=== PATIENT | female | born 1965 | race Hispanic/Latino ===

== ENCOUNTER 2020-12-04 08:28 | Inpatient (IN) | payer OTHER ==
[2020-12-04] VITALS (12 sets, daily range): BP systolic 123–154; BP diastolic 64–89
[~2020-12-04] VITALS: Ht 170.2 cm; Wt 59.9 kg
[2020-12-04] MEDS ORDERED: ZOSYN 3.375GM +NS 50ML IV ONE (09:15)
[2020-12-04] MEDS ORDERED: ACETAMINOPHEN 325 MG TAB PO ONE (09:15)
[2020-12-04] MEDS ORDERED: DIPH,PERTUSS(ACELL),TET VAC/PF 0.5 ML VIAL IM SCH (09:15)
[2020-12-04] MEDS ORDERED: NACL 0.9% 1000ML 1,000 ML IV ONE (09:15)
[2020-12-04] MEDS ORDERED: 0.9% NACL 50ML 50 ML IV ONE ×2 (09:34→18:57)
[2020-12-04 09:59] LABS: BASOPHILS % (AUTO) 0.1 % (0.0-5.0); EOSINOPHILS % (AUTO) 0.9 % (0.0-8.0); HEMATOCRIT 35.8 % (36-48); MEAN CORPUSCULAR HEMOGLOBIN 26.4 pg (27.0-33.0); MEAN CORPUSCULAR HGB CONC 30.7 g/dL (32.0-36.0); MEAN CORPUSCULAR VOLUME 85.9 fL (79-99); MONOCYTES % (AUTO) 5.2 % (3.0-13.0); NEUTROPHILS % (AUTO) 85.3 % (40.0-77.0); PLATELET COUNT (AUTO) 229 K/uL (130-400); RED BLOOD CELL COUNT(AUTO) 4.17 MIL/uL (4.00-5.50); RED CELL DISTRIBUTION WIDTH 14.2 % (11.0-15.5); WHITE BLOOD COUNT (AUTO) 7.6 K/uL (4.8-10.8)
[2020-12-04] MEDS: NACL 0.9% 1000ML 1,000 ML IV SCH ×2 (10:00→21:00)
[2020-12-04] MEDS ORDERED: LACTULOSE 20 GM/30 ML UDCUP PO PRN (10:00)
[2020-12-04] MEDS ORDERED: NACL 0.9% 1000ML 1,000 ML IV SCH (10:00)
[2020-12-04] MEDS ORDERED: ACETAMINOPHEN 325 MG TAB PO PRN ×2 (10:00)
[2020-12-04] MEDS ORDERED: ONDANSETRON 4MG INJ IV PRN (10:00)
[2020-12-04] MEDS ORDERED: RENAL DOSE IV SCH (10:00)
[2020-12-04] MEDS ORDERED: VANCOMYCIN PROTOCOL PER PHARMACY IV PRN (10:00)
[2020-12-04] MEDS ORDERED: MORPHINE 4 MG SYG IV PRN (10:00)
[2020-12-04 10:01] LABS: APPEARANCE,URINE Clear (CLEAR); BILIRUBIN,URINE Negative (NEGATIVE); COLOR,URINE Yellow (YELLOW); GLUCOSE, URINE (UA) >=1000 mg/dL (NEGATIVE); KETONES,URINE Negative (NEGATIVE); LEUKOCYTE ESTERASE ,URINE Negative (NEGATIVE); NITRATE,URINE Negative (NEGATIVE); OCCULT BLOOD,URINE Negative (NEGATIVE); PH,URINE 7.5 (5.0-8.0); PROTEIN,URINE Negative (NEGATIVE)
[2020-12-04] MEDS ORDERED: TETANUS/DIPHTHERIA TOXOID [ADULT] 0.5 ML VIAL IM ONE ×2 (10:04→10:15)
[2020-12-04 10:10] LABS: ALBUMIN 3.1 g/dL (3.5-5.0); CREATININE 0.9 mg/dL (0.5-1.5); POTASSIUM 5.1 mmol/L (3.5-5.1)
[2020-12-04 10:11] LABS: BILIRUBIN,TOTAL 0.2 mg/dL (0.2-1.0); TOTAL PROTEIN, SERUM 8.7 g/dL (6.0-8.3)
[2020-12-04 10:23] LABS: BACTERIA,URINE Rare /HPF (None Seen); RBC,URINE 0-1 /HPF (0-1); SQUAMOUS EPITHELIAL CELL,UR Rare /HPF (0-2); WBC,URINE 0-1 /HPF (0-1)
[2020-12-04] MEDS: VANCOMYCIN KIT 250 ML IV SCH ×2 (10:43→21:00)
[2020-12-04 10:49] LABS: CRP QUANTITATIVE 167.8 mg/L (0.00-9.0)
[2020-12-04 11:02] LABS: ABG OXYGEN SATURATION 37.7 % (95.0-99.0); HCO3,VENOUS BLOOD GAS 25.6 (21.0-28.0); PCO2,VENOUS BLOOD GAS 46 (32-45); PH,VENOUS BLOOD GAS 7.363 (7.350-7.450)
[2020-12-04 11:02] LABS: ERYTHROCYTE SEDIMENTATION RATE 95 MM/HR (0-30)
[2020-12-04] MEDS: INSULIN HUMULIN R 100 UNIT/ML 3ML SQ SCH ×4 (11:27→22:06)
[2020-12-04] MEDS ORDERED: INSULIN HUMULIN R 100 UNIT/ML 3ML SQ SCH (11:30)
[2020-12-04] MEDS ORDERED: ZOSYN 3.375GM+NS 50ML 50 ML IV SCH (13:00)
[2020-12-04] MEDS ORDERED: GADOTERATE MEGLUMINE 10 MMOL/20 ML VIAL IV ONE (15:09)
[2020-12-04] MEDS: ZOSYN 3.375GM+NS 50ML 50 ML IV SCH (18:53)
[2020-12-04] MEDS: FAMOTIDINE 20MG VIAL IV SCH (21:56)
[2020-12-04] MEDS: INSULIN GLARGINE 100 UNITS/ML 10 ML VIAL SQ SCH (22:01)
[2020-12-05] MEDS: NACL 0.9% 1000ML 1,000 ML IV SCH ×4 (00:09→20:46)
[2020-12-05] MEDS: ZOSYN 3.375GM+NS 50ML 50 ML IV SCH ×3 (02:00→18:36)
[2020-12-05 04:00] VITALS: BP 120/69
[2020-12-05 05:16] LABS: BASOPHILS % (AUTO) 0.4 % (0.0-5.0); EOSINOPHILS % (AUTO) 2.2 % (0.0-8.0); HEMATOCRIT 31.2 % (36-48); LYMPHOCYTES % (AUTO) 15.6 % (21.0-51.0); MEAN CORPUSCULAR HEMOGLOBIN 26.6 pg (27.0-33.0); MEAN CORPUSCULAR HGB CONC 31.1 g/dL (32.0-36.0); MEAN CORPUSCULAR VOLUME 85.7 fL (79-99); MONOCYTES % (AUTO) 7.7 % (3.0-13.0); NEUTROPHILS % (AUTO) 73.7 % (40.0-77.0); PLATELET COUNT (AUTO) 229 K/uL (130-400); RED BLOOD CELL COUNT(AUTO) 3.64 MIL/uL (4.00-5.50); RED CELL DISTRIBUTION WIDTH 14.1 % (11.0-15.5); WHITE BLOOD COUNT (AUTO) 6.9 K/uL (4.8-10.8)
[2020-12-05 05:26] LABS: % IRON SATURATION 6.7 % (22-44)
[2020-12-05 05:39] LABS: CREATININE 0.8 mg/dL (0.5-1.5); POTASSIUM 4.1 mmol/L (3.5-5.1); THYROID STIMULATING HORMONE 0.61 uIU/mL (0.36-3.74)
[2020-12-05] MEDS: INSULIN HUMULIN R 100 UNIT/ML 3ML SQ SCH ×7 (06:17→21:11)
[2020-12-05] MEDS: FAMOTIDINE 20MG VIAL IV SCH ×3 (08:04→21:17)
[2020-12-05] MEDS: ENOXAPARIN SODIUM 40 MG/0.4 ML SYRINGE SQ SCH (08:05)
[2020-12-05 08:07] VITALS: BP 123/69
[2020-12-05] MEDS: VANCOMYCIN KIT 250 ML IV SCH (08:08)
[2020-12-05 11:33] VITALS: BP 128/74
[2020-12-05] MEDS ORDERED: COMPOUND IV MISC 1 EACH IVSOLN MISC PRN ×2 (15:00→15:15)
[2020-12-05] MEDS ORDERED: IRON SUCROSE COMPLEX 300 MG in 0.9% NACL 50ML 50 ML IV SCH (15:00)
[2020-12-05 16:30] VITALS: BP 144/78
[2020-12-05 19:00] VITALS: BP 160/87
[2020-12-05] MEDS: IRON SUCROSE COMPLEX 300 MG in 0.9% NACL 50ML 50 ML IV SCH (20:45)
[2020-12-05] MEDS ORDERED: COMPOUND IV REFRIGERATED 1 EACH IVSOLN MISC PRN (21:00)
[2020-12-05] MEDS: INSULIN GLARGINE 100 UNITS/ML 10 ML VIAL SQ SCH (21:13)
[2020-12-05] MEDS: [UNRECOGNIZED DRUG - OTHER] IV SCH (22:29)
[2020-12-05] MEDS: VANCOMYCIN IV SCH (22:29)
[2020-12-05 23:00] VITALS: BP 145/77
[2020-12-06] VITALS (20 sets, daily range): BP systolic 97–149; BP diastolic 54–83
[2020-12-06] MEDS: ZOSYN 3.375GM+NS 50ML 50 ML IV SCH ×3 (01:54→16:49)
[2020-12-06] MEDS: NACL 0.9% 1000ML 1,000 ML IV SCH ×4 (02:31→22:10)
[2020-12-06 04:07] LABS: BASOPHILS % (AUTO) 0.3 % (0.0-5.0); EOSINOPHILS % (AUTO) 2.4 % (0.0-8.0); HEMATOCRIT 30.4 % (36-48); LYMPHOCYTES % (AUTO) 19.1 % (21.0-51.0); MEAN CORPUSCULAR HEMOGLOBIN 25.8 pg (27.0-33.0); MEAN CORPUSCULAR HGB CONC 30.3 g/dL (32.0-36.0); MEAN CORPUSCULAR VOLUME 85.2 fL (79-99); MONOCYTES % (AUTO) 7.1 % (3.0-13.0); NEUTROPHILS % (AUTO) 70.6 % (40.0-77.0); PLATELET COUNT (AUTO) 229 K/uL (130-400); RED BLOOD CELL COUNT(AUTO) 3.57 MIL/uL (4.00-5.50); RED CELL DISTRIBUTION WIDTH 14.3 % (11.0-15.5); WHITE BLOOD COUNT (AUTO) 5.8 K/uL (4.8-10.8)
[2020-12-06 04:17] LABS: CREATININE 0.6 mg/dL (0.5-1.5); CRP QUANTITATIVE 70.7 mg/L (0.00-9.0); POTASSIUM 3.7 mmol/L (3.5-5.1)
[2020-12-06 05:35] LABS: ERYTHROCYTE SEDIMENTATION RATE 114 MM/HR (0-30)
[2020-12-06] MEDS: INSULIN HUMULIN R 100 UNIT/ML 3ML SQ SCH ×7 (06:54→21:27)
[2020-12-06] MEDS ORDERED: KETAMINE 50MG/ML SYRINGE 50 MG/ML DISP.SYRIN IV ONE (08:16)
[2020-12-06] MEDS ORDERED: PROPOFOL 1000 MG/100 ML 100 ML IV ONE (08:16)
[2020-12-06] MEDS ORDERED: MIDAZOLAM HCL 1 MG/ML 2ML VIAL ONE (08:17)
[2020-12-06] MEDS: VANCOMYCIN IV SCH ×2 (09:41→20:12)
[2020-12-06] MEDS: [UNRECOGNIZED DRUG - OTHER] IV SCH ×2 (09:41→20:12)
[2020-12-06] MEDS: ENOXAPARIN SODIUM 40 MG/0.4 ML SYRINGE SQ SCH (09:41)
[2020-12-06] MEDS: FAMOTIDINE 20MG VIAL IV SCH ×2 (09:43→20:11)
[2020-12-06] MEDS: MORPHINE 2 MG SYG IV PRN ×2 (15:23→22:53)
[2020-12-06] MEDS ORDERED: BUPIVACAINE/PF 0.5% 30ML VIAL ONE (16:50)
[2020-12-06] MEDS ORDERED: LIDOCAINE HCL 1% 20 ML VIAL ONE (16:50)
[2020-12-06] MEDS: IRON SUCROSE COMPLEX 300 MG in 0.9% NACL 50ML 50 ML IV SCH (21:26)
[2020-12-06] MEDS: INSULIN GLARGINE 100 UNITS/ML 10 ML VIAL SQ SCH (21:27)
[2020-12-07] MEDS: ZOSYN 3.375GM+NS 50ML 50 ML IV SCH ×3 (01:57→16:47)
[2020-12-07 03:03] VITALS: BP 103/62
[2020-12-07 04:43] LABS: BASOPHILS % (AUTO) 0.4 % (0.0-5.0); EOSINOPHILS % (AUTO) 2.8 % (0.0-8.0); HEMATOCRIT 29.9 % (36-48); LYMPHOCYTES % (AUTO) 22.1 % (21.0-51.0); MEAN CORPUSCULAR HEMOGLOBIN 26.4 pg (27.0-33.0); MEAN CORPUSCULAR HGB CONC 30.8 g/dL (32.0-36.0); MEAN CORPUSCULAR VOLUME 85.7 fL (79-99); MONOCYTES % (AUTO) 8.9 % (3.0-13.0); NEUTROPHILS % (AUTO) 65.1 % (40.0-77.0); PLATELET COUNT (AUTO) 240 K/uL (130-400); RED BLOOD CELL COUNT(AUTO) 3.49 MIL/uL (4.00-5.50); RED CELL DISTRIBUTION WIDTH 14.6 % (11.0-15.5); WHITE BLOOD COUNT (AUTO) 7.1 K/uL (4.8-10.8)
[2020-12-07 04:46] LABS: CREATININE 0.8 mg/dL (0.5-1.5)
[2020-12-07] MEDS: NACL 0.9% 1000ML 1,000 ML IV SCH (06:02)
[2020-12-07] MEDS: INSULIN HUMULIN R 100 UNIT/ML 3ML SQ SCH ×7 (06:11→21:00)
[2020-12-07 08:26] VITALS: BP 124/69
[2020-12-07] MEDS: ENOXAPARIN SODIUM 40 MG/0.4 ML SYRINGE SQ SCH (08:45)
[2020-12-07] MEDS: FAMOTIDINE 20MG VIAL IV SCH (08:45)
[2020-12-07] MEDS: [UNRECOGNIZED DRUG - OTHER] IV SCH ×2 (08:46→21:04)
[2020-12-07] MEDS: VANCOMYCIN IV SCH ×2 (08:46→21:04)
[2020-12-07] MEDS ORDERED: MORPHINE 2 MG SYG IVP PRN (10:45)
[2020-12-07] MEDS ORDERED: APAP-CODEINE 300/30MG TAB PO PRN ×2 (10:45)
[2020-12-07 11:57] VITALS: BP 116/66
[2020-12-07 16:45] VITALS: BP 126/63
[2020-12-07 20:00] VITALS: BP 112/63
[2020-12-07] MEDS: FAMOTIDINE 20MG TAB PO SCH (20:00)
[2020-12-07] MEDS: IRON SUCROSE COMPLEX 300 MG in 0.9% NACL 50ML 50 ML IV SCH (20:01)
[2020-12-07] MEDS: INSULIN GLARGINE 100 UNITS/ML 10 ML VIAL SQ SCH (21:50)
[2020-12-07 23:56] VITALS: BP 140/72
[2020-12-08] MEDS: ZOSYN 3.375GM+NS 50ML 50 ML IV SCH ×3 (01:51→17:28)
[2020-12-08 04:00] VITALS: BP 141/75
[2020-12-08 04:16] LABS: BASOPHILS % (AUTO) 0.3 % (0.0-5.0); CREATININE 0.6 mg/dL (0.5-1.5); HEMATOCRIT 30.9 % (36-48); LYMPHOCYTES % (AUTO) 17.4 % (21.0-51.0); MAGNESIUM 1.8 mg/dL (1.80-2.40); MEAN CORPUSCULAR HEMOGLOBIN 26.2 pg (27.0-33.0); MEAN CORPUSCULAR HGB CONC 30.7 g/dL (32.0-36.0); MEAN CORPUSCULAR VOLUME 85.4 fL (79-99); MONOCYTES % (AUTO) 7.9 % (3.0-13.0); NEUTROPHILS % (AUTO) 71.2 % (40.0-77.0); PLATELET COUNT (AUTO) 238 K/uL (130-400); POTASSIUM 4.4 mmol/L (3.5-5.1); RED BLOOD CELL COUNT(AUTO) 3.62 MIL/uL (4.00-5.50); RED CELL DISTRIBUTION WIDTH 14.7 % (11.0-15.5); WHITE BLOOD COUNT (AUTO) 7.9 K/uL (4.8-10.8)
[2020-12-08 05:26] LABS: ERYTHROCYTE SEDIMENTATION RATE 104 MM/HR (0-30)
[2020-12-08] MEDS: INSULIN HUMULIN R 100 UNIT/ML 3ML SQ SCH ×7 (06:34→20:22)
[2020-12-08 07:00] VITALS: BP 128/74
[2020-12-08] MEDS: FAMOTIDINE 20MG TAB PO SCH ×2 (08:47→20:21)
[2020-12-08] MEDS: VANCOMYCIN IV SCH ×2 (08:48→20:23)
[2020-12-08] MEDS: [UNRECOGNIZED DRUG - OTHER] IV SCH ×2 (08:48→20:23)
[2020-12-08] MEDS: ENOXAPARIN SODIUM 40 MG/0.4 ML SYRINGE SQ SCH (08:48)
[2020-12-08 11:00] VITALS: BP 122/67
[2020-12-08 15:00] VITALS: BP 115/65
[2020-12-08] MEDS: IRON SUCROSE COMPLEX 300 MG in 0.9% NACL 50ML 50 ML IV SCH (19:24)
[2020-12-08 19:49] VITALS: BP 130/67
[2020-12-08] MEDS: INSULIN GLARGINE 100 UNITS/ML 10 ML VIAL SQ SCH (20:23)
[2020-12-08 23:57] VITALS: BP 129/74
[2020-12-09] MEDS: ZOSYN 3.375GM+NS 50ML 50 ML IV SCH ×3 (01:46→16:46)
[2020-12-09 03:48] LABS: BASOPHILS % (AUTO) 0.6 % (0.0-5.0); EOSINOPHILS % (AUTO) 3.2 % (0.0-8.0); HEMATOCRIT 28.9 % (36-48); LYMPHOCYTES % (AUTO) 20.3 % (21.0-51.0); MEAN CORPUSCULAR HEMOGLOBIN 26.3 pg (27.0-33.0); MEAN CORPUSCULAR HGB CONC 30.8 g/dL (32.0-36.0); MEAN CORPUSCULAR VOLUME 85.3 fL (79-99); MONOCYTES % (AUTO) 10.1 % (3.0-13.0); NEUTROPHILS % (AUTO) 62.1 % (40.0-77.0); PLATELET COUNT (AUTO) 270 K/uL (130-400); RED BLOOD CELL COUNT(AUTO) 3.39 MIL/uL (4.00-5.50); RED CELL DISTRIBUTION WIDTH 14.9 % (11.0-15.5); WHITE BLOOD COUNT (AUTO) 7.1 K/uL (4.8-10.8)
[2020-12-09 03:55] VITALS: BP 125/68
[2020-12-09 03:59] LABS: CREATININE 0.6 mg/dL (0.5-1.5); POTASSIUM 3.9 mmol/L (3.5-5.1)
[2020-12-09] MEDS: INSULIN HUMULIN R 100 UNIT/ML 3ML SQ SCH ×8 (06:08→21:00)
[2020-12-09] MEDS: FAMOTIDINE 20MG TAB PO SCH ×2 (07:22→21:02)
[2020-12-09] MEDS: ENOXAPARIN SODIUM 40 MG/0.4 ML SYRINGE SQ SCH (07:22)
[2020-12-09] MEDS: VANCOMYCIN IV SCH ×2 (07:23→20:51)
[2020-12-09] MEDS: [UNRECOGNIZED DRUG - OTHER] IV SCH ×2 (07:23→20:51)
[2020-12-09 08:06] VITALS: BP 131/69
[2020-12-09 11:24] VITALS: BP 117/67
[2020-12-09 15:54] VITALS: BP 120/70
[2020-12-09] MEDS: IRON SUCROSE COMPLEX 300 MG in 0.9% NACL 50ML 50 ML IV SCH (16:02)
[2020-12-09] MEDS: INSULIN GLARGINE 100 UNITS/ML 10 ML VIAL SQ SCH (21:00)
[2020-12-09 21:22] VITALS: BP 123/56
[2020-12-09 23:51] VITALS: BP 135/73
[2020-12-10] MEDS: ZOSYN 3.375GM+NS 50ML 50 ML IV SCH ×2 (01:02→10:24)
[2020-12-10 06:36] LABS: CREATININE 0.7 mg/dL (0.5-1.5); POTASSIUM 3.8 mmol/L (3.5-5.1)
[2020-12-10 06:40] VITALS: BP 137/73
[2020-12-10 06:44] LABS: BASOPHILS % (AUTO) 0.6 % (0.0-5.0); EOSINOPHILS % (AUTO) 2.7 % (0.0-8.0); HEMATOCRIT 30.7 % (36-48); LYMPHOCYTES % (AUTO) 17.8 % (21.0-51.0); MEAN CORPUSCULAR HEMOGLOBIN 26.6 pg (27.0-33.0); MEAN CORPUSCULAR HGB CONC 30.6 g/dL (32.0-36.0); MONOCYTES % (AUTO) 8.6 % (3.0-13.0); NEUTROPHILS % (AUTO) 66.2 % (40.0-77.0); PLATELET COUNT (AUTO) 293 K/uL (130-400); RED BLOOD CELL COUNT(AUTO) 3.53 MIL/uL (4.00-5.50); RED CELL DISTRIBUTION WIDTH 15.3 % (11.0-15.5); WHITE BLOOD COUNT (AUTO) 8.5 K/uL (4.8-10.8)
[2020-12-10] MEDS: INSULIN HUMULIN R 100 UNIT/ML 3ML SQ SCH ×4 (06:51→11:13)
[2020-12-10] MEDS: ENOXAPARIN SODIUM 40 MG/0.4 ML SYRINGE SQ SCH (07:30)
[2020-12-10] MEDS: FAMOTIDINE 20MG TAB PO SCH (07:30)
[2020-12-10 08:03] VITALS: BP 132/75
[2020-12-10] MEDS: [UNRECOGNIZED DRUG - OTHER] IV SCH (08:50)
[2020-12-10] MEDS: VANCOMYCIN IV SCH (08:50)
[2020-12-10 11:43] VITALS: BP 123/70
== END 2020-12-10 16:55 | disposition home or self-care (01) | DRG 617 ==
LOC: EDH 08:28 → EDHIP 08:29 → 4BH 23:32
PROVIDERS: ADMIT Internal Medicine; ATTEND Internal Medicine
PROC: 0Y6M0Z9 Detachment at Right Foot, Partial 1st Ray, Open Approach (ICD-10-PCS; principal; 2020-12-06 08:32)
DX: E10.69 Type 1 diabetes mellitus with other specified complication (principal); E87.1 Hypo-osmolality and hyponatremia; L02.611 Cutaneous abscess of right foot; M86.171 Other acute osteomyelitis, right ankle and foot; E10.65 Type 1 diabetes mellitus with hyperglycemia; E10.42 Type 1 diabetes mellitus with diabetic polyneuropathy; I10 Essential (primary) hypertension; R70.0 Elevated erythrocyte sedimentation rate; R79.82 Elevated C-reactive protein (CRP); S90.454A Superficial foreign body, right lesser toe(s), initial encounter; X58.XXXA Exposure to other specified factors, initial encounter; D50.9 Iron deficiency anemia, unspecified; L03.031 Cellulitis of right toe; Z79.4 Long term (current) use of insulin; Z91.14 Patient's other noncompliance with medication regimen; Y93.89 Activity, other specified; Y99.8 Other external cause status; Y92.89 Other specified places as the place of occurrence of the external cause
CPT/HCPCS: 36415; 36600; 73630; 73720; 80048; 80053; 80202; 81001; 82010; 82435; 82550; 82607; 82728; 82746; 82803; 82947; 82948; 83036; 83540; 83550; 83605; 83735; 84132; 84145; 84295; 84443; 85025; 85045; 85651; 86140; 87040; 87070; 87076; 87205; 90714; 90715; 93925; G0378; J1650; J1756; J1815; J2250; J2405; J2543; J2704; J3370; J3490; J7030; J7050

== ENCOUNTER 2021-05-26 22:02 | Emergency (ER) | payer OTHER ==
[~2021-05-26] VITALS: Ht 170.2 cm; Wt 61.7 kg
[2021-05-26 22:03] VITALS: BP 132/82
[2021-05-27] MEDS ORDERED: MAGNESIUM CITRATE 296 ML SOLUTION ONE (00:22)
[2021-05-27] MEDS ORDERED: POLY17PO4 PO (00:24)
[2021-05-27] MEDS ORDERED: MAGNESIUM CITRATE 296 ML SOLUTION PO ONE (00:30)
== END 2021-05-27 00:31 | disposition home or self-care (01) ==
LOC: EDH 22:02
DX: K59.00 Constipation, unspecified (principal); E11.9 Type 2 diabetes mellitus without complications; Z79.899 Other long term (current) drug therapy
CPT/HCPCS: 74018

== ENCOUNTER 2021-12-14 15:55 | Emergency (ER) | payer OTHER ==
[~2021-12-14] VITALS: Ht 170.2 cm; Wt 59.0 kg
[~2021-12-14 15:55] MED LIST: POLY17PO4 PO
[2021-12-14] MEDS ORDERED: LORAZEPAM 1 MG TABLET PO ONE (16:30)
[2021-12-14] MEDS ORDERED: 0.9%NACL 1000ML 1,000 ML IV SCH (17:00)
[2021-12-14] MEDS ORDERED: FAMOTIDINE 20MG TAB PO ONE (17:00)
[2021-12-14] MEDS ORDERED: INSULIN HUMULIN R 100 UNIT/ML 3ML IV ONE (17:00)
[2021-12-14 17:42] LABS: ALBUMIN 3.6 g/dL (3.5-5.0); BILIRUBIN,TOTAL 0.6 mg/dL (0.2-1.0); CREATININE 1.1 mg/dL (0.5-1.5); POTASSIUM 3.6 mmol/L (3.5-5.1); TOTAL PROTEIN, SERUM 8.7 g/dL (6.0-8.3)
[2021-12-14] MEDS ORDERED: CETI1SOL17 PO (18:00)
[2021-12-14] MEDS ORDERED: FAMO-136 PO (18:00)
[2021-12-14 18:04] VITALS: BP 130/69
== END 2021-12-14 18:15 | disposition home or self-care (01) ==
LOC: EDH 15:55
DX: S00.06XA Insect bite (nonvenomous) of scalp, initial encounter (principal); S80.862A Insect bite (nonvenomous), left lower leg, initial encounter; S80.861A Insect bite (nonvenomous), right lower leg, initial encounter; L50.9 Urticaria, unspecified; E11.65 Type 2 diabetes mellitus with hyperglycemia; F41.9 Anxiety disorder, unspecified; F32.A Depression, unspecified; E11.9 Type 2 diabetes mellitus without complications; I10 Essential (primary) hypertension; W57.XXXA Bitten or stung by nonvenomous insect and other nonvenomous arthropods, initial encounter; Y93.89 Activity, other specified; Y92.89 Other specified places as the place of occurrence of the external cause; Y99.8 Other external cause status
CPT/HCPCS: 36415; 80053; 82010; 82948 ×2; 96361; 96374; 99283; J1815

== ENCOUNTER 2022-03-14 09:28 | Emergency (ER) | payer OTHER ==
[~2022-03-14] VITALS: Ht 170.2 cm; Wt 62.1 kg
[~2022-03-14 09:28] MED LIST changes: +CETI1SOL17 PO; +FAMO-136 PO
[2022-03-14 09:29] VITALS: BP 105/69
[2022-03-14 10:26] LABS: BASOPHILS % (AUTO) 0.3 % (0.0-5.0); EOSINOPHILS % (AUTO) 2.5 % (0.0-8.0); HEMATOCRIT 39.4 % (36-48); LYMPHOCYTES % (AUTO) 16.7 % (21.0-51.0); MEAN CORPUSCULAR HEMOGLOBIN 31.9 pg (27.0-33.0); MONOCYTES % (AUTO) 7.3 % (3.0-13.0); NEUTROPHILS % (AUTO) 72.9 % (40.0-77.0); PLATELET COUNT (AUTO) 234 K/uL (130-400); RED BLOOD CELL COUNT(AUTO) 4.33 MIL/uL (4.00-5.50); RED CELL DISTRIBUTION WIDTH 13.1 % (11.0-15.5); WHITE BLOOD COUNT (AUTO) 11.4 K/uL (4.8-10.8)
[2022-03-14 10:39] LABS: ALBUMIN 3.6 g/dL (3.5-5.0); CREATININE 0.9 mg/dL (0.5-1.5); POTASSIUM 3.7 mmol/L (3.5-5.1); TOTAL PROTEIN, SERUM 8.6 g/dL (6.0-8.3)
[2022-03-14] MEDS ORDERED: ACETAMINOPHEN 500 MG TABLET PO ONE (12:30)
[2022-03-14] MEDS ORDERED: CEPHALEXIN 500 MG CAPSULE PO ONE (12:30)
[2022-03-14] MEDS ORDERED: ACET-2247 PO (12:49)
[2022-03-14] MEDS ORDERED: CEPH500B PO (12:49)
== END 2022-03-14 13:24 | disposition home or self-care (01) ==
LOC: EDH 09:28
DX: S90.821A Blister (nonthermal), right foot, initial encounter (principal); I10 Essential (primary) hypertension; E11.9 Type 2 diabetes mellitus without complications; X58.XXXA Exposure to other specified factors, initial encounter; Y93.89 Activity, other specified; Y92.89 Other specified places as the place of occurrence of the external cause; Y99.8 Other external cause status
CPT/HCPCS: 36415; 80053; 85025

== ENCOUNTER 2023-09-13 13:37 | Emergency (ER) | payer BC, OTHER ==
[~2023-09-13] VITALS: Ht 157.5 cm; Wt 61.2 kg
[~2023-09-13 13:37] MED LIST changes: +ACET-2247 PO; +CEPH500B PO
[2023-09-13 14:55] LABS: BASOPHILS # (AUTO) 0.03 K/uL (0.00-0.20); BASOPHILS % (AUTO) 0.4 % (0.0-5.0); EOSINOPHILS # (AUTO) 0.07 K/uL (0.00-0.70); EOSINOPHILS % (AUTO) 0.9 % (0.0-8.0); HEMATOCRIT 34.9 % (36-48); IMMATURE GRANULOCYTE ABSOLUTE 0.03 K/uL (0-1); LYMPHOCYTES # (AUTO) 1.2 K/uL (1.0-4.8); LYMPHOCYTES % (AUTO) 15.7 % (21.0-51.0); MEAN CORPUSCULAR HEMOGLOBIN 30.2 pg (27.0-33.0); MEAN CORPUSCULAR HGB CONC 33.8 g/dL (32.0-36.0); MEAN CORPUSCULAR VOLUME 89.3 fL (79-99); MONOCYTES # (AUTO) 0.4 K/uL (0.1-1.0); MONOCYTES % (AUTO) 5.8 % (3.0-13.0); NEUTROPHILS # (AUTO) 5.9 K/uL (1.8-7.7); NEUTROPHILS % (AUTO) 76.8 % (40.0-77.0); PLATELET COUNT (AUTO) 223 K/uL (130-400); RED BLOOD CELL COUNT(AUTO) 3.91 MIL/uL (4.00-5.50); RED CELL DISTRIBUTION WIDTH 12.6 % (11.0-15.5); WHITE BLOOD COUNT (AUTO) 7.7 K/uL (4.8-10.8)
[2023-09-13 15:01] LABS: ALBUMIN 2.9 g/dL (3.5-5.0); BILIRUBIN,TOTAL 0.2 mg/dL (0.2-1.0); CREATININE 0.8 mg/dL (0.5-1.0); MAGNESIUM 1.7 mg/dL (1.80-2.40); POTASSIUM 4.3 mmol/L (3.5-5.1); TOTAL PROTEIN, SERUM 7.4 g/dL (6.0-8.3)
[2023-09-13] MEDS: ASPIRIN 325MG TAB PO ONE (15:08)
[2023-09-13] MEDS ORDERED: IOHEXOL-350 75 ML VIAL IV ONE (17:08)
[2023-09-13] MEDS: INSULIN HUMULIN R 100 UNIT/ML 3ML IV ONE (18:14)
[2023-09-13] MEDS: 0.9%NACL 1000ML 1,000 ML IV ONE (18:14)
[2023-09-13 18:34] VITALS: BP 142/78; PULSE 84; RESP 18; O2SAT 98
[2023-09-13 19:36] LABS: APPEARANCE,URINE CLEAR (CLEAR); BILIRUBIN,URINE NEGATIVE (NEGATIVE); COLOR,URINE LIGHT-YELLOW (YELLOW); GLUCOSE, URINE (UA) >=1000 mg/dL (NEGATIVE); KETONES,URINE NEGATIVE (NEGATIVE); LEUKOCYTE ESTERASE ,URINE NEGATIVE Leu/uL (NEGATIVE); NITRATE,URINE NEGATIVE (NEGATIVE); OCCULT BLOOD,URINE NEGATIVE (NEGATIVE); PH,URINE 5.5 (5.0-8.0); PROTEIN,URINE NEGATIVE (NEGATIVE); UROBILINOGEN,URINE 0.2 mg/dL (0.2-1.0)
[2023-09-13 19:39] LABS: ADD UA MICROSCOPIC YES
[2023-09-13 19:48] LABS: MUCUS,URINE RARE LPF (None Seen); RBC,URINE 0-1 /HPF (0-1); SQUAMOUS EPITHELIAL CELL,UR RARE /HPF (0-2)
== END 2023-09-13 19:10 | disposition short-term general hospital (02) ==
LOC: EDH 13:37
DX: R20.0 Anesthesia of skin (principal); I63.9 Cerebral infarction, unspecified; E11.65 Type 2 diabetes mellitus with hyperglycemia; F41.9 Anxiety disorder, unspecified; I10 Essential (primary) hypertension
CPT/HCPCS: 99285; 70450; 96374; 83735; 84484; 80053; 85025; 82948; 81001; 36415; 70496; 70498; 93005; J1815; Q9967

== ENCOUNTER 2024-09-23 14:30 | Inpatient (IN) | payer SELFPAY ==
[~2024-09-23] VITALS: Ht 170.2 cm; Wt 60.3 kg
--- NOTE | 2024-09-23 15:44 | HMCIMG ---
RIGHT SECOND THROUGH FIFTH TOE RADIOGRAPHS - 2-3 VIEWS INDICATION: Pain after injury COMPARISON: None FINDINGS: AP, lateral views. Amputation of the first toe phalanges. No acute fracture or subluxation identified. No significant degenerative joint disease detected. No radiopaque foreign body noted. IMPRESSION: No evidence for fracture or subluxation.
--- NOTE | 2024-09-23 15:45 | ERN ---
General Chief Complaint: Toe Pain/Injury Stated Complaint: SWOLLEN FEET, DISCOLORATION Time Seen by MD: 14:43 History of Present Illness Initial Comments 59-year-old female, diabetic, presents for right toe swelling. She reports it has been present for a couple of days. She thinks she may have injured it. She has peripheral neuropathy in his unable to feel the toes. no systemic symptoms. Allergies: Coded Allergies: No Known Allergies (Unverified Allergy, Unknown, 12/04/20) Home Meds Active Scripts Acetaminophen (Tylenol) 325 Mg Tablet, 650 MG PO Q4HPRN, #50 TAB Prov:KATHERIN YODER 03/14/22 Cephalexin Monohydrate (Keflex) 500 Mg Cap, 500 MG PO TID for 7 Days, #21 CAP Prov:KATHERIN YODER 03/14/22 Famotidine (Pepcid) 20 Mg Tablet, 20 MG PO BID, #30 TAB Prov:KATHERIN YODER 12/14/21 Cetirizine HCl (Zyrtec Syrup 1 mg/1 ml) 1 Mg/1 Ml Solution, 10 MG PO BID for 5 Days, #120 ML Prov:KATHERIN YODER 12/14/21 Polyethylene Glycol 3350 (Miralax) 17 Gm Powd.pack, 17 GM PO DAILY, #528 G Prov:GISELE MCCRAY MD 05/27/21 Past Medical History Past Medical History: Anxiety, Depression, Diabetes-Type I, Diabetes-Type II, Hypertension Past Surgical History: Other Surgical History Other: RT GREAT TOE Family History Family History: Negative Social History Social History: Negative, Lives with family ROS Dictation CONSTITUTIONAL: No chills, no fever, no weakness, no diaphoresis, no malaise. HEAD/FACE: No signs of trauma. EENT: No eye pain, no blurred vision, no tearing, no double vision, no ear pain, no ear discharge, no nose pain, no nasal congestion, no throat pain, no throat swelling, no mouth pain. RESPIRATORY: No cough, no orthopnea, no SOB, no stridor, no wheezing. CARDIOVASCULAR: No chest pain, no edema, no palpitations, no syncope. GASTROINTESTINAL/ABDOMINAL: No abdominal pain, no constipation, no diarrhea, no nausea, no vomiting. GENITOURINARY: No abnormal discharge, no dysuria, no frequent urination, no hematuria. No complaints of pain in the genitals. MUSCULOSKELETAL: No back pain, no gout, no joint pain, no joint swelling, no muscle pain, no muscle stiffness, no neck pain. INTEGUMENTARY: No change in color, no change in hair/nails, no dryness, no lesion, no lumps, no rash. NEUROLOGICAL/PSYCH: No anxiety, not depressed, no emotional problem, no headache, no numbness, no pre-existing deficit, no history of seizures, no tremors, no weakness. HEMATOLOGIC/LYMPHATIC: Not anemic, no history of blood clots, no apparent bleeding, no bruising, glands not swollen. All Systems Negative, Except as Noted. Physical Exam Physical Exam Dictation VITAL SIGNS: Reviewed. GENERAL APPEARANCE: Alert, oriented x3, no acute distress HEAD AND FACE: Non-traumatic. EYES: PERRL, pink conjunctivas, eyelid no trauma, anterior chamber clear. EARS: Pinnas intact and no signs of trauma or erythema. Ear canals clear and no discharge. TMs no erythema. NOSE: No discharge, no bleeding. OROPHARYNX: Mouth normal, teeth no caries, tongue pink. Pharynx clear, no erythema. Tonsils no exudates, no abscesses noted. Mucous membrane moist. NECK: Supple, non-tender, no thyromegaly, no masses, no JVD, no bruits. BREAST: Deferred. CHEST: No tenderness, no crepitus, no paradoxical movement, no retractions. LUNGS: Clear, well-ventilated, symmetric, no rales, no wheezing, no rhonchi, no stridor, good breath sounds bilaterally. HEART: Regular rate, regular rhythm, no murmur, no gallops. VASCULAR: No peripheral edema. ABDOMEN: Soft, positive bowel sounds, nondistended, no guarding, nontender, no rebound, no masses no hepatomegaly, no splenomegaly, no Bocanegra's sign, no hernias. RECTAL: Deferred. GENITAL: Deferred. NEUROLOGICAL: Normal speech, gross motor function intact, gross sensory function intact. MUSCULOSKELETAL: Neck nontender, full range of motion, back nontender, full range of motion. Right 3rd toe swelling erythema EXTREMITIES: Nontender, full range of motion. SKIN: Color pink, dry, no turgor, no rash, no lacerations, no abrasions, no contusions. LYMPHATICS: Deferred. Results Laboratory and Microbiology Lab and Micro Result Laboratory Tests Test 09/23/24 16:10 White Blood Count 15.9 K/uL (4.8-10.8) H Red Blood Count 4.07 MIL/uL (4.00-5.50) Hemoglobin 12.6 g/dL (12.0-16.0) Hematocrit 37.0 % (36-48) Mean Corpuscular Volume 90.9 fL (79-99) Mean Corpuscular Hemoglobin 31.0 pg (27.0-33.0) Mean Corpuscular Hemoglobin Concent 34.1 g/dL (32.0-36.0) Red Cell Distribution Width 12.9 % (11.0-15.5) Platelet Count 232 K/uL (130-400) Mean Platelet Volume 10.0 fL (7.5-10.5) Immature Granulocyte % (Auto) 0.5 % (0-1) Neutrophils (%) (Auto) 88.3 % (40.0-77.0) H Lymphocytes (%) (Auto) 5.2 % (21.0-51.0) L Monocytes (%) (Auto) 5.1 % (3.0-13.0) Eosinophils (%) (Auto) 0.6 % (0.0-8.0) Basophils (%) (Auto) 0.3 % (0.0-5.0) Neutrophils # (Auto) 14.0 K/uL (1.8-7.7) H Lymphocytes # (Auto) 0.8 K/uL (1.0-4.8) L Monocytes # (Auto) 0.8 K/uL (0.1-1.0) Eosinophils # (Auto) 0.09 K/uL (0.00-0.70) Basophils # (Auto) 0.04 K/uL (0.00-0.20) Absolute Immature Granulocyte (auto 0.08 K/uL (0-1) Nucleated Red Blood Cells 0.0 % (0.0-0.19) MDM CC: Right 3rd digit distal toe erythema Historian: Patient Comorbidities: Diabetes, previous toe amputation Limitations by social determinants of health: None Differential diagnosis: Trauma versus diabetic foot infection Vital signs: Stable remained stable Labs (independently interpreted by me): Leukocytosis 15 K, left shift. CRP elevated. Metabolic panel shows mild dehydration otherwise unremarkable. foot XR (independently interpreted by me ): No signs of osteomyelitis or fracture. No free air. Patient appears to have a diabetic foot infection, we will start with vancomycin and Zosyn, given a fluid bolus here in the ER. We will admit. Consultation: Hospitalist for admission. ED Course Orders Procedure Category Date Status Time Toe(S) 2+Vws Rt RAD 09/23/24 Resulted 14:51 Cbc With Differential LAB 09/23/24 In Process 15:14 Basic Metabolic Panel LAB 09/23/24 In Process 15:14 Crp Quantitative LAB 09/23/24 In Process 15:14 Erythrocyte LAB 09/23/24 In Process Sedimentation Rate 15:14 Blood Cult RUPALI 09/23/24 Logged 15:14 Zosyn 3.375gm+Ns 50ml PHA 09/23/24 Logged (Zosyn 3.375gm+Ns 16:30 Vancomycin 1g/250ml PHA 09/23/24 Logged Kit (Vancomycin 1g/2 16:30 Current Medications Medications (Trade) Dose Ordered Sig/David Route PRN Reason Start Time Stop Time Status Last Admin Dose Admin Piperacillin Sod/ Tazobactam Sod (Zosyn 3.375gm+NS 50ml) 3.375 gm Q8H IV 09/23/24 16:30 10/03/24 16:29 UNV Vancomycin HCl (Vancomycin 1g/ 250ml Kit) 1 gm Q12H IV 09/23/24 16:30 10/03/24 16:29 UNV Vital Signs Date Time Temp Pulse Resp B/P (MAP) Pulse Ox O2 Delivery O2 Flow Rate FiO2 09/23/24 14:38 99.3 104 16 125/70 99 Room Air 0 DX & DISP Disposition: Inpatient Departure Impression: Primary Impression: Diabetic infection of right foot Condition: Stable Referrals: TAMMY DASH PA-C (PCP) SANDER WADE DO Sep 23, 2024 15:45
[2024-09-23 16:18] LABS: BASOPHILS # (AUTO) 0.04 K/uL (0.00-0.20); BASOPHILS % (AUTO) 0.3 % (0.0-5.0); EOSINOPHILS # (AUTO) 0.09 K/uL (0.00-0.70); EOSINOPHILS % (AUTO) 0.6 % (0.0-8.0); IMMATURE GRANULOCYTE ABSOLUTE 0.08 K/uL (0-1); LYMPHOCYTES # (AUTO) 0.8 K/uL (1.0-4.8); LYMPHOCYTES % (AUTO) 5.2 % (21.0-51.0); MEAN CORPUSCULAR HGB CONC 34.1 g/dL (32.0-36.0); MEAN CORPUSCULAR VOLUME 90.9 fL (79-99); MONOCYTES # (AUTO) 0.8 K/uL (0.1-1.0); MONOCYTES % (AUTO) 5.1 % (3.0-13.0); NEUTROPHILS % (AUTO) 88.3 % (40.0-77.0); PLATELET COUNT (AUTO) 232 K/uL (130-400); RED BLOOD CELL COUNT(AUTO) 4.07 MIL/uL (4.00-5.50); RED CELL DISTRIBUTION WIDTH 12.9 % (11.0-15.5); WHITE BLOOD COUNT (AUTO) 15.9 K/uL (4.8-10.8)
[2024-09-23 16:27] LABS: CREATININE 0.9 mg/dL (0.5-1.0); POTASSIUM 3.8 mmol/L (3.5-5.1)
[2024-09-23] MEDS: ZOSYN 3.375GM +NS 50ML IV SCH (16:46)
[2024-09-23] MEDS: VANCOMYCIN KIT 1 GM/250 ML IV.KIT IV SCH (16:47)
[2024-09-23] MEDS: LACTATED RINGERS 1000ML 1,000 ML IV ONE (16:47)
[2024-09-23] MEDS ORDERED: ondanSETRON 4MG INJ IVP PRN (17:00)
[2024-09-23] MEDS ORDERED: LACTULOSE 20 GM/30 ML UDCUP PO PRN (17:00)
[2024-09-23] MEDS ORDERED: acetaMINOPHEN WITH coDEINE 1 TAB TAB PO PRN (17:00)
[2024-09-23] MEDS ORDERED: MAGNESIUM 2GM PREMIX 50ML 50 ML IV PRN (17:00)
[2024-09-23] MEDS ORDERED: PoTASSium chl 10% ELIXIR 20MEQ 20 MEQ/15 ML UDCUP PO PRN (17:00)
[2024-09-23] MEDS ORDERED: hydrALAZine 20MG/ML VIAL IV PRN (17:00)
--- NOTE | 2024-09-23 17:01 | HP ---
[facility] PHYS[facility] Date of Service: Sep 23, 2024 Time of Service: 16:41 HISTORY OF PRESENT ILLNESS: [ ] admission date: 09/23/24 PCP: DR Hema Montalvo chief complaints: right 3rd toe swelling and redness This is a 59-year-old presents in ED with concern of her right 3rd toe swelling and redness and decided to come to ED for further evaluation. Onset for several days. Patient reports no injury to foot. Patient reports she has peripheral neuropathy. Noted cellulitis and discoloration of 3rd toe no drainage. She denies fever chills. We will do further imaging to rule out osteomyelitis we will be started on broad-spectrum antibiotics. Patient was seen in ED she is fully alert oriented x3. patient has a history of PAD REVIEW OF SYSTEMS a 14 point ROS obtained all relevant positive documented otherwise ROS negative PAST MEDICAL HISTORY: [ ] Diabetes type PAST SURGICAL HISTORY: [ ] Right great toe amputation PAST SOCIAL HISTORY: [ ] Denies any tobacco use alcohol use or any illicit CAD drug use FAMILY HISTORY: [ ] Diabetes Coded Allergies: No Known Allergies (Unverified Allergy, Unknown, 12/04/20) PHYSICAL EXAM GENERAL APPEARANCE: The patient is awake, alert, and oriented, in no acute cardiopulmonary distress. NEUROLOGICAL: Cranial nerves II-XII grossly intact. Motor is 5/5 in bilateral upper and lower extremities proximal to distal. No sensory deficits. HEENT: Face is symmetric. Pupils are equal and reactive. Extraocular movements are intact. NECK: Supple. No JVD. No thyromegaly. No submental, submandibular, pre- /postauricular, occipital or supraclavicular lymphadenopathy. CHEST: Normal chest expansion. No Telemetry. LUNGS: Absence of any rales, rhonchi or any wheezing. CARDIOVASCULAR: Regular. S1 and S2 normal. No appreciable rubs, murmurs or gallops. ABDOMEN: Soft, nontender, and nondistended. There is no rebound, voluntary guarding, or rigidity. : Deferred. No Best. EXTREMITIES: Non-edematous and not cyanotic. No clubbing. Good capillary refill. Right foot 3rd toe swollen redness discoloration. SKIN: No skin breakdown. Vital Sign (Last 24 Hours) 09/23/24 14:38 Temp 99.3 Pulse 104 Resp 16 B/P (MAP) 125/70 Pulse Ox 99 O2 Delivery Room Air O2 Flow Rate 0 LABS: Laboratory: Test 09/23/24 16:10 Range/Units White Blood Count 15.9 H 4.8-10.8 K/uL Red Blood Count 4.07 4.00-5.50 MIL/uL Hemoglobin 12.6 12.0-16.0 g/dL Hematocrit 37.0 36-48 % Mean Corpuscular Volume 90.9 79-99 fL Mean Corpuscular Hemoglobin 31.0 27.0-33.0 pg Mean Corpuscular Hemoglobin Concent 34.1 32.0-36.0 g/dL Red Cell Distribution Width 12.9 11.0-15.5 % Platelet Count 232 130-400 K/uL Mean Platelet Volume 10.0 7.5-10.5 fL Immature Granulocyte % (Auto) 0.5 0-1 % Neutrophils (%) (Auto) 88.3 H 40.0-77.0 % Lymphocytes (%) (Auto) 5.2 L 21.0-51.0 % Monocytes (%) (Auto) 5.1 3.0-13.0 % Eosinophils (%) (Auto) 0.6 0.0-8.0 % Basophils (%) (Auto) 0.3 0.0-5.0 % Neutrophils # (Auto) 14.0 H 1.8-7.7 K/uL Lymphocytes # (Auto) 0.8 L 1.0-4.8 K/uL Monocytes # (Auto) 0.8 0.1-1.0 K/uL Eosinophils # (Auto) 0.09 0.00-0.70 K/uL Basophils # (Auto) 0.04 0.00-0.20 K/uL Absolute Immature Granulocyte (auto 0.08 0-1 K/uL Nucleated Red Blood Cells 0.0 0.0-0.19 % White Cell Morphology Comment See comments Sodium Level 131 L 136-145 mmol/L Potassium Level 3.8 3.5-5.1 mmol/L Chloride Level 92 L 101-111 mmol/L Carbon Dioxide Level 32 21-32 mmol/L Blood Urea Nitrogen 21 H 7-18 mg/dL Creatinine 0.9 0.5-1.0 mg/dL Glomerular Filtration Rate Calc 74 >90 mL/min Random Glucose 375 H 70-105 mg/dL Total Calcium 9.5 8.5-10.1 mg/dL C-Reactive Protein, Quantitative 173.50 H 0.5-3.0 mg/L Current Medications Medications (Trade) Dose Ordered Sig/David Route PRN Reason Start Time Stop Time Status Last Admin Dose Admin Piperacillin Sod/ Tazobactam Sod (Zosyn 3.375gm+NS 50ml) 3.375 gm Q8H IV 09/23/24 16:30 10/03/24 16:29 Vancomycin HCl (Vancomycin 1g/ 250ml Kit) 1 gm Q12H IV 09/23/24 16:30 10/03/24 16:29 DIAGNOSTICS / RADIOLOGY: [ ] ASSESSMENT: DM right 3rd toe infection with cellulitis:POA Suspecting osteomyelitis POA Leukocytosis POA DM with Hyperglycemia POA Peripheral neuropathy POA PAD POA Medical noncompliance POA PLAN: Admit: Medical-surgical floor condition: Guarded Status: Full code IVF: NS at 75 mL Activity nonweightbearing to right foot Consultants referral and information aide: Dr. Sampson Gates Antibiotics: Zosyn IV vancomycin IV renal dose Test:arterial Doppler, MRI Labs cbc, cmp, mag+ A1c inflammatory markers: CRP and procalcitonin every other day. Replace electrolytes as needed as per protocol to keep potassium above 4.0 magnesium 2.0. A.c. HS monitoring with sliding scale coverage. goal to keep blood sugar < 200 Home medications pending to be reviewed by RN nurse. PRN: MEDICATIONS Tylenol 650 mg po every 4 hrs for fever zofran 4 mg IV every 6 hrs for n/v Hydralazine 5 mg IV every 4 hrs systolic pressure > 160 bowel regiment: lactulose 20 gm PO BID PRN constipation fall precaution: call light in reach Pain management: Tylenol No. 3 as needed as directed Supportive measures: DVT ppx, GI ppx all questions answered time spent: > 35 min Supervising MD: Dr. Smith c/d This document was generated in part using voice recognition software, occasional wrong word or sound alike substitutions may have occurred due to the inherent limitations of voice recognition software. Read the chart carefully and recognize using context, where the substitutions have occurred. Although every effort was made to edit the content, defect cutter and typing errors may occur ADVANCED CARE PLANNING 1. Which of the following were discussed? Hospice Care - Yes / No Therapeutic options - Yes / No Advance Directives - Yes / No Other discussions - 2. Discussed with who? 3. Voluntary nature of this service was explained to the patient? Yes / No 4. Amount of time spent - 5. Reviewed by Physician? (if this service was performed by NPP) Yes / No ATTESTATION BY PHYSICIAN I have seen and examined the patient. I reviewed the documentation, medical decision making, and treatment plan as noted by the mid-level provider above. I agree with the findings and plan of care. CANDICE SMITH MD, ELIZABETH NP Sep 23, 2024 17:01
[2024-09-23 17:23] LABS: ERYTHROCYTE SEDIMENTATION RATE 95 MM/HR (0-30)
[2024-09-23] MEDS: PHARMACY COMMUNICATION MISC SCH (17:30)
[2024-09-23] MEDS: 0.9%NACL 1000ML 1,000 ML IV SCH (19:31)
[2024-09-23] MEDS ORDERED: GABA-529 PO (19:41)
[2024-09-23] MEDS ORDERED: ASPI-1443 PO (19:41)
[2024-09-23] MEDS ORDERED: LISI20TA24 PO (19:41)
[2024-09-23] MEDS ORDERED: FLUO20TA29 PO (19:41)
[2024-09-23] MEDS ORDERED: INSU3INS5 SQ (19:41)
[2024-09-23] MEDS ORDERED: GLIP5TAB15 PO (19:41)
[2024-09-23] MEDS ORDERED: ATOR-2 PO (19:41)
[2024-09-23] MEDS ORDERED: KOMBIGLYZE XR PO (19:41)
--- NOTE | 2024-09-23 20:17 | HMCIMG ---
ULTRASOUND ARTERIAL DUPLEX LOWER EXTREMITY, BILATERAL INDICATION: Infected foot diabetes mellitus TECHNIQUE: Routine grayscale, color Doppler, and power Doppler ultrasound of the bilateral lower extremity arteries were obtained. COMPARISON: None FINDINGS: Velocities in cm/sec. RIGHT: TAR WORKER: 139 SFA: Prox 209, Mid 192, Distal 187 Popliteal: 205 proximally and 175 distally Anterior Tibial: 140 distally Posterior tibial: 128 Dorsalis Pedis: Higher 23 Triphasic flow along the right lower extremity arterial system except for biphasic along the right posterior tibial artery and monophasic along the distal right anterior tibial artery as well as right dorsalis pedis artery. LEFT: TAR WORKER: 106 SFA: Prox 171, Mid 141, Distal 160 Popliteal: 118 proximally and 181 distally Anterior Tibial: 82 distally Posterior Tibial: 117 Dorsalis Pedis: 109 Triphasic flow along the left lower extremity arterial system except for monophasic along the distal left anterior tibial artery as well as along the left dorsalis pedis artery. Extensive calcific plaque along both lower extremity arterial system [place]. IMPRESSION: 50-80% stenosis along the proximal right SFA and proximal right popliteal artery. Monophasic flow along the bilateral distal anterior tibial arteries as well as along the bilateral dorsalis pedis arteries. Parameters as reported.
[2024-09-23] MEDS: INSULIN humuLIN R 100 UNIT/ML 3ML SQ SCH (20:34)
[2024-09-23 21:50] VITALS: BP 162/94; PULSE 104; RESP 16; TEMP 98.9
[2024-09-23 23:07] VITALS: O2SAT 96
[2024-09-24] VITALS (8 sets, daily range): BP systolic 132–161; BP diastolic 58–85; PULSE 83–99; RESP 16–19; TEMP 98.1–98.9; O2SAT 96
[2024-09-24 06:47] LABS: BASOPHILS # (AUTO) 0.03 K/uL (0.00-0.20); BASOPHILS % (AUTO) 0.2 % (0.0-5.0); EOSINOPHILS # (AUTO) 0.03 K/uL (0.00-0.70); EOSINOPHILS % (AUTO) 0.2 % (0.0-8.0); HEMATOCRIT 35.2 % (36-48); IMMATURE GRANULOCYTE ABSOLUTE 0.08 K/uL (0-1); LYMPHOCYTES # (AUTO) 0.9 K/uL (1.0-4.8); MEAN CORPUSCULAR HEMOGLOBIN 30.4 pg (27.0-33.0); MEAN CORPUSCULAR HGB CONC 33.8 g/dL (32.0-36.0); MONOCYTES # (AUTO) 0.7 K/uL (0.1-1.0); MONOCYTES % (AUTO) 5.7 % (3.0-13.0); NEUTROPHILS # (AUTO) 10.8 K/uL (1.8-7.7); NEUTROPHILS % (AUTO) 86.3 % (40.0-77.0); PLATELET COUNT (AUTO) 225 K/uL (130-400); RED BLOOD CELL COUNT(AUTO) 3.91 MIL/uL (4.00-5.50); RED CELL DISTRIBUTION WIDTH 12.9 % (11.0-15.5); WHITE BLOOD COUNT (AUTO) 12.6 K/uL (4.8-10.8)
[2024-09-24 07:03] LABS: ALBUMIN 2.7 g/dL (3.5-5.0); BILIRUBIN,TOTAL 0.5 mg/dL (0.2-1.0); CREATININE 0.6 mg/dL (0.5-1.0); MAGNESIUM 1.7 mg/dL (1.80-2.40); TOTAL PROTEIN, SERUM 7.5 g/dL (6.0-8.3)
--- NOTE | 2024-09-24 10:37 | PN ---
[facility] PROGRESS NOTE Date of Service: Sep 24, 2024 Time of Service: 10:33 SUBJECTIVE: This is a 59-year-old presented in ED with concern of her right 3rd toe swelling and redness and decided to come to ED for further evaluation. Onset for several days. Patient reported no injury to foot. Patient reported she has peripheral neuropathy. Noted cellulitis and discoloration of 3rd toe no drainage. She denied fever chills. Patient admitted to the medical floor for further evaluation and medical management. X-ray of the right foot was done, no evidence for fracture or subluxation. Arterial Doppler done, 50-80% stenosis of the proximal right SFA and proximal right popliteal artery, monophasic flow of the bilateral distal anterior tibial arteries as well as along the bilateral dorsalis pedis. Patient remains hemodynamically stable, afebrile, saturating normal on room air, WBC trending down 12.6. Magnesium 1.7. Patient is currently getting IV antibiotics during my visit. REVIEW OF SYSTEMS a 14 point ROS obtained all relevant positive documented otherwise ROS negative PHYSICAL EXAM GENERAL APPEARANCE: The patient is awake, alert, and oriented, in no acute cardiopulmonary distress. NEUROLOGICAL: Cranial nerves II-XII grossly intact. Motor is 5/5 in bilateral upper and lower extremities proximal to distal. No sensory deficits. HEENT: Face is symmetric. Pupils are equal and reactive. Extraocular movements are intact. NECK: Supple. No JVD. No thyromegaly. No submental, submandibular, pre- /postauricular, occipital or supraclavicular lymphadenopathy. CHEST: Normal chest expansion. No Telemetry. LUNGS: Absence of any rales, rhonchi or any wheezing. CARDIOVASCULAR: Regular. S1 and S2 normal. No appreciable rubs, murmurs or gallops. ABDOMEN: Soft, nontender, and nondistended. There is no rebound, voluntary guarding, or rigidity. : Deferred. No Best. EXTREMITIES: Non-edematous and not cyanotic. No clubbing. Good capillary refill. Right foot 3rd toe swollen erythematous. Amputation to the right great toe. Palpable pedal pulses. SKIN: No skin breakdown. Vital Signs (last 8hr) Date Time Temp Pulse Resp B/P (MAP) Pulse Ox O2 Delivery O2 Flow Rate FiO2 09/24/24 07:55 98.1 89 18 134/59 98 Room Air 09/24/24 03:48 98.8 83 16 147/85 95 Room Air LABS: Laboratory: Test 09/24/24 06:25 09/24/24 05:17 09/23/24 16:10 Range/Units White Blood Count 12.6 H 4.8-10.8 K/uL Red Blood Count 3.91 L 4.00-5.50 MIL/uL Hemoglobin 11.9 L 12.0-16.0 g/dL Hematocrit 35.2 L 36-48 % Mean Corpuscular Volume 90.0 79-99 fL Mean Corpuscular Hemoglobin 30.4 27.0-33.0 pg Mean Corpuscular Hemoglobin Concent 33.8 32.0-36.0 g/dL Red Cell Distribution Width 12.9 11.0-15.5 % Platelet Count 225 130-400 K/uL Mean Platelet Volume 9.9 7.5-10.5 fL Immature Granulocyte % (Auto) 0.6 0-1 % Neutrophils (%) (Auto) 86.3 H 40.0-77.0 % Lymphocytes (%) (Auto) 7.0 L 21.0-51.0 % Monocytes (%) (Auto) 5.7 3.0-13.0 % Eosinophils (%) (Auto) 0.2 0.0-8.0 % Basophils (%) (Auto) 0.2 0.0-5.0 % Neutrophils # (Auto) 10.8 H 1.8-7.7 K/uL Lymphocytes # (Auto) 0.9 L 1.0-4.8 K/uL Monocytes # (Auto) 0.7 0.1-1.0 K/uL Eosinophils # (Auto) 0.03 0.00-0.70 K/uL Basophils # (Auto) 0.03 0.00-0.20 K/uL Absolute Immature Granulocyte (auto 0.08 0-1 K/uL Nucleated Red Blood Cells 0.0 0.0-0.19 % Sodium Level 142 136-145 mmol/L Potassium Level 5.0 3.5-5.1 mmol/L Chloride Level 105 101-111 mmol/L Carbon Dioxide Level 31 21-32 mmol/L Blood Urea Nitrogen 17 7-18 mg/dL Creatinine 0.6 0.5-1.0 mg/dL Glomerular Filtration Rate Calc 104 >90 mL/min Random Glucose 235 H 70-105 mg/dL Hemoglobin A1c 13.0 H 4.0-6.0 % Estimated Average Glucose (eAG) 326 H 70-126 mg/dL Total Calcium 9.0 8.5-10.1 mg/dL Magnesium Level 1.70 L 1.80-2.40 mg/dL Total Bilirubin 0.5 0.2-1.0 mg/dL Aspartate Amino Transf (AST/SGOT) 12 10-37 U/L Alanine Aminotransferase (ALT/SGPT) 11 L 12-78 U/L Alkaline Phosphatase 92 50-136 U/L Total Protein 7.5 6.0-8.3 g/dL Albumin 2.7 L 3.5-5.0 g/dL Triglycerides Level 36 30-200 mg/dL Cholesterol Level 221 H <200 mg/dL LDL Cholesterol 97 0-99 mg/dL HDL Cholesterol 105 H 35-85 mg/dL Whole Blood Glucose 219 #H 70-110 MG/DL White Cell Morphology Comment See comments Erythrocyte Sedimentation Rate 95 H 0-30 MM/HR C-Reactive Protein, Quantitative 173.50 H 0.5-3.0 mg/L Current Medications Medications (Trade) Dose Ordered Sig/David Route PRN Reason Start Time Stop Time Status Last Admin Dose Admin Acetaminophen (TYLenol 325MG TAB) 650 mg Q4H PRN PO TEMPERATURE GREATER THAN 101.5 09/23/24 17:00 10/23/24 16:59 Acetaminophen/ Codeine Phosphate (TYLenol-coDEINE TAB) 1 tab Q4H PRN PO MODERATE PAIN (4-6) 09/23/24 17:00 10/23/24 16:59 Hydralazine HCl (APRESOLine 20MG INJ) 5 mg Q4H PRN IV ADMINISTER FOR SBP > 160 09/23/24 17:00 10/23/24 16:59 Insulin Human Regular (humuLIN R 100 UNIT/ML 3ML) INSULIN SLIDING SCAL... ACHS SQ 09/23/24 21:00 10/23/24 20:59 09/24/24 06:40 6 UNIT Lactulose (Constulose 20gm/ 30ml Udcup) 20 gm BID PRN PO CONSTIPATION 09/23/24 17:00 10/23/24 16:59 Magnesium Sulfate 50 ml @ 0 mls/hr PROTOCOL PRN IV low mag level 09/23/24 17:00 10/23/24 16:59 Ondansetron HCl (zoFRAN 4MG INJ) 4 mg Q6H PRN IVP NAUSEA/VOMITING 09/23/24 17:00 10/23/24 16:59 Pharmacy Profile Note (Pharmacy Communication) 1 each ONCE MISC 09/23/24 17:30 09/24/24 07:32 DC Piperacillin Sod/ Tazobactam Sod (Zosyn 3.375gm+NS 50ml) 3.375 gm Q8H IV 09/23/24 16:30 10/03/24 16:29 09/24/24 09:29 3.375 GM Potassium Chloride 100 ml @ 100 mls/hr AD PRN IV POTASSIUM PROTOCOL 09/23/24 17:00 10/23/24 16:59 Potassium Chloride (K-Dur/Klor-Con 20meq) 20 meq AD PRN PO POTASSIUM PROTOCOL 09/23/24 17:00 10/23/24 16:59 Potassium Chloride (KCl 10% Elixir 20meq/15ml) 20 meq AD PRN PO POTASSIUM PROTOCOL 09/23/24 17:00 10/23/24 16:59 Sodium Chloride 1,000 ml @ 75 mls/hr [id number] IV 09/23/24 17:00 10/23/24 16:59 09/24/24 09:32 75 MLS/HR Vancomycin HCl (Vancomycin 1g/ 250ml Kit) 1 gm Q12H IV 09/23/24 16:30 10/03/24 16:29 09/24/24 03:52 1 GM DIAGNOSTICS / RADIOLOGY: [ ] ULTRASOUND ARTERIAL DUPLEX LOWER EXTREMITY, BILATERAL INDICATION: Infected foot diabetes mellitus TECHNIQUE: Routine grayscale, color Doppler, and power Doppler ultrasound of the bilateral lower extremity arteries were obtained. COMPARISON: None FINDINGS: Velocities in cm/sec. RIGHT: SYSTEMS INTEGRATION ADVISOR: 139 SFA: Prox 209, Mid 192, Distal 187 Popliteal: 205 proximally and 175 distally Anterior Tibial: 140 distally Posterior tibial: 128 Dorsalis Pedis: Higher 23 Triphasic flow along the right lower extremity arterial system except for biphasic along the right posterior tibial artery and monophasic along the distal right anterior tibial artery as well as right dorsalis pedis artery. LEFT: SYSTEMS INTEGRATION ADVISOR: 106 SFA: Prox 171, Mid 141, Distal 160 Popliteal: 118 proximally and 181 distally Anterior Tibial: 82 distally Posterior Tibial: 117 Dorsalis Pedis: 109 Triphasic flow along the left lower extremity arterial system except for monophasic along the distal left anterior tibial artery as well as along the left dorsalis pedis artery. Extensive calcific plaque along both lower extremity arterial system [place]. IMPRESSION: 50-80% stenosis along the proximal right SFA and proximal right popliteal artery. Monophasic flow along the bilateral distal anterior tibial arteries as well as along the bilateral dorsalis pedis arteries. Parameters as reported. ASSESSMENT: DM right 3rd toe infection with cellulitis:POA Suspecting osteomyelitis POA Leukocytosis POA DM with Hyperglycemia POA Peripheral neuropathy POA PAD with 50-80% stenosis proximal right SFA and proximal right popliteal artery POA Medical noncompliance POA PLAN: Patient remains admitted to the medical floor Continue the patient on broad-spectrum IV antibiotics Results of arterial Doppler reviewed, discussed with the patient, 50-80% stenosis proximal right SFA and proximal right popliteal artery, we will place the patient on Lovenox and aspirin, we will request Cardiovascular consultation. Follow podiatry input and recommendation. NEURO: Minimize central acting medications as possible. Fall Precautions. Well lighted room through the day and minimize interruptions through the night to prevent acute delirium. PULMONARY: Supplemental 02 as needed BiPAP as necessary, for respiratory distress Titrate Fio2 to keep Spo2 > or = 90% DuoNebs and CPT as needed IS hourly while awake for pulmonary hygiene prn Out of bed to chair as tolerated Maintain aspiration precautions at all times CARDIOVASCULAR: Follow hemodynamics. Vital signs per facility protocol GI & NUTRITION: Continue nutritional support Aspirations precautions Prokinetic agents and laxatives as needed KIDNEYS & ELECTROLYTES: Strict monitoring of intake and output Daily weights Avoid nephrotoxic agents Monitor electrolytes and replace as needed Goal urine output of 30mL/hr or 0.5mL/kg/hr Medications to be dosed according to renal function. Avoid contrast if possible ENDOCRINE: Maintain blood glucose between 100-180 at all times. Insulin sliding scale for blood glucose management Hypoglycemia and hyperglycemia protocol in place INFECTIOUS DISEASE: Trend temperature, WBC and procalcitonin level Follow cultures, deescalate antibiotics as soon as possible. Panculture if new onset fever HEMATOLOGY & COAGULATION: Monitor H&H. Keep Hgb > 7 Transfuse 1 unit of PRBC for Hgb < 7 Transfuse 1 pack of platelets of platelets < 20, 000 Watch for any signs and symptoms of bleeding SKIN: Pressure ulcer prevention per facility protocol Specialty mattress as needed ORTHO/REHAB Continue PT/OT PRN: MEDICATIONS Tylenol 650 mg po every 4 hrs for fever zofran 4 mg IV every 6 hrs for n/v Hydralazine 5 mg IV every 4 hrs systolic pressure > 160 bowel regiment: lactulose 20 gm PO BID PRN constipation Supportive measures: Continue GI and DVT prophylaxis Disposition: Pending improvement in clinical condition All questions answered time spent: > 35 min CANDICE LAZAR MD Sep 24, 2024 10:36
[2024-09-24] MEDS: ENOXAPARIN SODIUM 40 MG/0.4 ML SYRINGE SQ ONE (11:58)
--- NOTE | 2024-09-24 12:42 | NUR ---
Family request / CM Call from son Geoffrey Small regarding request for "[place]" to [facility] to allow for visit. Notified case management to follow up with son regarding release requirements/ information. Addendum: 09/24/24 at 1517 by CARLOS WHITE RN RN Case #[id number] Call back
[2024-09-24] MEDS: MAGNESIUM 2GM PREMIX 50ML 50 ML IV SCH (13:43)
[2024-09-24] MEDS: GABApentin 100 MG CAPSULE PO SCH (13:45)
--- NOTE | 2024-09-24 15:22 | CONS ---
[facility] C[facility] CONSULTATION NOTE Date Patient Seen: Sep 24, 2024 Time of Visit: 15:19 Requesting Physician: Hospitalist Dr. Smith Reason for Consultation: PAD, cellulitis History of Present Illness: Patient is a 59-year-old female with past medical history of hypertension, prior small stroke, type 2 diabetes mellitus, peripheral neuropathy, osteomyelitis to the right hallux status post amputation in 2020, who presented with right lower extremity 3rd toe swelling, redness, diagnosed with cellulitis. There is a prior to a duplex from November of 2020 showing [id number] arterial inflow occlusion on the right at the trifurcation level, monophasic waveforms in the anterior tibial and dorsalis pedis arteries, with no significant stenosis on the left. This admission, there is a repeat arterial duplex which suggests 50-80% stenosis along the proximal right SFA and proximal right popliteal artery with monophasic waveforms of the bilateral distal GILL and DPA. Toe x-ray negative for fracture or subluxation. An MRI is pending. Patient is on 81 mg daily aspirin, high-intensity atorvastatin 80 mg daily (home medication rosuvastatin 40 mg daily of which he is compliant), broad-spectrum antibiotics of vancomycin and Zosyn. Her creatinine is normal at 0.6. Hemoglobin A1c 13%. Total cholesterol 221, triglycerides 36, LDL 97, HDL 105. Past Medical History: hypertension, type 2 diabetes mellitus, peripheral neuropathy, osteomyelitis to the right hallux status post amputation in 2020, history of small stroke Past Surgical History: Right hallux amputation in 2020 for osteomyelitis Family History: No coronary artery disease, cerebrovascular disease or peripheral arterial disease reported Social History: No significant EtOH. Nonsmoker. Current Meds: Current Medications Medications Dose Ordered Sig/David Start Time Stop Time Status Last Admin Piperacillin Sod/ Tazobactam Sod 3.375 gm Q8H 09/23/24 16:30 10/03/24 16:29 09/24/24 09:29 Vancomycin HCl 1 gm Q12H 09/23/24 16:30 10/03/24 16:29 09/24/24 03:52 Acetaminophen 650 mg Q4H PRN 09/23/24 17:00 10/23/24 16:59 Ondansetron HCl 4 mg Q6H PRN 09/23/24 17:00 10/23/24 16:59 Hydralazine HCl 5 mg Q4H PRN 09/23/24 17:00 10/23/24 16:59 Lactulose 20 gm BID PRN 09/23/24 17:00 10/23/24 16:59 Insulin Human Regular INSULIN SLIDING SCAL... ACHS 09/23/24 21:00 10/23/24 20:59 09/24/24 11:57 Potassium Chloride 100 ml @ 100 mls/hr AD PRN 09/23/24 17:00 10/23/24 16:59 Potassium Chloride 20 meq AD PRN 09/23/24 17:00 10/23/24 16:59 Potassium Chloride 20 meq AD PRN 09/23/24 17:00 10/23/24 16:59 Acetaminophen/ Codeine Phosphate 1 tab Q4H PRN 09/23/24 17:00 10/23/24 16:59 Sodium Chloride 1,000 ml @ 75 mls/hr [id number] 09/23/24 17:00 10/23/24 16:59 09/24/24 09:32 Magnesium Sulfate 50 ml @ 0 mls/hr PROTOCOL 09/24/24 11:00 10/24/24 10:59 09/24/24 13:43 Gabapentin 100 mg TID 09/24/24 14:00 10/24/24 13:59 09/24/24 13:45 Glipizide 5 mg DAILY 09/25/24 09:00 10/25/24 08:59 Lisinopril 20 mg DAILY 09/25/24 09:00 10/25/24 08:59 Atorvastatin Calcium 80 mg DAILY 09/25/24 09:00 10/25/24 08:59 Fluoxetine HCl 20 mg DAILY 09/25/24 09:00 10/25/24 08:59 Insulin Human Isoph/Insulin Regular 40 unit BIDAC 09/24/24 16:30 10/24/24 16:29 Enoxaparin Sodium 40 mg DAILY 09/25/24 09:00 10/25/24 08:59 Aspirin 81 mg DAILY 09/25/24 09:00 10/25/24 08:59 Bacitracin 1 PATRICK AD DAILY 09/25/24 09:00 10/25/24 08:59 Review of Systems: right lower extremity redness, pain, swelling, chronic numbness to the bilateral lower extremities to the level of the ankle Physical Examination: GENERAL: [No acute distress.] HEAD: [Normal with no signs of head trauma.] EYES: [PERRLA, EOMI, conjunctiva and sclera normal.] ENT: [Hearing grossly intact, normal oropharynx.] NECK: Normal carotid upstrokes without bruits.] LUNGS: [Clear breath sounds bilaterally. On room air. No wheezes, or rhonchi.] HEART: [Normal rate and rhythm. 2/6 systolic murmur at left upper sternal border VASC: [Peripheral pulses +2 bilaterally. at the DP, PT and radial ABD: [Soft, nontender.] EXT: [Nonpitting edema of the right 3rd toe. Status post scraping of the distal aspect. She is status post right hallux amputation, incision site healed well. NEURO: [Awake, alert, and oriented x3. decreased sensation to light touch of the bilateral feet extending to the level of the ankle, equivocal] Vital Signs (last 8hr) Date Time Temp Pulse Resp B/P (MAP) Pulse Ox O2 Delivery O2 Flow Rate FiO2 09/24/24 11:27 98.1 96 18 161/81 94 Room Air 09/24/24 08:55 96 Room Air* 0 21 09/24/24 07:55 98.1 89 18 134/59 98 Room Air Laboratory: [ ] Hematology Labs: Test 09/24/24 06:25 09/23/24 16:10 Range/Units White Blood Count 12.6 H 4.8-10.8 K/uL Red Blood Count 3.91 L 4.00-5.50 MIL/uL Hemoglobin 11.9 L 12.0-16.0 g/dL Hematocrit 35.2 L 36-48 % Mean Corpuscular Volume 90.0 79-99 fL Mean Corpuscular Hemoglobin 30.4 27.0-33.0 pg Mean Corpuscular Hemoglobin Concent 33.8 32.0-36.0 g/dL Red Cell Distribution Width 12.9 11.0-15.5 % Platelet Count 225 130-400 K/uL Mean Platelet Volume 9.9 7.5-10.5 fL Immature Granulocyte % (Auto) 0.6 0-1 % Neutrophils (%) (Auto) 86.3 H 40.0-77.0 % Lymphocytes (%) (Auto) 7.0 L 21.0-51.0 % Monocytes (%) (Auto) 5.7 3.0-13.0 % Eosinophils (%) (Auto) 0.2 0.0-8.0 % Basophils (%) (Auto) 0.2 0.0-5.0 % Neutrophils # (Auto) 10.8 H 1.8-7.7 K/uL Lymphocytes # (Auto) 0.9 L 1.0-4.8 K/uL Monocytes # (Auto) 0.7 0.1-1.0 K/uL Eosinophils # (Auto) 0.03 0.00-0.70 K/uL Basophils # (Auto) 0.03 0.00-0.20 K/uL Absolute Immature Granulocyte (auto 0.08 0-1 K/uL Nucleated Red Blood Cells 0.0 0.0-0.19 % White Cell Morphology Comment See comments Erythrocyte Sedimentation Rate 95 H 0-30 MM/HR Chemistry Labs: Test 09/24/24 11:02 09/24/24 06:25 09/23/24 16:10 Range/Units Whole Blood Glucose 235 H 70-110 MG/DL Sodium Level 142 136-145 mmol/L Potassium Level 5.0 3.5-5.1 mmol/L Chloride Level 105 101-111 mmol/L Carbon Dioxide Level 31 21-32 mmol/L Blood Urea Nitrogen 17 7-18 mg/dL Creatinine 0.6 0.5-1.0 mg/dL Glomerular Filtration Rate Calc 104 >90 mL/min Random Glucose 235 H 70-105 mg/dL Hemoglobin A1c 13.0 H 4.0-6.0 % Estimated Average Glucose (eAG) 326 H 70-126 mg/dL Total Calcium 9.0 8.5-10.1 mg/dL Magnesium Level 1.70 L 1.80-2.40 mg/dL Total Bilirubin 0.5 0.2-1.0 mg/dL Aspartate Amino Transf (AST/SGOT) 12 10-37 U/L Alanine Aminotransferase (ALT/SGPT) 11 L 12-78 U/L Alkaline Phosphatase 92 50-136 U/L Total Protein 7.5 6.0-8.3 g/dL Albumin 2.7 L 3.5-5.0 g/dL Triglycerides Level 36 30-200 mg/dL Cholesterol Level 221 H <200 mg/dL LDL Cholesterol 97 0-99 mg/dL HDL Cholesterol 105 H 35-85 mg/dL C-Reactive Protein, Quantitative 173.50 H 0.5-3.0 mg/L Assessment: Right lower extremity cellulitis Peripheral arterial disease with history of osteomyelitis of the right hallux status post amputation in 2020 Type 2 diabetes mellitus with peripheral neuropathy, peripheral angiopathy, hyperglycemia Dyslipidemia Hypertension, uncontrolled Plan: We will continue the patient's started daily aspirin. Continue high-intensity statin. We will add P2Y12 inhibitor [id number] mg 1 tablet daily We will await the results of the MRI. If osteomyelitis confirmed, may need to consider invasive angiography versus CTA runoff study, however she does have bounding palpable pulses at the dorsalis pedis and posterior tibialis. BEATRIZ PERKINS DO Sep 24, 2024 15:21
--- NOTE | 2024-09-24 15:36 | CONS ---
CONSULTATION NOTE Date of Service: Sep 24, 2024 Reason for Consultation: This 59 years old female was seen in consultation for evaluation of cellulitis and abscess 3rd toe right foot patient has a history of amputation of the hallux right foot history of diabetes poor control. Requesting Physician: Dr. Smith HISTORY OF PRESENT ILLNESS: History of uncontrolled diabetes history of amputation of hallux developed cellulitis to the 3rd toe on the right foot patient on does not know the cause of the cellulitis has been present for two weeks. At this moment the patient decided to present to the emergency room due to the cellulitis and infection progressing. REVIEW OF SYSTEMS CONSTITUTIONAL: Denies fever, chills, or fatigue. HEAD/FACE: No signs of trauma. EENT: Denies eye pain, blurred vision, double vision, or light sensitivity. RESPIRATORY: Denies shortness of breath, cough, wheezing CARDIOVASCULAR: Denies chest pain, palpitation, syncope GASTROINTESTINAL/ABDOMINAL: Denies abdominal pain, constipation, diarrhea, nausea or vomiting GENITOURINARY: Denies dysuria or hematuria. MUSCULOSKELETAL: Denies joint pain, tenderness, or trauma. INTEGUMENTARY: Abscess formation periungual on the 3rd toe right foot. NEUROLOGICAL/PSYCH: Denies anxiety, depression, heat or cold intolerance. PAST MEDICAL HISTORY: Uncontrolled diabetes PAST SURGICAL HISTORY: Amputation of hallux right PAST SOCIAL HISTORY: Denies any drinking or illicit drugs Denies any smoking FAMILY HISTORY: Good family support Coded Allergies: No Known Allergies (Unverified Allergy, Unknown, 12/04/20) PHYSICAL EXAM EYES: Anicteric. Pupils equal and reactive. HENT: No oral thrush seen, moist Oral mucosa NECK: Supple, no JVD or thyromegaly. LUNGS: Good air entry. No rales, no rhonchi. CARDIOVASCULAR: S1, S2 regular. No murmur heard. ABDOMEN: Soft, non tender, bowel sounds present, no organomegaly CENTRAL NERVOUS SYSTEM: Awake, alert, oriented x 3. No focal deficits. SKIN: Swelling pus blister formation periungual area of 3rd toe right foot and distal aspect of the 3rd toe right foot LYMPHATICS: No peripheral lymphadenopathy MUSCULOSKELETAL: No joint swelling, erythema or tenderness. EXTREMITIES: No cyanosis or clubbing BACK: No deformity, no pressure ulcer. GENITOURINARY: No dysuria or hematuria Vital Sign (Last 24 Hours) 09/24/24 09/24/24 08:55 11:27 Temp 98.1 Pulse 96 Resp 18 B/P (MAP) 161/81 Pulse Ox 94 O2 Delivery Room Air O2 Flow Rate 0 FiO2 21 LABS: Laboratory: Test 09/24/24 11:02 09/24/24 06:25 09/23/24 16:10 Range/Units Whole Blood Glucose 235 H 70-110 MG/DL White Blood Count 12.6 H 4.8-10.8 K/uL Red Blood Count 3.91 L 4.00-5.50 MIL/uL Hemoglobin 11.9 L 12.0-16.0 g/dL Hematocrit 35.2 L 36-48 % Mean Corpuscular Volume 90.0 79-99 fL Mean Corpuscular Hemoglobin 30.4 27.0-33.0 pg Mean Corpuscular Hemoglobin Concent 33.8 32.0-36.0 g/dL Red Cell Distribution Width 12.9 11.0-15.5 % Platelet Count 225 130-400 K/uL Mean Platelet Volume 9.9 7.5-10.5 fL Immature Granulocyte % (Auto) 0.6 0-1 % Neutrophils (%) (Auto) 86.3 H 40.0-77.0 % Lymphocytes (%) (Auto) 7.0 L 21.0-51.0 % Monocytes (%) (Auto) 5.7 3.0-13.0 % Eosinophils (%) (Auto) 0.2 0.0-8.0 % Basophils (%) (Auto) 0.2 0.0-5.0 % Neutrophils # (Auto) 10.8 H 1.8-7.7 K/uL Lymphocytes # (Auto) 0.9 L 1.0-4.8 K/uL Monocytes # (Auto) 0.7 0.1-1.0 K/uL Eosinophils # (Auto) 0.03 0.00-0.70 K/uL Basophils # (Auto) 0.03 0.00-0.20 K/uL Absolute Immature Granulocyte (auto 0.08 0-1 K/uL Nucleated Red Blood Cells 0.0 0.0-0.19 % Sodium Level 142 136-145 mmol/L Potassium Level 5.0 3.5-5.1 mmol/L Chloride Level 105 101-111 mmol/L Carbon Dioxide Level 31 21-32 mmol/L Blood Urea Nitrogen 17 7-18 mg/dL Creatinine 0.6 0.5-1.0 mg/dL Glomerular Filtration Rate Calc 104 >90 mL/min Random Glucose 235 H 70-105 mg/dL Hemoglobin A1c 13.0 H 4.0-6.0 % Estimated Average Glucose (eAG) 326 H 70-126 mg/dL Total Calcium 9.0 8.5-10.1 mg/dL Magnesium Level 1.70 L 1.80-2.40 mg/dL Total Bilirubin 0.5 0.2-1.0 mg/dL Aspartate Amino Transf (AST/SGOT) 12 10-37 U/L Alanine Aminotransferase (ALT/SGPT) 11 L 12-78 U/L Alkaline Phosphatase 92 50-136 U/L Total Protein 7.5 6.0-8.3 g/dL Albumin 2.7 L 3.5-5.0 g/dL Triglycerides Level 36 30-200 mg/dL Cholesterol Level 221 H <200 mg/dL LDL Cholesterol 97 0-99 mg/dL HDL Cholesterol 105 H 35-85 mg/dL White Cell Morphology Comment See comments Erythrocyte Sedimentation Rate 95 H 0-30 MM/HR C-Reactive Protein, Quantitative 173.50 H 0.5-3.0 mg/L DIAGNOSTICS / RADIOLOGY: [ ] ASSESSMENT: Abscess cellulitis 3rd toe right foot diabetic foot infection PLAN: Incision and drainage at bedside no anesthesia needed due to diabetic polyneuropathy blister drained utilizing sharp instrumentation application of triple antibiotic ointment and dressing continue local wound care done in the stay in the hospital continue antibiotics order cultures and sensitivity. We will follow up as an outpatient was the patient discharged from the hospital. ALIE GOOD DPM Sep 24, 2024 15:36
[2024-09-24] MEDS ORDERED: ROSU40TA88 PO (15:42)
[2024-09-24] MEDS: BACITRACIN 28.4 GM OINT TP ONE (16:00)
--- NOTE | 2024-09-24 17:11 | NUR ---
INITIAL/DCP HOME Met w pt and family this afternoon to discuss dcp. EC is son Addison Small [phone]. Pt attends [facility] for her medical needs. She lives at home w her son Sawyer Small. She uses a cane for ambulation. She requires assist for ADLs. Her exhusband assists her as needed at home. Her preferred pharmacy is [facility]. Pt mentions that she lost her [employer] coverage but her dtr is looking to enroll her. discharge goal is to return home. Addendum: 09/24/24 at 1714 by MONY PINEDA CM Amended: Links added.
[2024-09-24] MEDS: acetaMINOPHEN 325 MG TAB PO PRN (22:55)
[2024-09-25] VITALS (8 sets, daily range): BP systolic 127–154; BP diastolic 49–83; PULSE 68–99; RESP 16–20; TEMP 97.4–101.5; O2SAT 97–100
--- NOTE | 2024-09-25 01:30 | NUR ---
HYPOGLYCEMIA PATIENT IS COLD AND CLAMMY GLUCOSE CHECK 60, GAVE ORANGE JUICE AND SANDWICH. 0207 GLUCOSE RECHECK 90, PATIENT IS FEELING BETTER RESTING COMFORTABLY CALL LIGHT IN REACH BED IN LOW POSITION SIDE RAILS UP X2.
--- NOTE | 2024-09-25 03:50 | NUR ---
HYPOTHERMIA DAVON PERSONNEL MONITOR BROUGHT IT TO MY ATTENTION SHE IS NOT ABLE TO GET A TEMP GREATER THAN 93.4 ORAL OR AXILLARY ON PATIENT. MADE BRITANY CHARGE NURSE AWARE. PATIENT IS COLD AND SHIVERING AT THIS TIME TEMPERATURE RECHECKED ORALLY, AXILLARY AND RECTALLY 93.4. MADE ALAN LOMBARDO AWARE RECEIVED ORDER FOR BEAR HUGGER, ORDER CARRIED OUT BEAR HUGGER IN PLACE. 0500 TEMPERATURE RECHECKED ORALLY 97.4, PATIENT RESTING COMFORTABLY WILL CONTINUE TO MONITOR.
--- NOTE | 2024-09-25 03:59 | NUR ---
[id number] paged hospitalist it security consultant pending call back from Dahiana Denise NP [id number] received call back from Dahiana LOMBARDO made aware patient is hypothermic(axillary, oral, and rectal temp; 93.4), N/O chapo anthony.
[2024-09-25 04:06] LABS: HEMATOCRIT 35.6 % (36-48); MEAN CORPUSCULAR HEMOGLOBIN 30.7 pg (27.0-33.0); MEAN CORPUSCULAR HGB CONC 33.4 g/dL (32.0-36.0); MEAN CORPUSCULAR VOLUME 91.8 fL (79-99); RED BLOOD CELL COUNT(AUTO) 3.88 MIL/uL (4.00-5.50); RED CELL DISTRIBUTION WIDTH 13.2 % (11.0-15.5); WHITE BLOOD COUNT (AUTO) 10.1 K/uL (4.8-10.8)
[2024-09-25 04:25] LABS: ALBUMIN 2.6 g/dL (3.5-5.0); BILIRUBIN,TOTAL 0.3 mg/dL (0.2-1.0); CREATININE 0.7 mg/dL (0.5-1.0); MAGNESIUM 2.1 mg/dL (1.80-2.40); POTASSIUM 4.3 mmol/L (3.5-5.1); TOTAL PROTEIN, SERUM 7.5 g/dL (6.0-8.3)
--- NOTE | 2024-09-25 06:15 | NUR ---
INSULIN SCHEDULED INSULIN NOT ADMINISTERED DUE TO PATIENT SENSITIVE TO INSULIN, ON 09/24 @ 1999 GLUCOSE WAS 254, ADMINISTERED 10 UNITS OF R INSULIN PER SLIDING SCALE AND PATIENTS GLUCOSE DROPPED TO 60 @ 0137. PT IS VERY LETHARGIC AT THIS TIME.
--- NOTE | 2024-09-25 08:30 | PN ---
[facility] CARDIOLOGY PROGRESS NOTE Cardiology progress note dictated for Benoit Crawford MD Date Patient Seen: Sep 25, 2024 Interval History: The patient presented with right lower extremity 3rd toe swelling, redness, diagnosed with cellulitis. There is a prior to a duplex from November of 2020 showing [id number] arterial inflow occlusion on the right at the trifurcation level, monophasic waveforms in the anterior tibial and dorsalis pedis arteries, with no significant stenosis on the left. This admission, there is a repeat arterial duplex which suggests 50-80% stenosis along the proximal right SFA and proximal right popliteal artery with monophasic waveforms of the bilateral distal GILL and DPA. Toe x-ray negative for fracture or subluxation. An MRI is pending. Hemoglobin A1c 13%. Total cholesterol 221, triglycerides 36, LDL 97, HDL 105. Physical Examination: GENERAL: No acute distress. HEAD: Normal with no signs of head trauma. EYES: PERRLA, EOMI, conjunctiva and sclera normal. NECK: Supple without JVD. There is no tenderness, lymphadenopathy, or masses. No thyromegaly. Normal carotid upstrokes without bruits. LUNGS: Clear breath sounds bilaterally. No wheezes, or rhonchi. HEART: Normal rate and rhythm. Normal S1 and S2 without gallop or rub. 2-3/6 ALON heard at the RUSB that radiates to the carotids. VASC: Peripheral pulses +2 bilaterally. EXT: Right hallux amputation. Right 3rd toe wound with dressing, trace pedal edema with erythema. Bilateral DP pulses 2+. NEURO: Awake, alert, and oriented x3. No focal neurological deficits noted. Laboratory: Hematology Labs: Test 09/25/24 03:54 09/24/24 06:25 09/23/24 16:10 Range/Units White Blood Count 10.1 4.8-10.8 K/uL Red Blood Count 3.88 L 4.00-5.50 MIL/uL Hemoglobin 11.9 L 12.0-16.0 g/dL Hematocrit 35.6 L 36-48 % Mean Corpuscular Volume 91.8 79-99 fL Mean Corpuscular Hemoglobin 30.7 27.0-33.0 pg Mean Corpuscular Hemoglobin Concent 33.4 32.0-36.0 g/dL Red Cell Distribution Width 13.2 11.0-15.5 % Platelet Count 232 130-400 K/uL Mean Platelet Volume 9.7 7.5-10.5 fL Nucleated Red Blood Cells 0.0 0.0-0.19 % Immature Granulocyte % (Auto) 0.6 0-1 % Neutrophils (%) (Auto) 86.3 H 40.0-77.0 % Lymphocytes (%) (Auto) 7.0 L 21.0-51.0 % Monocytes (%) (Auto) 5.7 3.0-13.0 % Eosinophils (%) (Auto) 0.2 0.0-8.0 % Basophils (%) (Auto) 0.2 0.0-5.0 % Neutrophils # (Auto) 10.8 H 1.8-7.7 K/uL Lymphocytes # (Auto) 0.9 L 1.0-4.8 K/uL Monocytes # (Auto) 0.7 0.1-1.0 K/uL Eosinophils # (Auto) 0.03 0.00-0.70 K/uL Basophils # (Auto) 0.03 0.00-0.20 K/uL Absolute Immature Granulocyte (auto 0.08 0-1 K/uL White Cell Morphology Comment See comments Erythrocyte Sedimentation Rate 95 H 0-30 MM/HR Chemistry Labs: Test 09/25/24 05:04 09/25/24 03:54 09/24/24 06:25 09/23/24 16:10 Range/Units Whole Blood Glucose 214 H 70-110 MG/DL Sodium Level 139 136-145 mmol/L Potassium Level 4.3 3.5-5.1 mmol/L Chloride Level 103 101-111 mmol/L Carbon Dioxide Level 31 21-32 mmol/L Blood Urea Nitrogen 17 7-18 mg/dL Creatinine 0.7 0.5-1.0 mg/dL Glomerular Filtration Rate Calc 100 >90 mL/min Random Glucose 204 H 70-105 mg/dL Total Calcium 9.0 8.5-10.1 mg/dL Magnesium Level 2.10 1.80-2.40 mg/dL Total Bilirubin 0.3 # 0.2-1.0 mg/dL Aspartate Amino Transf (AST/SGOT) 15 10-37 U/L Alanine Aminotransferase (ALT/SGPT) 10 L 12-78 U/L Alkaline Phosphatase 89 50-136 U/L Total Protein 7.5 6.0-8.3 g/dL Albumin 2.6 L 3.5-5.0 g/dL Hemoglobin A1c 13.0 H 4.0-6.0 % Estimated Average Glucose (eAG) 326 H 70-126 mg/dL Triglycerides Level 36 30-200 mg/dL Cholesterol Level 221 H <200 mg/dL LDL Cholesterol 97 0-99 mg/dL HDL Cholesterol 105 H 35-85 mg/dL C-Reactive Protein, Quantitative 173.50 H 0.5-3.0 mg/L Diagnostics / Radiology: Assessment: Right lower extremity cellulitis, s/p I/D on 09/24/[address] Braden Peripheral arterial disease with history of osteomyelitis of the right hallux status post amputation in 2020 Type 2 diabetes mellitus with peripheral neuropathy, peripheral angiopathy, hyperglycemia, A1c 13% Dyslipidemia Hypertension, uncontrolled Plan: We will continue aspirin, high-intensity statin, and P2Y12 inhibitor clopidogrel 75 mg daily We will await the results of the MRI. If osteomyelitis confirmed, may need to consider invasive angiography with possible PVI Continue aggressive wound care and antibiotics -Obtain CTA with BLE runoff MARRY RAHMAN PARKING RAMP ATTENDANT Sep 25, 2024 08:30
[2024-09-25] MEDS: glipiZIDE 5MG TABLET PO SCH (08:43)
[2024-09-25] MEDS: cloPIDOgrel 75MG TAB PO SCH (08:43)
[2024-09-25] MEDS: ASPIRIN 81 MG EC TAB PO SCH (08:43)
[2024-09-25] MEDS: FLUoxetine HCL 20 MG CAPSULE PO SCH (08:43)
[2024-09-25] MEDS: LISINOPRIL 20 MG TABLET PO SCH (08:44)
[2024-09-25] MEDS: atorVAStatin 40 MG TABLET PO SCH (08:44)
[2024-09-25] MEDS: BACITRACIN 28.4 GM OINT TP SCH (08:45)
[2024-09-25] MEDS: ENOXAPARIN SODIUM 40 MG/0.4 ML SYRINGE SQ SCH (08:45)
--- NOTE | 2024-09-25 09:03 | PN ---
[facility] PROGRESS NOTE Date of Service: Sep 25, 2024 Time of Service: 09:00 SUBJECTIVE: This is a 59-year-old presented in ED with concern of her right 3rd toe swelling and redness and decided to come to ED for further evaluation. Onset for several days. Patient reported no injury to foot. Patient reported she has peripheral neuropathy. Noted cellulitis and discoloration of 3rd toe no drainage. She denied fever chills. Patient admitted to the medical floor for further evaluation and medical management. X-ray of the right foot was done, no evidence for fracture or subluxation. Arterial Doppler done, 50-80% stenosis of the proximal right SFA and proximal right popliteal artery, monophasic flow of the bilateral distal anterior tibial arteries as well as along the bilateral dorsalis pedis. Patient remains hemodynamically stable, afebrile, saturating normal on room air, WBC trending down 12.6. Magnesium 1.7. Patient is currently getting IV antibiotics during my visit. 09/25 patient is seen and examined at bedside, case discussed with the RN, no acute events overnight, hemodynamically stable. Patient evaluated by gsa coordinator yesterday, I and D performed at bedside. We will continue with current pain medication, IV antibiotics, dressing changes. Patient evaluated by rock crushing machine operator, patient has been. Plavix 75 mg p.o. daily added. Follow results of MRI of the right foot, if osteomyelitis confirmed, may need to consider invasive Angiography versus CTA runoff. REVIEW OF SYSTEMS a 14 point ROS obtained all relevant positive documented otherwise ROS negative PHYSICAL EXAM GENERAL APPEARANCE: The patient is awake, alert, and oriented, in no acute cardiopulmonary distress. NEUROLOGICAL: Cranial nerves II-XII grossly intact. Motor is 5/5 in bilateral upper and lower extremities proximal to distal. No sensory deficits. HEENT: Face is symmetric. Pupils are equal and reactive. Extraocular movements are intact. NECK: Supple. No JVD. No thyromegaly. No submental, submandibular, pre- /postauricular, occipital or supraclavicular lymphadenopathy. CHEST: Normal chest expansion. No Telemetry. LUNGS: Absence of any rales, rhonchi or any wheezing. CARDIOVASCULAR: Regular. S1 and S2 normal. No appreciable rubs, murmurs or gallops. ABDOMEN: Soft, nontender, and nondistended. There is no rebound, voluntary guarding, or rigidity. : Deferred. No Best. EXTREMITIES: Non-edematous and not cyanotic. No clubbing. Good capillary refill. Right foot 3rd toe swollen erythematous. Amputation to the right great toe. Palpable pedal pulses. SKIN: No skin breakdown. Vital Signs (last 8hr) Date Time Temp Pulse Resp B/P (MAP) Pulse Ox O2 Delivery O2 Flow Rate FiO2 09/25/24 08:10 98.8 84 18 143/78 100 Room Air 09/25/24 04:00 97.3 68 16 127/67 98 Room Air LABS: Laboratory: Test 09/25/24 05:04 09/25/24 03:54 09/24/24 06:25 09/23/24 16:10 Range/Units Whole Blood Glucose 214 H 70-110 MG/DL White Blood Count 10.1 4.8-10.8 K/uL Red Blood Count 3.88 L 4.00-5.50 MIL/uL Hemoglobin 11.9 L 12.0-16.0 g/dL Hematocrit 35.6 L 36-48 % Mean Corpuscular Volume 91.8 79-99 fL Mean Corpuscular Hemoglobin 30.7 27.0-33.0 pg Mean Corpuscular Hemoglobin Concent 33.4 32.0-36.0 g/dL Red Cell Distribution Width 13.2 11.0-15.5 % Platelet Count 232 130-400 K/uL Mean Platelet Volume 9.7 7.5-10.5 fL Nucleated Red Blood Cells 0.0 0.0-0.19 % Sodium Level 139 136-145 mmol/L Potassium Level 4.3 3.5-5.1 mmol/L Chloride Level 103 101-111 mmol/L Carbon Dioxide Level 31 21-32 mmol/L Blood Urea Nitrogen 17 7-18 mg/dL Creatinine 0.7 0.5-1.0 mg/dL Glomerular Filtration Rate Calc 100 >90 mL/min Random Glucose 204 H 70-105 mg/dL Total Calcium 9.0 8.5-10.1 mg/dL Magnesium Level 2.10 1.80-2.40 mg/dL Total Bilirubin 0.3 # 0.2-1.0 mg/dL Aspartate Amino Transf (AST/SGOT) 15 10-37 U/L Alanine Aminotransferase (ALT/SGPT) 10 L 12-78 U/L Alkaline Phosphatase 89 50-136 U/L Total Protein 7.5 6.0-8.3 g/dL Albumin 2.6 L 3.5-5.0 g/dL Vancomycin Level Trough 7.0 #L 10.0-20.0 UG/ML Immature Granulocyte % (Auto) 0.6 0-1 % Neutrophils (%) (Auto) 86.3 H 40.0-77.0 % Lymphocytes (%) (Auto) 7.0 L 21.0-51.0 % Monocytes (%) (Auto) 5.7 3.0-13.0 % Eosinophils (%) (Auto) 0.2 0.0-8.0 % Basophils (%) (Auto) 0.2 0.0-5.0 % Neutrophils # (Auto) 10.8 H 1.8-7.7 K/uL Lymphocytes # (Auto) 0.9 L 1.0-4.8 K/uL Monocytes # (Auto) 0.7 0.1-1.0 K/uL Eosinophils # (Auto) 0.03 0.00-0.70 K/uL Basophils # (Auto) 0.03 0.00-0.20 K/uL Absolute Immature Granulocyte (auto 0.08 0-1 K/uL Hemoglobin A1c 13.0 H 4.0-6.0 % Estimated Average Glucose (eAG) 326 H 70-126 mg/dL Triglycerides Level 36 30-200 mg/dL Cholesterol Level 221 H <200 mg/dL LDL Cholesterol 97 0-99 mg/dL HDL Cholesterol 105 H 35-85 mg/dL White Cell Morphology Comment See comments Erythrocyte Sedimentation Rate 95 H 0-30 MM/HR C-Reactive Protein, Quantitative 173.50 H 0.5-3.0 mg/L Current Medications Medications (Trade) Dose Ordered Sig/David Route PRN Reason Start Time Stop Time Status Last Admin Dose Admin Acetaminophen (TYLenol 325MG TAB) 650 mg Q4H PRN PO TEMPERATURE GREATER THAN 101.5 09/23/24 17:00 10/23/24 16:59 09/24/24 22:55 650 MG Acetaminophen/ Codeine Phosphate (TYLenol-coDEINE TAB) 1 tab Q4H PRN PO MODERATE PAIN (4-6) 09/23/24 17:00 10/23/24 16:59 Aspirin (Aspirin 81mg Ec Tab) 81 mg DAILY PO 09/25/24 09:00 10/25/24 08:59 09/25/24 08:43 81 MG Atorvastatin Calcium (LIPItor 40MG) 80 mg DAILY PO 09/25/24 09:00 10/25/24 08:59 09/25/24 08:44 80 MG Bacitracin (Bacitracin 28.4gm) 1 PATRICK AD DAILY TP 09/25/24 09:00 10/25/24 08:59 09/25/24 08:45 1 GM Clopidogrel Bisulfate (plaVIX 75MG) 75 mg DAILY PO 09/25/24 09:00 10/25/24 08:59 09/25/24 08:43 75 MG Enoxaparin Sodium (Lovenox) 40 mg DAILY SQ 09/25/24 09:00 10/25/24 08:59 09/25/24 08:45 40 MG Fluoxetine HCl (FLUoxetine HCL 20 MG CAPSULE) 20 mg DAILY PO 09/25/24 09:00 10/25/24 08:59 09/25/24 08:43 20 MG Gabapentin (NEURontin 100 mg CAP) 100 mg TID PO 09/24/24 14:00 10/24/24 13:59 09/25/24 08:44 100 MG Glipizide (GLUCOtrol 5MG TABLET) 5 mg DAILY PO 09/25/24 09:00 10/25/24 08:59 09/25/24 08:43 5 MG Hydralazine HCl (APRESOLine 20MG INJ) 5 mg Q4H PRN IV ADMINISTER FOR SBP > 160 09/23/24 17:00 10/23/24 16:59 Insulin Human Isoph/Insulin Regular (humuLIN 70-30 VIAL) 40 unit BIDAC SQ 09/24/24 16:30 10/24/24 16:29 09/24/24 17:08 40 UNIT Insulin Human Regular (humuLIN R 100 UNIT/ML 3ML) INSULIN SLIDING SCAL... ACHS SQ 09/23/24 21:00 10/23/24 20:59 09/24/24 20:08 10 UNIT Lactulose (Constulose 20gm/ 30ml Udcup) 20 gm BID PRN PO CONSTIPATION 09/23/24 17:00 10/23/24 16:59 Lisinopril (Prinivil 20mg) 20 mg DAILY PO 09/25/24 09:00 10/25/24 08:59 09/25/24 08:44 20 MG Magnesium Sulfate 50 ml @ 0 mls/hr PROTOCOL IV 09/24/24 11:00 10/24/24 10:59 09/24/24 13:43 25 MLS/HR Magnesium Sulfate 50 ml @ 0 mls/hr PROTOCOL PRN IV low mag level 09/23/24 17:00 09/24/24 10:58 DC Ondansetron HCl (zoFRAN 4MG INJ) 4 mg Q6H PRN IVP NAUSEA/VOMITING 09/23/24 17:00 10/23/24 16:59 Pharmacy Profile Note (Pharmacy Communication) 1 each ONCE MISC 09/23/24 17:30 09/24/24 07:32 DC Piperacillin Sod/ Tazobactam Sod (Zosyn 3.375gm+NS 50ml) 3.375 gm Q8H IV 09/23/24 16:30 10/03/24 16:29 09/25/24 08:44 3.375 GM Potassium Chloride 100 ml @ 100 mls/hr AD PRN IV POTASSIUM PROTOCOL 09/23/24 17:00 10/23/24 16:59 Potassium Chloride (K-Dur/Klor-Con 20meq) 20 meq AD PRN PO POTASSIUM PROTOCOL 09/23/24 17:00 10/23/24 16:59 Potassium Chloride (KCl 10% Elixir 20meq/15ml) 20 meq AD PRN PO POTASSIUM PROTOCOL 09/23/24 17:00 10/23/24 16:59 Sodium Chloride 1,000 ml @ 75 mls/hr [id number] IV 09/23/24 17:00 10/23/24 16:59 09/25/24 08:46 75 MLS/HR Vancomycin HCl (Vancomycin 1g/ 250ml Kit) 1 gm Q12H IV 09/23/24 16:30 09/25/24 05:02 DC 09/25/24 04:37 1 GM Vancomycin HCl (Vancomycin 1g/ 250ml Kit) 1 gm Q8H IV 09/25/24 12:30 10/05/24 12:29 DIAGNOSTICS / RADIOLOGY: [ ] ASSESSMENT: Abscess cellulitis 3rd toe right foot diabetic foot infection, POA Status post I&D 09/24/2024 Suspecting osteomyelitis POA Leukocytosis POA DM with Hyperglycemia POA Peripheral neuropathy POA PAD with 50-80% stenosis proximal right SFA and proximal right popliteal artery POA Medical noncompliance POA PLAN: Patient remains admitted to the medical floor Continue the patient on broad-spectrum IV antibiotics, status post I and D at bedside by gsa coordinator, follow cultures and adjust antibiotics accordingly Patient evaluated by rock crushing machine operator, patient has been. Plavix 75 mg p.o. daily added. Follow results of MRI of the right foot, if osteomyelitis confirmed, may need to consider invasive Angiography versus CTA runoff. Follow MRI right foot rule out possible osteomyelitis NEURO: Minimize central acting medications as possible. Fall Precautions. Well lighted room through the day and minimize interruptions through the night to prevent acute delirium. PULMONARY: Supplemental 02 as needed BiPAP as necessary, for respiratory distress Titrate Fio2 to keep Spo2 > or = 90% DuoNebs and CPT as needed IS hourly while awake for pulmonary hygiene prn Out of bed to chair as tolerated Maintain aspiration precautions at all times CARDIOVASCULAR: Follow hemodynamics. Vital signs per facility protocol GI & NUTRITION: Continue nutritional support Aspirations precautions Prokinetic agents and laxatives as needed KIDNEYS & ELECTROLYTES: Strict monitoring of intake and output Daily weights Avoid nephrotoxic agents Monitor electrolytes and replace as needed Goal urine output of 30mL/hr or 0.5mL/kg/hr Medications to be dosed according to renal function. Avoid contrast if possible ENDOCRINE: Maintain blood glucose between 100-180 at all times. Insulin sliding scale for blood glucose management Hypoglycemia and hyperglycemia protocol in place INFECTIOUS DISEASE: Trend temperature, WBC and procalcitonin level Follow cultures, deescalate antibiotics as soon as possible. Panculture if new onset fever HEMATOLOGY & COAGULATION: Monitor H&H. Keep Hgb > 7 Transfuse 1 unit of PRBC for Hgb < 7 Transfuse 1 pack of platelets of platelets < 20, 000 Watch for any signs and symptoms of bleeding SKIN: Pressure ulcer prevention per facility protocol Specialty mattress as needed ORTHO/REHAB Continue PT/OT PRN: MEDICATIONS Tylenol 650 mg po every 4 hrs for fever zofran 4 mg IV every 6 hrs for n/v Hydralazine 5 mg IV every 4 hrs systolic pressure > 160 bowel regiment: lactulose 20 gm PO BID PRN constipation Supportive measures: Continue GI and DVT prophylaxis Disposition: Pending improvement in clinical condition All questions answered time spent: > 35 min CANDICE LAZAR MD Sep 25, 2024 09:03
[2024-09-25] MEDS: VANCOMYCIN KIT 1 GM/250 ML IV.KIT IV SCH (12:09)
--- NOTE | 2024-09-25 14:49 | NUR ---
[facility] Consult: Patient assessed by wound healing team. See wound assessment. Assessment and recommendations provided to primary nurse. Education provided. Wound care done. Addendum: 09/25/24 at 1547 by MITCH SALINAS RN RN/ Amended: Links added.
[2024-09-25] MEDS ORDERED: IOHEXOL 350 MG/ML 100ML INFUS..BTL IV ONE (17:02)
[2024-09-25] MEDS ORDERED: IOHEXOL-350 50ML VIAL IV ONE (17:02)
--- NOTE | 2024-09-25 21:09 | HMCIMG ---
Exam Type: CT angiogram abdomen and pelvis and lower extremities run-off with contrast Exam Type: CT ANGIO ABD AORTA W RUNOFF Clinical Information: PAD Comparison: None Technique: Routine helical scanning at 5mm collimation through the abdomen and pelvis after contrast administration. In addition, sagittal and coronary formations of the abdomen pelvis and surface rendering three-dimensional reconstructions of the abdominal aorta and the bilateral lower extremity arterial system were performed. Findings: The vascular exam is unremarkable. The abdominal aorta, bifurcation, and both lower extremity arterial system to included the common femoral artery, the superficial femoral artery, the popliteal artery, and the vessels of the trifurcation runoff are intact bilaterally without evidence of significant atheromatous disease or occlusion. There is no aortic aneurysm. There is no occlusion. There is no dissection. There is no extravasation to suggest laceration or rupture. No evidence of nephro or ureterolithiasis is found. No hydronephrosis or ureteral dilatation is seen. The visualized portion of the stomach is unremarkable. It shows no wall thickening. No gross ulceration is seen. It is not overly distended. There are no surrounding inflammatory changes. No wall lesions are identified to suggest cancer. The visualized portion of the spleen is unremarkable. It is not enlarged. The pancreas shows normal anatomy. It is not fatty replaced. It shows no lesions. The pancreatic duct is not dilated. There is evidence of cholelithiasis. No evidence of acute or chronic inflammation is seen. The adrenal glands are unremarkable. There is no enlargement. No lesions are noted. The visualized portion of the liver is unremarkable. It shows no focal masses. The appendix is unremarkable. It shows no evidence of inflammation. No appendicolith is seen. The small bowel is unremarkable. There is no evidence of dilatation to suggest obstruction. No evidence of adynamic ileus is seen. There is no small bowel wall thickening to suggest enteritis. Abundant fecal matter is noted throughout the colon consistent with constipation. The urinary bladder is unremarkable. There is no wall thickening to suggest tumor or inflammation. There are no intraluminal calculi. There are no diverticula. There is no evidence of chronic bladder outlet obstruction. There is no evidence of urinary bladder distention to suggest urinary retention. The other pelvic structures are unremarkable. The bony and vascular structures are unremarkable for the patient's age. IMPRESSION: 1. Normal examination. No significant vascular abnormalities are identified. No significant peripheral vascular disease detected. Runoff is preserved bilaterally. This study was performed using dose reduction techniques to include automated exposure control and/or adjustment of the mA and/or kV according to patient size.
[2024-09-26] VITALS (8 sets, daily range): BP systolic 128–166; BP diastolic 68–89; PULSE 71–97; RESP 18–20; TEMP 97.5–100.6; O2SAT 98
[2024-09-26 04:08] LABS: HEMATOCRIT 36.5 % (36-48); MEAN CORPUSCULAR HEMOGLOBIN 30.8 pg (27.0-33.0); MEAN CORPUSCULAR HGB CONC 33.2 g/dL (32.0-36.0); MEAN CORPUSCULAR VOLUME 92.9 fL (79-99); RED BLOOD CELL COUNT(AUTO) 3.93 MIL/uL (4.00-5.50); RED CELL DISTRIBUTION WIDTH 13.1 % (11.0-15.5); WHITE BLOOD COUNT (AUTO) 8.7 K/uL (4.8-10.8)
[2024-09-26 04:24] LABS: ALBUMIN 2.5 g/dL (3.5-5.0); BILIRUBIN,TOTAL 0.2 mg/dL (0.2-1.0); CREATININE 0.7 mg/dL (0.5-1.0); MAGNESIUM 1.9 mg/dL (1.80-2.40); TOTAL PROTEIN, SERUM 7.6 g/dL (6.0-8.3); VANCOMYCIN TROUGH 15.2 UG/ML (10.0-20.0)
[2024-09-26] MEDS: PoTASSium chloRIDE 20MEQ ER 20 MEQ ERTAB PO PRN (04:45)
[2024-09-26] MEDS: PoTASSium chloRIDE 20MEQ/100ML 100 ML IV PRN (04:45)
--- NOTE | 2024-09-26 08:25 | PN ---
[facility] PROGRESS NOTE Date of Service: Sep 26, 2024 Time of Service: 08:23 SUBJECTIVE: This is a 59-year-old presented in ED with concern of her right 3rd toe swelling and redness and decided to come to ED for further evaluation. Onset for several days. Patient reported no injury to foot. Patient reported she has peripheral neuropathy. Noted cellulitis and discoloration of 3rd toe no drainage. She denied fever chills. Patient admitted to the medical floor for further evaluation and medical management. X-ray of the right foot was done, no evidence for fracture or subluxation. Arterial Doppler done, 50-80% stenosis of the proximal right SFA and proximal right popliteal artery, monophasic flow of the bilateral distal anterior tibial arteries as well as along the bilateral dorsalis pedis. Patient remains hemodynamically stable, afebrile, saturating normal on room air, WBC trending down 12.6. Magnesium 1.7. Patient is currently getting IV antibiotics during my visit. 09/25 patient is seen and examined at bedside, case discussed with the RN, no acute events overnight, hemodynamically stable. Patient evaluated by water resource project manager yesterday, I and D performed at bedside. We will continue with current pain medication, IV antibiotics, dressing changes. Patient evaluated by resident assistant cna, patient has been. Plavix 75 mg p.o. daily added. Follow results of MRI of the right foot, if osteomyelitis confirmed, may need to consider invasive Angiography versus CTA runoff. 09/26 patient is seen and examined at bedside, patient is still spiking fever, she is alert oriented x3, hemodynamically stable, maximum temperature last night 101.5. Septic workup reviewed, so far blood cultures negative, and aerobic culture preliminary report no growth yet. Aorta runoff normal examination, no significant vascular abnormalities identified, no significant peripheral vascular disease, runoff is preserved bilaterally. In the MRI to the right foot. Continue broad-spectrum IV antibiotics. Continue dressing changes to the right foot per Podiatry recommendations. REVIEW OF SYSTEMS a 14 point ROS obtained all relevant positive documented otherwise ROS negative PHYSICAL EXAM GENERAL APPEARANCE: The patient is awake, alert, and oriented, in no acute cardiopulmonary distress. NEUROLOGICAL: Cranial nerves II-XII grossly intact. Motor is 5/5 in bilateral upper and lower extremities proximal to distal. No sensory deficits. HEENT: Face is symmetric. Pupils are equal and reactive. Extraocular movements are intact. NECK: Supple. No JVD. No thyromegaly. No submental, submandibular, pre-/postauricular, occipital or supraclavicular lymphadenopathy. CHEST: Normal chest expansion. No Telemetry. LUNGS: Absence of any rales, rhonchi or any wheezing. CARDIOVASCULAR: Regular. S1 and S2 normal. No appreciable rubs, murmurs or gallops. ABDOMEN: Soft, nontender, and nondistended. There is no rebound, voluntary guarding, or rigidity. : Deferred. No Best. EXTREMITIES: Non-edematous and not cyanotic. No clubbing. Good capillary refill. Right foot 3rd toe swollen erythematous. Amputation to the right great toe. Palpable pedal pulses. SKIN: No skin breakdown. Vital Signs (last 8hr) Date Time Temp Pulse Resp B/P (MAP) Pulse Ox O2 Delivery O2 Flow Rate FiO2 09/26/24 08:06 98.2 83 20 159/70 100 Room Air 09/26/24 04:00 97.5 71 20 157/89 100 Room Air LABS: Laboratory: Test 09/26/24 05:10 09/26/24 03:34 Range/Units Whole Blood Glucose 123 #H 70-110 MG/DL White Blood Count 8.7 4.8-10.8 K/uL Red Blood Count 3.93 L 4.00-5.50 MIL/uL Hemoglobin 12.1 12.0-16.0 g/dL Hematocrit 36.5 36-48 % Mean Corpuscular Volume 92.9 79-99 fL Mean Corpuscular Hemoglobin 30.8 27.0-33.0 pg Mean Corpuscular Hemoglobin Concent 33.2 32.0-36.0 g/dL Red Cell Distribution Width 13.1 11.0-15.5 % Platelet Count 249 130-400 K/uL Mean Platelet Volume 10.0 7.5-10.5 fL Nucleated Red Blood Cells 0.0 0.0-0.19 % Sodium Level 140 136-145 mmol/L Potassium Level 3.0 *L 3.5-5.1 mmol/L Chloride Level 103 101-111 mmol/L Carbon Dioxide Level 29 21-32 mmol/L Blood Urea Nitrogen 12 7-18 mg/dL Creatinine 0.7 0.5-1.0 mg/dL Glomerular Filtration Rate Calc 100 >90 mL/min Random Glucose 86 # 70-105 mg/dL Total Calcium 9.0 8.5-10.1 mg/dL Magnesium Level 1.90 1.80-2.40 mg/dL Total Bilirubin 0.2 # 0.2-1.0 mg/dL Aspartate Amino Transf (AST/SGOT) 26 10-37 U/L Alanine Aminotransferase (ALT/SGPT) 17 # 12-78 U/L Alkaline Phosphatase 85 50-136 U/L Total Protein 7.6 6.0-8.3 g/dL Albumin 2.5 L 3.5-5.0 g/dL Vancomycin Level Trough 15.2 # 10.0-20.0 UG/ML Current Medications Medications (Trade) Dose Ordered Sig/David Route PRN Reason Start Time Stop Time Status Last Admin Dose Admin Acetaminophen (TYLenol 325MG TAB) 650 mg Q4H PRN PO TEMPERATURE GREATER THAN 101.5 09/23/24 17:00 10/23/24 16:59 09/25/24 19:43 650 MG Acetaminophen/ Codeine Phosphate (TYLenol-coDEINE TAB) 1 tab Q4H PRN PO MODERATE PAIN (4-6) 09/23/24 17:00 10/23/24 16:59 Aspirin (Aspirin 81mg Ec Tab) 81 mg DAILY PO 09/25/24 09:00 10/25/24 08:59 09/25/24 08:43 81 MG Atorvastatin Calcium (LIPItor 40MG) 80 mg DAILY PO 09/25/24 09:00 10/25/24 08:59 09/25/24 08:44 80 MG Bacitracin (Bacitracin 28.4gm) 1 PATRICK AD DAILY TP 09/25/24 09:00 10/25/24 08:59 09/25/24 08:45 1 GM Clopidogrel Bisulfate (plaVIX 75MG) 75 mg DAILY PO 09/25/24 09:00 10/25/24 08:59 09/25/24 08:43 75 MG Enoxaparin Sodium (Lovenox) 40 mg DAILY SQ 09/25/24 09:00 10/25/24 08:59 09/25/24 08:45 40 MG Fluoxetine HCl (FLUoxetine HCL 20 MG CAPSULE) 20 mg DAILY PO 09/25/24 09:00 10/25/24 08:59 09/25/24 08:43 20 MG Gabapentin (NEURontin 100 mg CAP) 100 mg TID PO 09/24/24 14:00 10/24/24 13:59 09/25/24 21:14 100 MG Glipizide (GLUCOtrol 5MG TABLET) 5 mg DAILY PO 09/25/24 09:00 10/25/24 08:59 09/25/24 08:43 5 MG Hydralazine HCl (APRESOLine 20MG INJ) 5 mg Q4H PRN IV ADMINISTER FOR SBP > 160 09/23/24 17:00 10/23/24 16:59 Insulin Human Isoph/Insulin Regular (humuLIN 70-30 VIAL) 40 unit BIDAC SQ 09/24/24 16:30 10/24/24 16:29 09/25/24 18:21 40 UNIT Insulin Human Regular (humuLIN R 100 UNIT/ML 3ML) INSULIN SLIDING SCAL... ACHS SQ 09/23/24 21:00 10/23/24 20:59 09/25/24 21:17 4 UNIT Lactulose (Constulose 20gm/ 30ml Udcup) 20 gm BID PRN PO CONSTIPATION 09/23/24 17:00 10/23/24 16:59 Lisinopril (Prinivil 20mg) 20 mg DAILY PO 09/25/24 09:00 10/25/24 08:59 09/25/24 08:44 20 MG Magnesium Sulfate 50 ml @ 0 mls/hr PROTOCOL IV 09/24/24 11:00 10/24/24 10:59 09/24/24 13:43 25 MLS/HR Magnesium Sulfate 50 ml @ 0 mls/hr PROTOCOL PRN IV low mag level 09/23/24 17:00 09/24/24 10:58 DC Ondansetron HCl (zoFRAN 4MG INJ) 4 mg Q6H PRN IVP NAUSEA/VOMITING 09/23/24 17:00 10/23/24 16:59 Pharmacy Profile Note (Pharmacy Communication) 1 each ONCE MISC 09/23/24 17:30 09/24/24 07:32 DC Piperacillin Sod/ Tazobactam Sod (Zosyn 3.375gm+NS 50ml) 3.375 gm Q8H IV 09/23/24 16:30 10/03/24 16:29 09/26/24 00:48 3.375 GM Potassium Chloride 100 ml @ 100 mls/hr AD PRN IV POTASSIUM PROTOCOL 09/23/24 17:00 10/23/24 16:59 09/26/24 04:45 100 MLS/HR Potassium Chloride (K-Dur/Klor-Con 20meq) 20 meq AD PRN PO POTASSIUM PROTOCOL 09/23/24 17:00 10/23/24 16:59 09/26/24 04:45 20 MEQ Potassium Chloride (KCl 10% Elixir 20meq/15ml) 20 meq AD PRN PO POTASSIUM PROTOCOL 09/23/24 17:00 10/23/24 16:59 Sodium Chloride 1,000 ml @ 75 mls/hr [id number] IV 09/23/24 17:00 10/23/24 16:59 09/25/24 22:21 75 MLS/HR Vancomycin HCl (Vancomycin 1g/ 250ml Kit) 1 gm Q12H IV 09/23/24 16:30 09/25/24 05:02 DC 09/25/24 04:37 1 GM Vancomycin HCl (Vancomycin 1g/ 250ml Kit) 1 gm Q8H IV 09/25/24 12:30 10/05/24 12:29 09/26/24 04:43 1 GM DIAGNOSTICS / RADIOLOGY: [ ] Exam Type: CT angiogram abdomen and pelvis and lower extremities run-off with contrast Exam Type: CT ANGIO ABD AORTA W RUNOFF Clinical Information: PAD Comparison: None Technique: Routine helical scanning at 5mm collimation through the abdomen and pelvis after contrast administration. In addition, sagittal and coronary formations of the abdomen pelvis and surface rendering three-dimensional reconstructions of the abdominal aorta and the bilateral lower extremity arterial system were performed. Findings: The vascular exam is unremarkable. The abdominal aorta, bifurcation, and both lower extremity arterial system to included the common femoral artery, the superficial femoral artery, the popliteal artery, and the vessels of the trifurcation runoff are intact bilaterally without evidence of significant atheromatous disease or occlusion. There is no aortic aneurysm. There is no occlusion. There is no dissection. There is no extravasation to suggest laceration or rupture. No evidence of nephro or ureterolithiasis is found. No hydronephrosis or ureteral dilatation is seen. The visualized portion of the stomach is unremarkable. It shows no wall thickening. No gross ulceration is seen. It is not overly distended. There are no surrounding inflammatory changes. No wall lesions are identified to suggest cancer. The visualized portion of the spleen is unremarkable. It is not enlarged. The pancreas shows normal anatomy. It is not fatty replaced. It shows no lesions. The pancreatic duct is not dilated. There is evidence of cholelithiasis. No evidence of acute or chronic inflammation is seen. The adrenal glands are unremarkable. There is no enlargement. No lesions are noted. The visualized portion of the liver is unremarkable. It shows no focal masses. The appendix is unremarkable. It shows no evidence of inflammation. No appendicolith is seen. The small bowel is unremarkable. There is no evidence of dilatation to suggest obstruction. No evidence of adynamic ileus is seen. There is no small bowel wall thickening to suggest enteritis. Abundant fecal matter is noted throughout the colon consistent with constipation. The urinary bladder is unremarkable. There is no wall thickening to suggest tumor or inflammation. There are no intraluminal calculi. There are no diverticula. There is no evidence of chronic bladder outlet obstruction. There is no evidence of urinary bladder distention to suggest urinary retention. The other pelvic structures are unremarkable. The bony and vascular structures are unremarkable for the patient's age. IMPRESSION: 1. Normal examination. No significant vascular abnormalities are identified. No significant peripheral vascular disease detected. Runoff is preserved bilaterally. This study was performed using dose reduction techniques to include automated exposure control and/or adjustment of the mA and/or kV according to patient size. ASSESSMENT: Abscess cellulitis 3rd toe right foot diabetic foot infection, POA Status post I&D 09/24/2024 Suspecting osteomyelitis POA Leukocytosis POA DM with Hyperglycemia POA Peripheral neuropathy POA PAD with 50-80% stenosis proximal right SFA and proximal right popliteal artery POA Medical noncompliance POA PLAN: Patient remains admitted to the medical floor Patient is still spiking fever, maximum temperature last night 101.5. Septic workup reviewed, so far blood cultures negative, and aerobic culture preliminary report no growth yet. Aorta runoff normal examination, no significant vascular abnormalities identified, no significant peripheral vascular disease, runoff is preserved bilaterally. Continue broad-spectrum IV antibiotics. Follow MRI right foot rule out possible osteomyelitis Continue dressing changes to the right foot per Podiatry recommendations. NEURO: Minimize central acting medications as possible. Fall Precautions. Well lighted room through the day and minimize interruptions through the night to prevent acute delirium. PULMONARY: Supplemental 02 as needed BiPAP as necessary, for respiratory distress Titrate Fio2 to keep Spo2 > or = 90% DuoNebs and CPT as needed IS hourly while awake for pulmonary hygiene prn Out of bed to chair as tolerated Maintain aspiration precautions at all times CARDIOVASCULAR: Follow hemodynamics. Vital signs per facility protocol GI & NUTRITION: Continue nutritional support Aspirations precautions Prokinetic agents and laxatives as needed KIDNEYS & ELECTROLYTES: Strict monitoring of intake and output Daily weights Avoid nephrotoxic agents Monitor electrolytes and replace as needed Goal urine output of 30mL/hr or 0.5mL/kg/hr Medications to be dosed according to renal function. Avoid contrast if possible ENDOCRINE: Maintain blood glucose between 100-180 at all times. Insulin sliding scale for blood glucose management Hypoglycemia and hyperglycemia protocol in place INFECTIOUS DISEASE: Trend temperature, WBC and procalcitonin level Follow cultures, deescalate antibiotics as soon as possible. Panculture if new onset fever HEMATOLOGY & COAGULATION: Monitor H&H. Keep Hgb > 7 Transfuse 1 unit of PRBC for Hgb < 7 Transfuse 1 pack of platelets of platelets < 20, 000 Watch for any signs and symptoms of bleeding SKIN: Pressure ulcer prevention per facility protocol Specialty mattress as needed ORTHO/REHAB Continue PT/OT PRN: MEDICATIONS Tylenol 650 mg po every 4 hrs for fever zofran 4 mg IV every 6 hrs for n/v Hydralazine 5 mg IV every 4 hrs systolic pressure > 160 bowel regiment: lactulose 20 gm PO BID PRN constipation Supportive measures: Continue GI and DVT prophylaxis Disposition: Pending improvement in clinical condition All questions answered time spent: > 35 min CANDICE LAZAR MD Sep 26, 2024 08:25
[2024-09-26] MEDS: PoTASSium chloRIDE 20MEQ ER 20 MEQ ERTAB PO ONE (08:58)
--- NOTE | 2024-09-26 14:20 | PN ---
[facility] CARDIOLOGY PROGRESS NOTE Date Patient Seen: Sep 26, 2024 Time of Visit: 14:17 Interval History: [No acute events overnight , she underwent LE abdominal CT with runoff that did not show any hemodynamically significant stenosis. ] Physical Examination: GENERAL: [No acute distress.] HEAD: [Normal with no signs of head trauma.] EYES: [PERRLA, EOMI, conjunctiva and sclera normal.] ENT: [Hearing grossly intact, normal oropharynx.] NECK: Normal carotid upstrokes without bruits.] LUNGS: [Clear breath sounds bilaterally. On room air. No wheezes, or rhonchi.] HEART: [Normal rate and rhythm. 2/6 systolic murmur at left upper sternal border VASC: [Peripheral pulses +2 bilaterally. at the DP, PT and radial ABD: [Soft, nontender.] EXT: [Nonpitting edema of the right 3rd toe. Status post scraping of the distal aspect. She is status post right hallux amputation, incision site healed well. NEURO: [Awake, alert, and oriented x3. decreased sensation to light touch of the bilateral feet extending to the level of the ankle, equivocal] Laboratory: [ ] Hematology Labs: Test 09/26/24 03:34 Range/Units White Blood Count 8.7 4.8-10.8 K/uL Red Blood Count 3.93 L 4.00-5.50 MIL/uL Hemoglobin 12.1 12.0-16.0 g/dL Hematocrit 36.5 36-48 % Mean Corpuscular Volume 92.9 79-99 fL Mean Corpuscular Hemoglobin 30.8 27.0-33.0 pg Mean Corpuscular Hemoglobin Concent 33.2 32.0-36.0 g/dL Red Cell Distribution Width 13.1 11.0-15.5 % Platelet Count 249 130-400 K/uL Mean Platelet Volume 10.0 7.5-10.5 fL Nucleated Red Blood Cells 0.0 0.0-0.19 % Chemistry Labs: Test 09/26/24 10:35 09/26/24 03:34 Range/Units Whole Blood Glucose 146 H 70-110 MG/DL Sodium Level 140 136-145 mmol/L Potassium Level 3.0 *L 3.5-5.1 mmol/L Chloride Level 103 101-111 mmol/L Carbon Dioxide Level 29 21-32 mmol/L Blood Urea Nitrogen 12 7-18 mg/dL Creatinine 0.7 0.5-1.0 mg/dL Glomerular Filtration Rate Calc 100 >90 mL/min Random Glucose 86 # 70-105 mg/dL Total Calcium 9.0 8.5-10.1 mg/dL Magnesium Level 1.90 1.80-2.40 mg/dL Total Bilirubin 0.2 # 0.2-1.0 mg/dL Aspartate Amino Transf (AST/SGOT) 26 10-37 U/L Alanine Aminotransferase (ALT/SGPT) 17 # 12-78 U/L Alkaline Phosphatase 85 50-136 U/L Total Protein 7.6 6.0-8.3 g/dL Albumin 2.5 L 3.5-5.0 g/dL Diagnostics / Radiology: [Copy/Paste Echos/Imaging Report here] Impression and Plan: [ Assessment: Right lower extremity cellulitis, s/p I/D on 09/24/[address] Braden Suspected osteomyelitis of the right hallux status post amputation in 2020 Type 2 diabetes mellitus with peripheral neuropathy, peripheral angiopathy, hyperglycemia, A1c 13% Dyslipidemia Hypertension, uncontrolled Plan: We will continue aspirin and high-intensity statin. No indication for Plavix given no evidence of PAD LE abdominal CT with runoff that did not show any hemodynamically significant stenosis. Continue aggressive wound care and antibiotics From the cardiovascular stand point no further interventions are needed Patient was pending lower extremity MRI to rule out osteomyelitis Thank you for this consult cardiology will sign off at this time the patient will follow up with clinic 1-2 weeks after discharge Benoit Crawford MD ATTESTATION BY PHYSICIAN I have seen and examined the patient, reviewed the above documentation, participated in medical decision making, made necessary modifications, and agree with the treatment plan as documented by my mid-level provider above. MD MARY GRACE Richards JAMES R MD Sep 26, 2024 14:20
--- NOTE | 2024-09-26 16:20 | HMCIMG ---
MRI RIGHT MID AND FOREFOOT WITHOUT AND WITH CONTRAST INDICATION: Evaluate for osteomyelitis COMPARISON: None TECHNIQUE: Long and short axis fat and water weighted sequences were obtained through the right mid and forefoot before and after the administration of 12 mL of Clariscan contrast material without adverse effect. FINDINGS: Nominal coalescent low T1 signal encroaches upon the tip of the third distal phalanx, and nominal subcortical reactive marrow edema may be present at the same level. Amputation of the great toe phalanges. No evidence for periosteal reaction, cortical erosive changes, or any abnormal subperiosteal bone resorption. No high-grade ligamentous or tendinous abnormality detected. Midfoot alignment is well maintained, and Lisfranc ligament is intact. No significant degenerative joint disease identified. No evidence for sesamoiditis, sesamoid dysplasia, or sesamoid migration. No abnormal soft tissue mass, ganglion, or Cr's neuroma identified. No evidence for muscle atrophy, fatty infiltration, or denervation myoedema. No abnormal enhancement noted. No evidence for fracture. IMPRESSION: Findings suggesting focal third distal phalangeal tuft osteitis or very early osteomyelitis, without abscess.
[2024-09-26] MEDS ORDERED: GADOTERATE MEGLUMINE 10 MMOL/20 ML VIAL IV ONE (16:27)
[2024-09-27] VITALS (8 sets, daily range): BP systolic 120–163; BP diastolic 61–89; PULSE 82–104; RESP 17–18; TEMP 98.7–102.8; O2SAT 96–97
[2024-09-27 04:29] LABS: MEAN CORPUSCULAR HEMOGLOBIN 30.7 pg (27.0-33.0); MEAN CORPUSCULAR HGB CONC 33.5 g/dL (32.0-36.0); MEAN CORPUSCULAR VOLUME 91.4 fL (79-99); RED BLOOD CELL COUNT(AUTO) 3.39 MIL/uL (4.00-5.50); WHITE BLOOD COUNT (AUTO) 11.1 K/uL (4.8-10.8)
[2024-09-27 05:31] LABS: ALBUMIN 2.1 g/dL (3.5-5.0); BILIRUBIN,TOTAL 0.2 mg/dL (0.2-1.0); CREATININE 0.7 mg/dL (0.5-1.0); MAGNESIUM 1.6 mg/dL (1.80-2.40); POTASSIUM 3.5 mmol/L (3.5-5.1); TOTAL PROTEIN, SERUM 6.7 g/dL (6.0-8.3); VANCOMYCIN TROUGH 19.4 UG/ML (10.0-20.0)
--- NOTE | 2024-09-27 10:02 | PN ---
[facility] PROGRESS NOTE Date of Service: Sep 27, 2024 Time of Service: 10:00 SUBJECTIVE: This is a 59-year-old presented in ED with concern of her right 3rd toe swelling and redness and decided to come to ED for further evaluation. Onset for several days. Patient reported no injury to foot. Patient reported she has peripheral neuropathy. Noted cellulitis and discoloration of 3rd toe no drainage. She denied fever chills. Patient admitted to the medical floor for further evaluation and medical management. X-ray of the right foot was done, no evidence for fracture or subluxation. Arterial Doppler done, 50-80% stenosis of the proximal right SFA and proximal right popliteal artery, monophasic flow of the bilateral distal anterior tibial arteries as well as along the bilateral dorsalis pedis. Patient remains hemodynamically stable, afebrile, saturating normal on room air, WBC trending down 12.6. Magnesium 1.7. Patient is currently getting IV antibiotics during my visit. 09/25 patient is seen and examined at bedside, case discussed with the RN, no acute events overnight, hemodynamically stable. Patient evaluated by buy boat operator yesterday, I and D performed at bedside. We will continue with current pain medication, IV antibiotics, dressing changes. Patient evaluated by solar manager, patient has been. Plavix 75 mg p.o. daily added. Follow results of MRI of the right foot, if osteomyelitis confirmed, may need to consider invasive Angiography versus CTA runoff. 09/26 patient is seen and examined at bedside, patient is still spiking fever, she is alert oriented x3, hemodynamically stable, maximum temperature last night 101.5. Septic workup reviewed, so far blood cultures negative, and aerobic culture preliminary report no growth yet. Aorta runoff normal examination, no significant vascular abnormalities identified, no significant peripheral vascular disease, runoff is preserved bilaterally. In the MRI to the right foot. Continue broad-spectrum IV antibiotics. Continue dressing changes to the right foot per Podiatry recommendations. 09/27 patient is seen and examined at bedside, case discussed with the RN, no acute events overnight, during my visit patient comfortably in bed, alert oriented x3, hemodynamically stable, results of MRI to the right foot with po ssible osteomyelitis, involving the 3rd distal phalanx. Discussed with the patient. REVIEW OF SYSTEMS a 14 point ROS obtained all relevant positive documented otherwise ROS negative PHYSICAL EXAM GENERAL APPEARANCE: The patient is awake, alert, and oriented, in no acute cardiopulmonary distress. NEUROLOGICAL: Cranial nerves II-XII grossly intact. Motor is 5/5 in bilateral upper and lower extremities proximal to distal. No sensory deficits. HEENT: Face is symmetric. Pupils are equal and reactive. Extraocular movements are intact. NECK: Supple. No JVD. No thyromegaly. No submental, submandibular, pre- /postauricular, occipital or supraclavicular lymphadenopathy. CHEST: Normal chest expansion. No Telemetry. LUNGS: Absence of any rales, rhonchi or any wheezing. CARDIOVASCULAR: Regular. S1 and S2 normal. No appreciable rubs, murmurs or gallops. ABDOMEN: Soft, nontender, and nondistended. There is no rebound, voluntary guarding, or rigidity. : Deferred. No Best. EXTREMITIES: Non-edematous and not cyanotic. No clubbing. Good capillary refill. Right foot 3rd toe swollen erythematous. Amputation to the right great toe. Palpable pedal pulses. SKIN: No skin breakdown. Vital Signs (last 8hr) Date Time Temp Pulse Resp B/P (MAP) Pulse Ox O2 Delivery O2 Flow Rate FiO2 09/27/24 07:36 98.8 82 18 120/65 99 Room Air 09/27/24 04:26 102.7 104 18 160/78 94 Room Air 09/27/24 03:23 102.7 LABS: Laboratory: Test 09/27/24 05:20 09/27/24 03:56 Range/Units Whole Blood Glucose 92 70-110 MG/DL White Blood Count 11.1 H 4.8-10.8 K/uL Red Blood Count 3.39 L 4.00-5.50 MIL/uL Hemoglobin 10.4 L 12.0-16.0 g/dL Hematocrit 31.0 L 36-48 % Mean Corpuscular Volume 91.4 79-99 fL Mean Corpuscular Hemoglobin 30.7 27.0-33.0 pg Mean Corpuscular Hemoglobin Concent 33.5 32.0-36.0 g/dL Red Cell Distribution Width 13.0 11.0-15.5 % Platelet Count 231 130-400 K/uL Mean Platelet Volume 9.7 7.5-10.5 fL Nucleated Red Blood Cells 0.0 0.0-0.19 % Sodium Level 140 136-145 mmol/L Potassium Level 3.5 3.5-5.1 mmol/L Chloride Level 102 101-111 mmol/L Carbon Dioxide Level 31 21-32 mmol/L Blood Urea Nitrogen 9 7-18 mg/dL Creatinine 0.7 0.5-1.0 mg/dL Glomerular Filtration Rate Calc 100 >90 mL/min Random Glucose 88 70-105 mg/dL Total Calcium 8.2 L 8.5-10.1 mg/dL Magnesium Level 1.60 L 1.80-2.40 mg/dL Total Bilirubin 0.2 0.2-1.0 mg/dL Aspartate Amino Transf (AST/SGOT) 24 10-37 U/L Alanine Aminotransferase (ALT/SGPT) 24 12-78 U/L Alkaline Phosphatase 75 50-136 U/L Total Protein 6.7 6.0-8.3 g/dL Albumin 2.1 L 3.5-5.0 g/dL Vancomycin Level Trough 19.4 # 10.0-20.0 UG/ML Current Medications Medications (Trade) Dose Ordered Sig/David Route PRN Reason Start Time Stop Time Status Last Admin Dose Admin Acetaminophen (TYLenol 325MG TAB) 650 mg Q4H PRN PO TEMPERATURE GREATER THAN 101.5 09/23/24 17:00 10/23/24 16:59 09/27/24 03:23 650 MG Acetaminophen/ Codeine Phosphate (TYLenol-coDEINE TAB) 1 tab Q4H PRN PO MODERATE PAIN (4-6) 09/23/24 17:00 10/23/24 16:59 Aspirin (Aspirin 81mg Ec Tab) 81 mg DAILY PO 09/25/24 09:00 10/25/24 08:59 09/27/24 08:33 81 MG Atorvastatin Calcium (LIPItor 40MG) 80 mg DAILY PO 09/25/24 09:00 10/25/24 08:59 09/27/24 08:35 80 MG Bacitracin (Bacitracin 28.4gm) 1 PATRICK AD DAILY TP 09/25/24 09:00 10/25/24 08:59 09/27/24 08:43 1 GM Clopidogrel Bisulfate (plaVIX 75MG) 75 mg DAILY PO 09/25/24 09:00 10/25/24 08:59 09/27/24 08:35 75 MG Enoxaparin Sodium (Lovenox) 40 mg DAILY SQ 4/14/25 09:00 10/25/24 08:59 09/27/24 08:33 40 MG Fluoxetine HCl (FLUoxetine HCL 20 MG CAPSULE) 20 mg DAILY PO 09/25/24 09:00 10/25/24 08:59 09/27/24 08:33 20 MG Gabapentin (NEURontin 100 mg CAP) 100 mg TID PO 09/24/24 14:00 10/24/24 13:59 09/27/24 08:35 100 MG Glipizide (GLUCOtrol 5MG TABLET) 5 mg DAILY PO 09/25/24 09:00 10/25/24 08:59 09/27/24 08:35 5 MG Hydralazine HCl (APRESOLine 20MG INJ) 5 mg Q4H PRN IV ADMINISTER FOR SBP > 160 09/23/24 17:00 10/23/24 16:59 Insulin Human Isoph/Insulin Regular (humuLIN 70-30 VIAL) 40 unit BIDAC SQ 09/24/24 16:30 10/24/24 16:29 09/27/24 08:30 40 UNIT Insulin Human Regular (humuLIN R 100 UNIT/ML 3ML) INSULIN SLIDING SCAL... ACHS SQ 09/23/24 21:00 10/23/24 20:59 09/25/24 21:17 4 UNIT Lactulose (Constulose 20gm/ 30ml Udcup) 20 gm BID PRN PO CONSTIPATION 09/23/24 17:00 10/23/24 16:59 Lisinopril (Prinivil 20mg) 20 mg DAILY PO 09/25/24 09:00 10/25/24 08:59 09/27/24 08:37 20 MG Magnesium Sulfate 50 ml @ 0 mls/hr PROTOCOL IV 09/24/24 11:00 10/24/24 10:59 09/27/24 05:39 25 MLS/HR Magnesium Sulfate 50 ml @ 0 mls/hr PROTOCOL PRN IV low mag level 09/23/24 17:00 09/24/24 10:58 DC Ondansetron HCl (zoFRAN 4MG INJ) 4 mg Q6H PRN IVP NAUSEA/VOMITING 09/23/24 17:00 10/23/24 16:59 Pharmacy Profile Note (Pharmacy Communication) 1 each ONCE MISC 09/23/24 17:30 09/24/24 07:32 DC Piperacillin Sod/ Tazobactam Sod (Zosyn 3.375gm+NS 50ml) 3.375 gm Q8H IV 09/23/24 16:30 10/03/24 16:29 09/27/24 08:32 3.375 GM Potassium Chloride 100 ml @ 100 mls/hr AD PRN IV POTASSIUM PROTOCOL 09/23/24 17:00 10/23/24 16:59 09/26/24 04:45 100 MLS/HR Potassium Chloride (K-Dur/Klor-Con 20meq) 20 meq AD PRN PO POTASSIUM PROTOCOL 09/23/24 17:00 10/23/24 16:59 09/27/24 05:38 20 MEQ Potassium Chloride (KCl 10% Elixir 20meq/15ml) 20 meq AD PRN PO POTASSIUM PROTOCOL 09/23/24 17:00 10/23/24 16:59 Sodium Chloride 1,000 ml @ 75 mls/hr [id number] IV 09/23/24 17:00 10/23/24 16:59 09/27/24 00:49 75 MLS/HR Vancomycin HCl (Vancomycin 1g/ 250ml Kit) 1 gm Q12H IV 09/23/24 16:30 09/25/24 05:02 DC 09/25/24 04:37 1 GM Vancomycin HCl (Vancomycin 1g/ 250ml Kit) 1 gm Q8H IV 09/25/24 12:30 10/05/24 12:29 09/27/24 05:47 1 GM DIAGNOSTICS / RADIOLOGY: [ ] MRI RIGHT MID AND FOREFOOT WITHOUT AND WITH CONTRAST INDICATION: Evaluate for osteomyelitis COMPARISON: None TECHNIQUE: Long and short axis fat and water weighted sequences were obtained through the right mid and forefoot before and after the administration of 12 mL of Clariscan contrast material without adverse effect. FINDINGS: Nominal coalescent low T1 signal encroaches upon the tip of the third distal phalanx, and nominal subcortical reactive marrow edema may be present at the same level. Amputation of the great toe phalanges. No evidence for periosteal reaction, cortical erosive changes, or any abnormal subperiosteal bone resorption. No high-grade ligamentous or tendinous abnormality detected. Midfoot alignment is well maintained, and Lisfranc ligament is intact. No significant degenerative joint disease identified. No evidence for sesamoiditis, sesamoid dysplasia, or sesamoid migration. No abnormal soft tissue mass, ganglion, or Cr's neuroma identified. No evidence for muscle atrophy, fatty infiltration, or denervation myoedema. No abnormal enhancement noted. No evidence for fracture. IMPRESSION: Findings suggesting focal third distal phalangeal tuft osteitis or very early osteomyelitis, without abscess. ASSESSMENT: Abscess cellulitis 3rd toe right foot diabetic foot infection, POA Status post I&D 09/24/2024 Suspecting osteomyelitis POA Leukocytosis POA DM with Hyperglycemia POA Peripheral neuropathy POA PAD with 50-80% stenosis proximal right SFA and proximal right popliteal artery POA Medical noncompliance POA Possible osteomyelitis focal the 3rd distal phalanx right foot. PLAN: Patient remains admitted to the medical floor Continue the patient on broad-spectrum IV antibiotics, we will request Infectious Disease consultation, we will follow input and recommendations. We w ill reconsult Podiatry, follow input and recommendation. Patient may need amputation however we will defer decision to buy boat operator. Continue dressing changes to the right foot per Podiatry recommendations. NEURO: Minimize central acting medications as possible. Fall Precautions. Well lighted room through the day and minimize interruptions through the night to prevent acute delirium. PULMONARY: Supplemental 02 as needed BiPAP as necessary, for respiratory distress Titrate Fio2 to keep Spo2 > or = 90% DuoNebs and CPT as needed IS hourly while awake for pulmonary hygiene prn Out of bed to chair as tolerated Maintain aspiration precautions at all times CARDIOVASCULAR: Follow hemodynamics. Vital signs per facility protocol GI & NUTRITION: Continue nutritional support Aspirations precautions Prokinetic agents and laxatives as needed KIDNEYS & ELECTROLYTES: Strict monitoring of intake and output Daily weights Avoid nephrotoxic agents Monitor electrolytes and replace as needed Goal urine output of 30mL/hr or 0.5mL/kg/hr Medications to be dosed according to renal function. Avoid contrast if possible ENDOCRINE: Maintain blood glucose between 100-180 at all times. Insulin sliding scale for blood glucose management Hypoglycemia and hyperglycemia protocol in place INFECTIOUS DISEASE: Trend temperature, WBC and procalcitonin level Follow cultures, deescalate antibiotics as soon as possible. Panculture if new onset fever HEMATOLOGY & COAGULATION: Monitor H&H. Keep Hgb > 7 Transfuse 1 unit of PRBC for Hgb < 7 Transfuse 1 pack of platelets of platelets < 20, 000 Watch for any signs and symptoms of bleeding SKIN: Pressure ulcer prevention per facility protocol Specialty mattress as needed ORTHO/REHAB Continue PT/OT PRN: MEDICATIONS Tylenol 650 mg po every 4 hrs for fever zofran 4 mg IV every 6 hrs for n/v Hydralazine 5 mg IV every 4 hrs systolic pressure > 160 bowel regiment: lactulose 20 gm PO BID PRN constipation Supportive measures: Continue GI and DVT prophylaxis Disposition: Pending improvement in clinical condition All questions answered time spent: > 35 min CANDICE LAZAR MD Sep 27, 2024 10:02
--- NOTE | 2024-09-27 10:45 | NUR ---
Patient seen and evaluated. Verbal clarification received from Dr Sampson hobson to put weight on both feet, no WB restrictions. Patient did well with PT however as per podiatry, patient may be going in for surgical removal of toe. Patient will need to be re evaluated after surgery for gait safety and any WB restrictions. Addendum: 09/27/24 at 1307 by SANDOVAL FLANAGAN PT Amended: Links added.
--- NOTE | 2024-09-27 11:25 | NUR ---
Discharge Update: Patient's MRI shows possible early osteomyelitis. Pending Dr. Amanda's recommendations. Pt. is self-pay.
--- NOTE | 2024-09-27 11:53 | NUR ---
SS REFERRAL SW me with pt who states she has insurance coverage thru [employer] thru her son. Pt has card as proof and wants to see if it will cover stay and surgery that is needed. Sw spoke to Ann Financial Counselor will do room visit and speak to pt.
--- NOTE | 2024-09-27 12:07 | PN ---
PROGRESS NOTE Date of Service: Sep 27, 2024 Time of Service: 12:02 SUBJECTIVE: 59 years old female was seen for follow up on diabetic foot infection to 3rd toe right foot the patient MRI was contributory for osteomyelitis of the distal phalanx of the 3rd toe at this time she still continues with cellulitis and infection of the toe increased edema and increased erythema despite of negative cultures patient is still present with changes on this toe. She is on IV antibiotics. REVIEW OF SYSTEMS CONSTITUTIONAL: Denies fever, chills, or fatigue. HEAD/FACE: No signs of trauma. EENT: Denies eye pain, blurred vision, double vision, or light sensitivity. RESPIRATORY: Denies shortness of breath, cough, wheezing CARDIOVASCULAR: Denies chest pain, palpitation, syncope GASTROINTESTINAL/ABDOMINAL: Denies abdominal pain, constipation, diarrhea, nausea or vomiting GENITOURINARY: Denies dysuria or hematuria. MUSCULOSKELETAL: Denies joint pain, tenderness, or trauma. Osteomyelitis of the distal phalanx of the 3rd toe right foot. INTEGUMENTARY: Abscess formation periungual on the 3rd toe right foot. NEUROLOGICAL/PSYCH: Denies anxiety, depression, heat or cold intolerance. PHYSICAL EXAM EYES: Anicteric. Pupils equal and reactive. HENT: No oral thrush seen, moist Oral mucosa NECK: Supple, no JVD or thyromegaly. LUNGS: Good air entry. No rales, no rhonchi. CARDIOVASCULAR: S1, S2 regular. No murmur heard. ABDOMEN: Soft, non tender, bowel sounds present, no organomegaly CENTRAL NERVOUS SYSTEM: Awake, alert, oriented x 3. No focal deficits. SKIN: Swelling pus blister formation periungual area of 3rd toe right foot and distal aspect of the 3rd toe right foot LYMPHATICS: No peripheral lymphadenopathy MUSCULOSKELETAL: No joint swelling, erythema or tenderness. MRI positive for osteomyelitis of 3rd toe right foot. EXTREMITIES: No cyanosis or clubbing BACK: No deformity, no pressure ulcer. GENITOURINARY: No dysuria or hematuria Vital Signs (last 8hr) Date Time Temp Pulse Resp B/P (MAP) Pulse Ox O2 Delivery O2 Flow Rate FiO2 09/27/24 11:25 101.3 95 18 127/61 95 Room Air 09/27/24 07:36 98.8 82 18 120/65 99 Room Air 09/27/24 04:26 102.7 104 18 160/78 94 Room Air LABS: Laboratory: Test 09/27/24 10:47 09/27/24 03:56 Range/Units Whole Blood Glucose 128 H 70-110 MG/DL White Blood Count 11.1 H 4.8-10.8 K/uL Red Blood Count 3.39 L 4.00-5.50 MIL/uL Hemoglobin 10.4 L 12.0-16.0 g/dL Hematocrit 31.0 L 36-48 % Mean Corpuscular Volume 91.4 79-99 fL Mean Corpuscular Hemoglobin 30.7 27.0-33.0 pg Mean Corpuscular Hemoglobin Concent 33.5 32.0-36.0 g/dL Red Cell Distribution Width 13.0 11.0-15.5 % Platelet Count 231 130-400 K/uL Mean Platelet Volume 9.7 7.5-10.5 fL Nucleated Red Blood Cells 0.0 0.0-0.19 % Sodium Level 140 136-145 mmol/L Potassium Level 3.5 3.5-5.1 mmol/L Chloride Level 102 101-111 mmol/L Carbon Dioxide Level 31 21-32 mmol/L Blood Urea Nitrogen 9 7-18 mg/dL Creatinine 0.7 0.5-1.0 mg/dL Glomerular Filtration Rate Calc 100 >90 mL/min Random Glucose 88 70-105 mg/dL Total Calcium 8.2 L 8.5-10.1 mg/dL Magnesium Level 1.60 L 1.80-2.40 mg/dL Total Bilirubin 0.2 0.2-1.0 mg/dL Aspartate Amino Transf (AST/SGOT) 24 10-37 U/L Alanine Aminotransferase (ALT/SGPT) 24 12-78 U/L Alkaline Phosphatase 75 50-136 U/L Total Protein 6.7 6.0-8.3 g/dL Albumin 2.1 L 3.5-5.0 g/dL Vancomycin Level Trough 19.4 # 10.0-20.0 UG/ML DIAGNOSTICS / RADIOLOGY: MRI contributory for osteomyelitis 3rd toe right foot. ASSESSMENT: Abscess cellulitis 3rd toe right foot diabetic foot infection Osteomyelitis 3rd toe right foot. PLAN: At this time treatment options were explained to the patient most likely we will recommend amputation of the 3rd toe she may have to continue long-term antibiotic therapy. Continue local wound care at this time in the meanwhile. Continue physical therapy therapy. Patient we will be working on the social work assistant for insurance coverage. We will revisit this week to allow patient to make a decision regarding the surgery. ALIE GOOD DPM Sep 27, 2024 12:07
--- NOTE | 2024-09-27 19:36 | PN ---
INFECTIOUS DISEASE FOLLOWUP NOTE DATE OF SERVICE: 09/27/2024 SUBJECTIVE: The patient is seen and examined at bedside today. He has some fever despite multiple broad-spectrum antibiotic. No cough, no hemoptysis or pleuritic pain. Denied nausea, vomiting or diarrhea. No abdominal pain. No rashes or itchiness. No bleeding tendency. No dysuria or hematuria. Appetite is good. PHYSICAL EXAMINATION: VITAL SIGNS: Temperature 100.6. EYES: No icterus. Pupils equal and reactive. HENT: No oral thrush seen. Moist oral mucosa. NECK: Supple. No JVD or thyromegaly. LUNGS: Good air entry. No rales. No rhonchi. CARDIOVASCULAR: S1, S2 regular. No murmur heard. ABDOMEN: Full, soft, nontender. Bowel sound is present. CENTRAL NERVOUS SYSTEM: Awake, alert, oriented x 3. No focal deficits. SKIN: No rashes, no itchiness. LYMPHATIC: No peripheral lymphadenopathy. BACK: No deformity. No pressure ulcer. EXTREMITIES: Ulcer with necrosis involving distal phalanx of the left third toe. No purulent drainage. LABORATORY DATA: Left foot wound culture pending. RADIOLOGY: MRI of the left foot shows left third toe osteomyelitis. ASSESSMENT: A 59-year-old female admitted with fever, left third toe pain, swelling and redness. Current problems include: * Sepsis. * Diabetic foot ulcer. * Left third toe osteomyelitis. PLAN: * Follow up cultures. * Continue Zosyn. * Continue vancomycin. * Continue wound care. * Continue pain management. * Continue antidiabetic. * The patient will be followed up closely. TID: [id number] RECEIPT: [id number]
[2024-09-28] VITALS (8 sets, daily range): BP systolic 129–140; BP diastolic 66–76; PULSE 84–99; RESP 17–19; TEMP 97.7–101.7; O2SAT 97–98
[2024-09-28 03:39] LABS: HEMATOCRIT 29.8 % (36-48); MEAN CORPUSCULAR HEMOGLOBIN 30.6 pg (27.0-33.0); MEAN CORPUSCULAR HGB CONC 32.6 g/dL (32.0-36.0); RED BLOOD CELL COUNT(AUTO) 3.17 MIL/uL (4.00-5.50); RED CELL DISTRIBUTION WIDTH 13.1 % (11.0-15.5); WHITE BLOOD COUNT (AUTO) 11.5 K/uL (4.8-10.8)
[2024-09-28 04:25] LABS: ALBUMIN 1.9 g/dL (3.5-5.0); BILIRUBIN,TOTAL 0.2 mg/dL (0.2-1.0); CREATININE 0.7 mg/dL (0.5-1.0); MAGNESIUM 1.9 mg/dL (1.80-2.40); POTASSIUM 3.8 mmol/L (3.5-5.1); TOTAL PROTEIN, SERUM 6.3 g/dL (6.0-8.3); VANCOMYCIN TROUGH 19.5 UG/ML (10.0-20.0)
--- NOTE | 2024-09-28 12:14 | PN ---
[facility] PROGRESS NOTE Date of Service: Sep 28, 2024 Time of Service: 12:11 SUBJECTIVE: This is a 59-year-old presented in ED with concern of her right 3rd toe swelling and redness and decided to come to ED for further evaluation. Onset for several days. Patient reported no injury to foot. Patient reported she has peripheral neuropathy. Noted cellulitis and discoloration of 3rd toe no drainage. She denied fever chills. Patient admitted to the medical floor for further evaluation and medical management. X-ray of the right foot was done, no evidence for fracture or subluxation. Arterial Doppler done, 50-80% stenosis of the proximal right SFA and proximal right popliteal artery, monophasic flow of the bilateral distal anterior tibial arteries as well as along the bilateral dorsalis pedis. Patient remains hemodynamically stable, afebrile, saturating normal on room air, WBC trending down 12.6. Magnesium 1.7. Patient is currently getting IV antibiotics during my visit. 09/25 patient is seen and examined at bedside, case discussed with the RN, no acute events overnight, hemodynamically stable. Patient evaluated by direct entry midwife yesterday, I and D performed at bedside. We will continue with current pain medication, IV antibiotics, dressing changes. Patient evaluated by strategy lead, patient has been. Plavix 75 mg p.o. daily added. Follow results of MRI of the right foot, if osteomyelitis confirmed, may need to consider invasive Angiography versus CTA runoff. 09/26 patient is seen and examined at bedside, patient is still spiking fever, she is alert oriented x3, hemodynamically stable, maximum temperature last night 101.5. Septic workup reviewed, so far blood cultures negative, and aerobic culture preliminary report no growth yet. Aorta runoff normal examination, no significant vascular abnormalities identified, no significant peripheral vascular disease, runoff is preserved bilaterally. In the MRI to the right foot. Continue broad-spectrum IV antibiotics. Continue dressing changes to the right foot per Podiatry recommendations. 09/27 patient is seen and examined at bedside, case discussed with the RN, no acute events overnight, during my visit patient comfortably in bed, alert oriented x3, hemodynamically stable, results of MRI to the right foot with po ssible osteomyelitis, involving the 3rd distal phalanx. Discussed with the patient. 09/28 patient is seen and examined at bedside, case discussed with the RN, no acute events overnight, patient getting IV antibiotics at the time of my visit, getting good pain control with current medical management. No chest pain, no nausea, no vomiting, patient had slight temperature 100.2 last night. Persistent leukocytosis 11.5. Hemoglobin 9.7, hematocrit 29.8. Patient evaluated by direct entry midwife, patient most likely we will require amputation of the 3rd toe continue local wound care. REVIEW OF SYSTEMS a 14 point ROS obtained all relevant positive documented otherwise ROS negative PHYSICAL EXAM GENERAL APPEARANCE: The patient is awake, alert, and oriented, in no acute cardiopulmonary distress. NEUROLOGICAL: Cranial nerves II-XII grossly intact. Motor is 5/5 in bilateral upper and lower extremities proximal to distal. No sensory deficits. HEENT: Face is symmetric. Pupils are equal and reactive. Extraocular movements are intact. NECK: Supple. No JVD. No thyromegaly. No submental, submandibular, pre- /postauricular, occipital or supraclavicular lymphadenopathy. CHEST: Normal chest expansion. No Telemetry. LUNGS: Absence of any rales, rhonchi or any wheezing. CARDIOVASCULAR: Regular. S1 and S2 normal. No appreciable rubs, murmurs or gallops. ABDOMEN: Soft, nontender, and nondistended. There is no rebound, voluntary guarding, or rigidity. : Deferred. No Best. EXTREMITIES: Non-edematous and not cyanotic. No clubbing. Good capillary refill. Right foot 3rd toe swollen erythematous. Amputation to the right great toe. Palpable pedal pulses. SKIN: No skin breakdown. Vital Signs (last 8hr) Date Time Temp Pulse Resp B/P (MAP) Pulse Ox O2 Delivery O2 Flow Rate FiO2 09/28/24 11:13 98.6 93 18 139/76 96 Room Air 09/28/24 07:37 98.6 84 18 138/74 98 Room Air LABS: Laboratory: Test 09/28/24 10:57 09/28/24 03:29 Range/Units Whole Blood Glucose 150 #H 70-110 MG/DL White Blood Count 11.5 H 4.8-10.8 K/uL Red Blood Count 3.17 L 4.00-5.50 MIL/uL Hemoglobin 9.7 L 12.0-16.0 g/dL Hematocrit 29.8 L 36-48 % Mean Corpuscular Volume 94.0 79-99 fL Mean Corpuscular Hemoglobin 30.6 27.0-33.0 pg Mean Corpuscular Hemoglobin Concent 32.6 32.0-36.0 g/dL Red Cell Distribution Width 13.1 11.0-15.5 % Platelet Count 214 130-400 K/uL Mean Platelet Volume 9.5 7.5-10.5 fL Nucleated Red Blood Cells 0.0 0.0-0.19 % Sodium Level 140 136-145 mmol/L Potassium Level 3.8 3.5-5.1 mmol/L Chloride Level 104 101-111 mmol/L Carbon Dioxide Level 31 21-32 mmol/L Blood Urea Nitrogen 11 7-18 mg/dL Creatinine 0.7 0.5-1.0 mg/dL Glomerular Filtration Rate Calc 100 >90 mL/min Random Glucose 85 70-105 mg/dL Total Calcium 8.2 L 8.5-10.1 mg/dL Magnesium Level 1.90 1.80-2.40 mg/dL Total Bilirubin 0.2 0.2-1.0 mg/dL Aspartate Amino Transf (AST/SGOT) 30 10-37 U/L Alanine Aminotransferase (ALT/SGPT) 24 12-78 U/L Alkaline Phosphatase 65 50-136 U/L Total Protein 6.3 6.0-8.3 g/dL Albumin 1.9 L 3.5-5.0 g/dL Vancomycin Level Trough 19.5 10.0-20.0 UG/ML Current Medications Medications (Trade) Dose Ordered Sig/David Route PRN Reason Start Time Stop Time Status Last Admin Dose Admin Acetaminophen (TYLenol 325MG TAB) 650 mg Q4H PRN PO TEMPERATURE GREATER THAN 101.5 09/23/24 17:00 10/23/24 16:59 09/27/24 16:10 650 MG Acetaminophen/ Codeine Phosphate (TYLenol-coDEINE TAB) 1 tab Q4H PRN PO MODERATE PAIN (4-6) 09/23/24 17:00 10/23/24 16:59 Aspirin (Aspirin 81mg Ec Tab) 81 mg DAILY PO 09/25/24 09:00 10/25/24 08:59 09/28/24 09:06 81 MG Atorvastatin Calcium (LIPItor 40MG) 80 mg DAILY PO 09/25/24 09:00 10/25/24 08:59 09/28/24 09:06 80 MG Bacitracin (Bacitracin 28.4gm) 1 PATRICK AD DAILY TP 09/25/24 09:00 10/25/24 08:59 09/28/24 09:36 1 GM Clopidogrel Bisulfate (plaVIX 75MG) 75 mg DAILY PO 09/25/24 09:00 10/25/24 08:59 09/28/24 09:06 75 MG Enoxaparin Sodium (Lovenox) 40 mg DAILY SQ 09/25/24 09:00 10/25/24 08:59 09/28/24 09:07 40 MG Fluoxetine HCl (FLUoxetine HCL 20 MG CAPSULE) 20 mg DAILY PO 09/25/24 09:00 10/25/24 08:59 09/28/24 09:06 20 MG Gabapentin (NEURontin 100 mg CAP) 100 mg TID PO 09/24/24 14:00 10/24/24 13:59 09/28/24 09:06 100 MG Glipizide (GLUCOtrol 5MG TABLET) 5 mg DAILY PO 09/25/24 09:00 10/25/24 08:59 09/28/24 09:06 5 MG Hydralazine HCl (APRESOLine 20MG INJ) 5 mg Q4H PRN IV ADMINISTER FOR SBP > 160 09/23/24 17:00 10/23/24 16:59 Insulin Human Isoph/Insulin Regular (humuLIN 70-30 VIAL) 40 unit BIDAC SQ 09/24/24 16:30 10/24/24 16:29 09/27/24 17:13 40 UNIT Insulin Human Regular (humuLIN R 100 UNIT/ML 3ML) INSULIN SLIDING SCAL... ACHS SQ 09/23/24 21:00 10/23/24 20:59 09/25/24 21:17 4 UNIT Lactulose (Constulose 20gm/ 30ml Udcup) 20 gm BID PRN PO CONSTIPATION 09/23/24 17:00 10/23/24 16:59 Lisinopril (Prinivil 20mg) 20 mg DAILY PO 09/25/24 09:00 10/25/24 08:59 09/28/24 09:06 20 MG Magnesium Sulfate 50 ml @ 0 mls/hr PROTOCOL IV 09/24/24 11:00 10/24/24 10:59 09/27/24 05:39 25 MLS/HR Magnesium Sulfate 50 ml @ 0 mls/hr PROTOCOL PRN IV low mag level 09/23/24 17:00 09/24/24 10:58 DC Ondansetron HCl (zoFRAN 4MG INJ) 4 mg Q6H PRN IVP NAUSEA/VOMITING 09/23/24 17:00 10/23/24 16:59 Pharmacy Profile Note (Pharmacy Communication) 1 each ONCE MISC 09/23/24 17:30 09/24/24 07:32 DC Piperacillin Sod/ Tazobactam Sod (Zosyn 3.375gm+NS 50ml) 3.375 gm Q8H IV 09/23/24 16:30 10/03/24 16:29 09/28/24 08:45 3.375 GM Potassium Chloride 100 ml @ 100 mls/hr AD PRN IV POTASSIUM PROTOCOL 09/23/24 17:00 10/23/24 16:59 09/26/24 04:45 100 MLS/HR Potassium Chloride (K-Dur/Klor-Con 20meq) 20 meq AD PRN PO POTASSIUM PROTOCOL 09/23/24 17:00 10/23/24 16:59 09/27/24 05:38 20 MEQ Potassium Chloride (KCl 10% Elixir 20meq/15ml) 20 meq AD PRN PO POTASSIUM PROTOCOL 09/23/24 17:00 10/23/24 16:59 Sodium Chloride 1,000 ml @ 75 mls/hr [id number] IV 09/23/24 17:00 10/23/24 16:59 09/28/24 03:47 75 MLS/HR Vancomycin HCl (Vancomycin 1g/ 250ml Kit) 1 gm Q12H IV 09/23/24 16:30 09/25/24 05:02 DC 09/25/24 04:37 1 GM Vancomycin HCl (Vancomycin 1g/ 250ml Kit) 1 gm Q8H IV 09/25/24 12:30 10/05/24 12:29 09/28/24 04:35 1 GM DIAGNOSTICS / RADIOLOGY: [ ] ASSESSMENT: Abscess cellulitis 3rd toe right foot diabetic foot infection, POA Status post I&D 09/24/2024 Suspecting osteomyelitis POA Leukocytosis POA DM with Hyperglycemia POA Peripheral neuropathy POA PAD with 50-80% stenosis proximal right SFA and proximal right popliteal artery POA Medical noncompliance POA Possible osteomyelitis focal the 3rd distal phalanx right foot. PLAN: Patient remains admitted to the medical floor Continue the patient on broad-spectrum IV antibiotics, patient DCC input noted and appreciated. Patient evaluated by direct entry midwife, MRI reviewed, patient most likely we will need amputation of the 3rd toe. Continue local wound care, continue with physical therapy. Patient will be working with the social research assistant for insurance coverage. Podiatry to revisit this week to allow patient to make decision regarding surgical intervention. Continue current pain medication with the adjustment as needed. NEURO: Minimize central acting medications as possible. Fall Precautions. Well lighted room through the day and minimize interruptions through the night to prevent acute delirium. PULMONARY: Supplemental 02 as needed BiPAP as necessary, for respiratory distress Titrate Fio2 to keep Spo2 > or = 90% DuoNebs and CPT as needed IS hourly while awake for pulmonary hygiene prn Out of bed to chair as tolerated Maintain aspiration precautions at all times CARDIOVASCULAR: Follow hemodynamics. Vital signs per facility protocol GI & NUTRITION: Continue nutritional support Aspirations precautions Prokinetic agents and laxatives as needed KIDNEYS & ELECTROLYTES: Strict monitoring of intake and output Daily weights Avoid nephrotoxic agents Monitor electrolytes and replace as needed Goal urine output of 30mL/hr or 0.5mL/kg/hr Medications to be dosed according to renal function. Avoid contrast if possible ENDOCRINE: Maintain blood glucose between 100-180 at all times. Insulin sliding scale for blood glucose management Hypoglycemia and hyperglycemia protocol in place INFECTIOUS DISEASE: Trend temperature, WBC and procalcitonin level Follow cultures, deescalate antibiotics as soon as possible. Panculture if new onset fever HEMATOLOGY & COAGULATION: Monitor H&H. Keep Hgb > 7 Transfuse 1 unit of PRBC for Hgb < 7 Transfuse 1 pack of platelets of platelets < 20, 000 Watch for any signs and symptoms of bleeding SKIN: Pressure ulcer prevention per facility protocol Specialty mattress as needed ORTHO/REHAB Continue PT/OT PRN: MEDICATIONS Tylenol 650 mg po every 4 hrs for fever zofran 4 mg IV every 6 hrs for n/v Hydralazine 5 mg IV every 4 hrs systolic pressure > 160 bowel regiment: lactulose 20 gm PO BID PRN constipation Supportive measures: Continue GI and DVT prophylaxis Disposition: Pending improvement in clinical condition All questions answered time spent: > 35 min CANDICE LAZAR MD Sep 28, 2024 12:14
--- NOTE | 2024-09-28 23:13 | PN ---
INFECTIOUS DISEASE PROGRESS NOTE Date of Service: Sep 28, 2024 SUBJECTIVE: The right 3rd toe final wound culture results came back positive for methicillin sensitive Staphylococcus aureus and strep agalactiae group B and patient has been started on cefazolin 2 g IV every 8 hrs. No fever, temperature is 98.8 and a WBC of 9.7. PHYSICAL EXAM EYES: Anicteric. Pupils equal and reactive. HENT: No oral thrush seen, moist Oral mucosa NECK: Supple, no JVD or thyromegaly. LUNGS: Good air entry. No rales, no rhonchi. CARDIOVASCULAR: S1, S2 regular. No murmur heard. ABDOMEN: Soft, non tender, bowel sounds present, no organomegaly CENTRAL NERVOUS SYSTEM: Awake, alert, oriented x 3. No focal deficits. SKIN: No rashes, no swelling. LYMPHATICS: No peripheral lymphadenopathy MUSCULOSKELETAL: No joint swelling, erythema or tenderness. EXTREMITIES: No cyanosis or clubbing BACK: No deformity, no pressure ulcer. GENITOURINARY: No dysuria or hematuria Vital Sign (Last 12 Hours) 09/28/24 09/28/24 09/28/24 11:13 16:03 20:39 Temp 98.6 100.2 101.7 Pulse 93 95 99 Resp 18 18 19 B/P (MAP) 139/76 136/66 140/69 Pulse Ox 96 95 95 O2 Delivery Room Air Room Air Room Air Intake & Output (last 24hrs) 09/27/24 09/27/24 09/28/24 15:00 23:00 07:00 Intake Total 900 ml 260.0 ml 660.0 ml Balance 900 ml 260.0 ml 660.0 ml LABS: Laboratory: Test 09/28/24 19:14 09/28/24 03:29 Range/Units Whole Blood Glucose 159 H 70-110 MG/DL White Blood Count 11.5 H 4.8-10.8 K/uL Red Blood Count 3.17 L 4.00-5.50 MIL/uL Hemoglobin 9.7 L 12.0-16.0 g/dL Hematocrit 29.8 L 36-48 % Mean Corpuscular Volume 94.0 79-99 fL Mean Corpuscular Hemoglobin 30.6 27.0-33.0 pg Mean Corpuscular Hemoglobin Concent 32.6 32.0-36.0 g/dL Red Cell Distribution Width 13.1 11.0-15.5 % Platelet Count 214 130-400 K/uL Mean Platelet Volume 9.5 7.5-10.5 fL Nucleated Red Blood Cells 0.0 0.0-0.19 % Sodium Level 140 136-145 mmol/L Potassium Level 3.8 3.5-5.1 mmol/L Chloride Level 104 101-111 mmol/L Carbon Dioxide Level 31 21-32 mmol/L Blood Urea Nitrogen 11 7-18 mg/dL Creatinine 0.7 0.5-1.0 mg/dL Glomerular Filtration Rate Calc 100 >90 mL/min Random Glucose 85 70-105 mg/dL Total Calcium 8.2 L 8.5-10.1 mg/dL Magnesium Level 1.90 1.80-2.40 mg/dL Total Bilirubin 0.2 0.2-1.0 mg/dL Aspartate Amino Transf (AST/SGOT) 30 10-37 U/L Alanine Aminotransferase (ALT/SGPT) 24 12-78 U/L Alkaline Phosphatase 65 50-136 U/L Total Protein 6.3 6.0-8.3 g/dL Albumin 1.9 L 3.5-5.0 g/dL Vancomycin Level Trough 19.5 10.0-20.0 UG/ML ASSESSMENT: Right 3rd toe diabetic foot ulcer. Right 3rd toe osteomyelitis. Right foot cellulitis. Infection with methicillin sensitive Staphylococcus aureus. Sepsis. History of right great toe amputation. Diabetes mellitus. PLAN: Continue cefazolin 2 g IV every 8 hours. Continue monitoring glucose levels. Continue wound care. Continue pain management. Continue antiplatelets. We will monitor electrolytes. This case was reviewed and discussed with my supervising physician and the above assessment and plan was formulated and agreed upon. ATTESTATION BY PHYSICIAN I have seen and examined the patient. I reviewed the documentation, medical decision making, and treatment plan as noted by the mid-level provider above. I agree with the findings and plan of care. LUIS ANTONIO SERRANO MD, [facility] Sep 28, 2024 23:13
[2024-09-29] VITALS (8 sets, daily range): BP systolic 121–170; BP diastolic 63–83; PULSE 83–92; RESP 17–24; TEMP 98.4–99; O2SAT 97
[2024-09-29 03:56] LABS: ADD UA MICROSCOPIC YES; APPEARANCE,URINE CLEAR (CLEAR); BILIRUBIN,URINE NEGATIVE (NEGATIVE); COLOR,URINE COLORLESS (YELLOW); GLUCOSE, URINE (UA) 30 mg/dL (NEGATIVE); KETONES,URINE NEGATIVE (NEGATIVE); LEUKOCYTE ESTERASE ,URINE NEGATIVE Leu/uL (NEGATIVE); NITRATE,URINE NEGATIVE (NEGATIVE); OCCULT BLOOD,URINE NEGATIVE (NEGATIVE); PROTEIN,URINE NEGATIVE (NEGATIVE); UROBILINOGEN,URINE 0.2 mg/dL (0.2-1.0)
[2024-09-29 04:03] LABS: RBC,URINE 0-1 /HPF (0-1); WBC,URINE 0-1 /HPF (0-1)
--- NOTE | 2024-09-29 10:01 | PN ---
[facility] PROGRESS NOTE Date of Service: Sep 29, 2024 Time of Service: 09:58 SUBJECTIVE: This is a 59-year-old presented in ED with concern of her right 3rd toe swelling and redness and decided to come to ED for further evaluation. Onset for several days. Patient reported no injury to foot. Patient reported she has peripheral neuropathy. Noted cellulitis and discoloration of 3rd toe no drainage. She denied fever chills. Patient admitted to the medical floor for further evaluation and medical management. X-ray of the right foot was done, no evidence for fracture or subluxation. Arterial Doppler done, 50-80% stenosis of the proximal right SFA and proximal right popliteal artery, monophasic flow of the bilateral distal anterior tibial arteries as well as along the bilateral dorsalis pedis. Patient remains hemodynamically stable, afebrile, saturating normal on room air, WBC trending down 12.6. Magnesium 1.7. Patient is currently getting IV antibiotics during my visit. 09/25 patient is seen and examined at bedside, case discussed with the RN, no acute events overnight, hemodynamically stable. Patient evaluated by health policy analyst yesterday, I and D performed at bedside. We will continue with current pain medication, IV antibiotics, dressing changes. Patient evaluated by progress worker, patient has been. Plavix 75 mg p.o. daily added. Follow results of MRI of the right foot, if osteomyelitis confirmed, may need to consider invasive Angiography versus CTA runoff. 09/26 patient is seen and examined at bedside, patient is still spiking fever, she is alert oriented x3, hemodynamically stable, maximum temperature last night 101.5. Septic workup reviewed, so far blood cultures negative, and aerobic culture preliminary report no growth yet. Aorta runoff normal examination, no significant vascular abnormalities identified, no significant peripheral vascular disease, runoff is preserved bilaterally. In the MRI to the right foot. Continue broad-spectrum IV antibiotics. Continue dressing changes to the right foot per Podiatry recommendations. 09/27 patient is seen and examined at bedside, case discussed with the RN, no acute events overnight, during my visit patient comfortably in bed, alert oriented x3, hemodynamically stable, results of MRI to the right foot with po ssible osteomyelitis, involving the 3rd distal phalanx. Discussed with the patient. 09/28 patient is seen and examined at bedside, case discussed with the RN, no acute events overnight, patient getting IV antibiotics at the time of my visit, getting good pain control with current medical management. No chest pain, no nausea, no vomiting, patient had slight temperature 100.2 last night. Persistent leukocytosis 11.5. Hemoglobin 9.7, hematocrit 29.8. Patient evaluated by health policy analyst, patient most likely we will require amputation of the 3rd toe continue local wound care. 09/23 patient is seen and examined at bedside, case discussed with the RN, no acute events overnight, patient getting IV antibiotics at the time of my visit, getting good pain control with current medical management. Patient is still spiking fever, last night 101.7. Patient evaluated by health policy analyst, MRI reviewed, patient most likely will need amputation of the 3rd toe. Continue local wound care, continue with physical therapy. Patient will be working with the social organization professor for insurance coverage. Podiatry to revisit this week to allow patient to make decision regarding surgical intervention. REVIEW OF SYSTEMS a 14 point ROS obtained all relevant positive documented otherwise ROS negative PHYSICAL EXAM GENERAL APPEARANCE: The patient is awake, alert, and oriented, in no acute cardiopulmonary distress. NEUROLOGICAL: Cranial nerves II-XII grossly intact. Motor is 5/5 in bilateral upper and lower extremities proximal to distal. No sensory deficits. HEENT: Face is symmetric. Pupils are equal and reactive. Extraocular movements are intact. NECK: Supple. No JVD. No thyromegaly. No submental, submandibular, pre-/postauricular, occipital or supraclavicular lymphadenopathy. CHEST: Normal chest expansion. No Telemetry. LUNGS: Absence of any rales, rhonchi or any wheezing. CARDIOVASCULAR: Regular. S1 and S2 normal. No appreciable rubs, murmurs or gallops. ABDOMEN: Soft, nontender, and nondistended. There is no rebound, voluntary guarding, or rigidity. : Deferred. No Best. EXTREMITIES: Non-edematous and not cyanotic. No clubbing. Good capillary refill. Right foot 3rd toe swollen erythematous. Amputation to the right great toe. Palpable pedal pulses. SKIN: No skin breakdown. Vital Signs (last 8hr) Date Time Temp Pulse Resp B/P (MAP) Pulse Ox O2 Delivery O2 Flow Rate FiO2 09/29/24 08:00 99.0 83 18 143/71 97 Room Air 09/29/24 04:43 98.4 85 19 141/72 96 Room Air LABS: Laboratory: Test 09/29/24 05:24 09/29/24 02:20 09/28/24 03:29 Range/Units Whole Blood Glucose 178 H 70-110 MG/DL Urine Color COLORLESS YELLOW Urine Appearance CLEAR CLEAR Urine pH 6.0 5.0-8.0 Urine Specific [place] 1.007 1.001-1.031 Urine Protein NEGATIVE NEGATIVE mg/dL Urine Glucose (UA) 30 H NEGATIVE mg/dL Urine Ketones NEGATIVE NEGATIVE mg/dL Urine Occult Blood NEGATIVE NEGATIVE Urine Nitrate NEGATIVE NEGATIVE Urine Bilirubin NEGATIVE NEGATIVE mg/dL Urine Urobilinogen 0.2 0.2-1.0 mg/dL Urine Leukocyte Esterase NEGATIVE NEGATIVE Emily/uL Urine RBC 0-1 0-1 /HPF Urine WBC 0-1 0-1 /HPF Urine Bacteria None None Seen /HPF White Blood Count 11.5 H 4.8-10.8 K/uL Red Blood Count 3.17 L 4.00-5.50 MIL/uL Hemoglobin 9.7 L 12.0-16.0 g/dL Hematocrit 29.8 L 36-48 % Mean Corpuscular Volume 94.0 79-99 fL Mean Corpuscular Hemoglobin 30.6 27.0-33.0 pg Mean Corpuscular Hemoglobin Concent 32.6 32.0-36.0 g/dL Red Cell Distribution Width 13.1 11.0-15.5 % Platelet Count 214 130-400 K/uL Mean Platelet Volume 9.5 7.5-10.5 fL Nucleated Red Blood Cells 0.0 0.0-0.19 % Sodium Level 140 136-145 mmol/L Potassium Level 3.8 3.5-5.1 mmol/L Chloride Level 104 101-111 mmol/L Carbon Dioxide Level 31 21-32 mmol/L Blood Urea Nitrogen 11 7-18 mg/dL Creatinine 0.7 0.5-1.0 mg/dL Glomerular Filtration Rate Calc 100 >90 mL/min Random Glucose 85 70-105 mg/dL Total Calcium 8.2 L 8.5-10.1 mg/dL Magnesium Level 1.90 1.80-2.40 mg/dL Total Bilirubin 0.2 0.2-1.0 mg/dL Aspartate Amino Transf (AST/SGOT) 30 10-37 U/L Alanine Aminotransferase (ALT/SGPT) 24 12-78 U/L Alkaline Phosphatase 65 50-136 U/L Total Protein 6.3 6.0-8.3 g/dL Albumin 1.9 L 3.5-5.0 g/dL Vancomycin Level Trough 19.5 10.0-20.0 UG/ML Current Medications Medications (Trade) Dose Ordered Sig/David Route PRN Reason Start Time Stop Time Status Last Admin Dose Admin Acetaminophen (TYLenol 325MG TAB) 650 mg Q4H PRN PO TEMPERATURE GREATER THAN 101.5 09/23/24 17:00 10/23/24 16:59 09/28/24 20:03 650 MG Acetaminophen/ Codeine Phosphate (TYLenol-coDEINE TAB) 1 tab Q4H PRN PO MODERATE PAIN (4-6) 09/23/24 17:00 10/23/24 16:59 Aspirin (Aspirin 81mg Ec Tab) 81 mg DAILY PO 09/25/24 09:00 10/25/24 08:59 09/29/24 08:01 81 MG Atorvastatin Calcium (LIPItor 40MG) 80 mg DAILY PO 09/25/24 09:00 10/25/24 08:59 09/29/24 08:02 80 MG Bacitracin (Bacitracin 28.4gm) 1 PATRICK AD DAILY TP 09/25/24 09:00 10/25/24 08:59 09/28/24 09:36 1 GM Clopidogrel Bisulfate (plaVIX 75MG) 75 mg DAILY PO 09/25/24 09:00 10/25/24 08:59 09/29/24 08:01 75 MG Enoxaparin Sodium (Lovenox) 40 mg DAILY SQ 09/25/24 09:00 10/25/24 08:59 09/29/24 08:03 40 MG Fluoxetine HCl (FLUoxetine HCL 20 MG CAPSULE) 20 mg DAILY PO 09/25/24 09:00 10/25/24 08:59 09/29/24 08:02 20 MG Gabapentin (NEURontin 100 mg CAP) 100 mg TID PO 09/24/24 14:00 10/24/24 13:59 09/29/24 08:22 100 MG Glipizide (GLUCOtrol 5MG TABLET) 5 mg DAILY PO 09/25/24 09:00 10/25/24 08:59 09/29/24 08:02 5 MG Hydralazine HCl (APRESOLine 20MG INJ) 5 mg Q4H PRN IV ADMINISTER FOR SBP > 160 09/23/24 17:00 10/23/24 16:59 Insulin Human Isoph/Insulin Regular (humuLIN 70-30 VIAL) 40 unit BIDAC SQ 09/24/24 16:30 10/24/24 16:29 09/29/24 07:42 40 UNIT Insulin Human Regular (humuLIN R 100 UNIT/ML 3ML) INSULIN SLIDING SCAL... ACHS SQ 09/23/24 21:00 10/23/24 20:59 09/29/24 07:40 4 UNIT Lactulose (Constulose 20gm/ 30ml Udcup) 20 gm BID PRN PO CONSTIPATION 09/23/24 17:00 10/23/24 16:59 Lisinopril (Prinivil 20mg) 20 mg DAILY PO 09/25/24 09:00 10/25/24 08:59 09/29/24 08:02 20 MG Magnesium Sulfate 50 ml @ 0 mls/hr PROTOCOL IV 09/24/24 11:00 10/24/24 10:59 09/27/24 05:39 25 MLS/HR Magnesium Sulfate 50 ml @ 0 mls/hr PROTOCOL PRN IV low mag level 09/23/24 17:00 09/24/24 10:58 DC Ondansetron HCl (zoFRAN 4MG INJ) 4 mg Q6H PRN IVP NAUSEA/VOMITING 09/23/24 17:00 10/23/24 16:59 Pharmacy Profile Note (Pharmacy Communication) 1 each ONCE MISC 09/23/24 17:30 09/24/24 07:32 DC Piperacillin Sod/ Tazobactam Sod (Zosyn 3.375gm+NS 50ml) 3.375 gm Q8H IV 09/23/24 16:30 10/03/24 16:29 09/29/24 08:01 3.375 GM Potassium Chloride 100 ml @ 100 mls/hr AD PRN IV POTASSIUM PROTOCOL 09/23/24 17:00 10/23/24 16:59 09/26/24 04:45 100 MLS/HR Potassium Chloride (K-Dur/Klor-Con 20meq) 20 meq AD PRN PO POTASSIUM PROTOCOL 09/23/24 17:00 10/23/24 16:59 09/27/24 05:38 20 MEQ Potassium Chloride (KCl 10% Elixir 20meq/15ml) 20 meq AD PRN PO POTASSIUM PROTOCOL 09/23/24 17:00 10/23/24 16:59 Sodium Chloride 1,000 ml @ 75 mls/hr [id number] IV 09/23/24 17:00 10/23/24 16:59 09/28/24 22:01 75 MLS/HR Vancomycin HCl (Vancomycin 1g/ 250ml Kit) 1 gm Q12H IV 09/23/24 16:30 09/25/24 05:02 DC 09/25/24 04:37 1 GM Vancomycin HCl (Vancomycin 1g/ 250ml Kit) 1 gm Q8H IV 09/25/24 12:30 10/05/24 12:29 09/29/24 04:37 1 GM DIAGNOSTICS / RADIOLOGY: [ ] ASSESSMENT: Abscess cellulitis 3rd toe right foot diabetic foot infection, POA Status post I&D 09/24/2024 Suspecting osteomyelitis POA Leukocytosis POA DM with Hyperglycemia POA Peripheral neuropathy POA PAD with 50-80% stenosis proximal right SFA and proximal right popliteal artery POA Medical noncompliance POA Possible osteomyelitis focal the 3rd distal phalanx right foot. PLAN: Patient remains admitted to the medical floor Continue the patient on broad-spectrum IV antibiotics, patient DCC input noted and appreciated. Patient evaluated by health policy analyst, MRI reviewed, patient most likely we will need amputation of the 3rd toe. Continue local wound care, continue with physical therapy. Patient will be working with the social organization professor for insurance coverage. Podiatry to revisit this week to allow patient to make decision regarding surgical intervention. Continue current pain medication with the adjustment as needed. NEURO: Minimize central acting medications as possible. Fall Precautions. Well lighted room through the day and minimize interruptions through the night to prevent acute delirium. PULMONARY: Supplemental 02 as needed BiPAP as necessary, for respiratory distress Titrate Fio2 to keep Spo2 > or = 90% DuoNebs and CPT as needed IS hourly while awake for pulmonary hygiene prn Out of bed to chair as tolerated Maintain aspiration precautions at all times CARDIOVASCULAR: Follow hemodynamics. Vital signs per facility protocol GI & NUTRITION: Continue nutritional support Aspirations precautions Prokinetic agents and laxatives as needed KIDNEYS & ELECTROLYTES: Strict monitoring of intake and output Daily weights Avoid nephrotoxic agents Monitor electrolytes and replace as needed Goal urine output of 30mL/hr or 0.5mL/kg/hr Medications to be dosed according to renal function. Avoid contrast if possible ENDOCRINE: Maintain blood glucose between 100-180 at all times. Insulin sliding scale for blood glucose management Hypoglycemia and hyperglycemia protocol in place INFECTIOUS DISEASE: Trend temperature, WBC and procalcitonin level Follow cultures, deescalate antibiotics as soon as possible. Panculture if new onset fever HEMATOLOGY & COAGULATION: Monitor H&H. Keep Hgb > 7 Transfuse 1 unit of PRBC for Hgb < 7 Transfuse 1 pack of platelets of platelets < 20, 000 Watch for any signs and symptoms of bleeding SKIN: Pressure ulcer prevention per facility protocol Specialty mattress as needed ORTHO/REHAB Continue PT/OT PRN: MEDICATIONS Tylenol 650 mg po every 4 hrs for fever zofran 4 mg IV every 6 hrs for n/v Hydralazine 5 mg IV every 4 hrs systolic pressure > 160 bowel regiment: lactulose 20 gm PO BID PRN constipation Supportive measures: Continue GI and DVT prophylaxis Disposition: Pending improvement in clinical condition All questions answered time spent: > 35 min CANDICE LAZAR MD Sep 29, 2024 10:01
--- NOTE | 2024-09-29 12:00 | NUR ---
[facility] Follow-up: Patient re-assessed by wound healing team, Wound care done. Education provided to patient. Addendum: 09/29/24 at 1419 by MITCH SALINAS RN RN/MARCIO Amended: Links added.
[2024-09-29] MEDS: ceFAZolin SODIUM 2 GM VIAL IVPB SCH (12:41)
--- NOTE | 2024-09-29 16:54 | PN ---
PROGRESS NOTE Date of Service: Sep 29, 2024 Time of Service: 16:52 SUBJECTIVE: 59 years old female was seen for follow up on diabetic foot infection to 3rd toe right foot the patient MRI was contributory for osteomyelitis of the distal phalanx of the 3rd toe at this time she still continues with cellulitis and infection of the toe today decreased edema and decreased erythema. She is on IV antibiotics. REVIEW OF SYSTEMS CONSTITUTIONAL: Denies fever, chills, or fatigue. HEAD/FACE: No signs of trauma. EENT: Denies eye pain, blurred vision, double vision, or light sensitivity. RESPIRATORY: Denies shortness of breath, cough, wheezing CARDIOVASCULAR: Denies chest pain, palpitation, syncope GASTROINTESTINAL/ABDOMINAL: Denies abdominal pain, constipation, diarrhea, nausea or vomiting GENITOURINARY: Denies dysuria or hematuria. MUSCULOSKELETAL: Denies joint pain, tenderness, or trauma. Osteomyelitis of the distal phalanx of the 3rd toe right foot. INTEGUMENTARY: Abscess formation periungual on the 3rd toe right foot. NEUROLOGICAL/PSYCH: Denies anxiety, depression, heat or cold intolerance. PHYSICAL EXAM EYES: Anicteric. Pupils equal and reactive. HENT: No oral thrush seen, moist Oral mucosa NECK: Supple, no JVD or thyromegaly. LUNGS: Good air entry. No rales, no rhonchi. CARDIOVASCULAR: S1, S2 regular. No murmur heard. ABDOMEN: Soft, non tender, bowel sounds present, no organomegaly CENTRAL NERVOUS SYSTEM: Awake, alert, oriented x 3. No focal deficits. SKIN: Swelling pus blister formation periungual area of 3rd toe right foot and distal aspect of the 3rd toe right foot LYMPHATICS: No peripheral lymphadenopathy MUSCULOSKELETAL: No joint swelling, erythema or tenderness. MRI positive for osteomyelitis of 3rd toe right foot. EXTREMITIES: No cyanosis or clubbing BACK: No deformity, no pressure ulcer. GENITOURINARY: No dysuria or hematuria Vital Signs (last 8hr) Date Time Temp Pulse Resp B/P (MAP) Pulse Ox O2 Delivery O2 Flow Rate FiO2 09/29/24 16:00 99.0 88 18 146/72 97 Room Air 09/29/24 12:00 98.4 91 18 170/83 98 Room Air LABS: Laboratory: Test 09/29/24 15:31 09/29/24 11:32 09/29/24 02:20 09/28/24 03:29 Range/Units Whole Blood Glucose 159 H 70-110 MG/DL Vancomycin Level Trough 20.0 10.0-20.0 UG/ML Urine Color COLORLESS YELLOW Urine Appearance CLEAR CLEAR Urine pH 6.0 5.0-8.0 Urine Specific [place] 1.007 1.001-1.031 Urine Protein NEGATIVE NEGATIVE mg/dL Urine Glucose (UA) 30 H NEGATIVE mg/dL Urine Ketones NEGATIVE NEGATIVE mg/dL Urine Occult Blood NEGATIVE NEGATIVE Urine Nitrate NEGATIVE NEGATIVE Urine Bilirubin NEGATIVE NEGATIVE mg/dL Urine Urobilinogen 0.2 0.2-1.0 mg/dL Urine Leukocyte Esterase NEGATIVE NEGATIVE Emily/uL Urine RBC 0-1 0-1 /HPF Urine WBC 0-1 0-1 /HPF Urine Bacteria None None Seen /HPF White Blood Count 11.5 H 4.8-10.8 K/uL Red Blood Count 3.17 L 4.00-5.50 MIL/uL Hemoglobin 9.7 L 12.0-16.0 g/dL Hematocrit 29.8 L 36-48 % Mean Corpuscular Volume 94.0 79-99 fL Mean Corpuscular Hemoglobin 30.6 27.0-33.0 pg Mean Corpuscular Hemoglobin Concent 32.6 32.0-36.0 g/dL Red Cell Distribution Width 13.1 11.0-15.5 % Platelet Count 214 130-400 K/uL Mean Platelet Volume 9.5 7.5-10.5 fL Nucleated Red Blood Cells 0.0 0.0-0.19 % Sodium Level 140 136-145 mmol/L Potassium Level 3.8 3.5-5.1 mmol/L Chloride Level 104 101-111 mmol/L Carbon Dioxide Level 31 21-32 mmol/L Blood Urea Nitrogen 11 7-18 mg/dL Creatinine 0.7 0.5-1.0 mg/dL Glomerular Filtration Rate Calc 100 >90 mL/min Random Glucose 85 70-105 mg/dL Total Calcium 8.2 L 8.5-10.1 mg/dL Magnesium Level 1.90 1.80-2.40 mg/dL Total Bilirubin 0.2 0.2-1.0 mg/dL Aspartate Amino Transf (AST/SGOT) 30 10-37 U/L Alanine Aminotransferase (ALT/SGPT) 24 12-78 U/L Alkaline Phosphatase 65 50-136 U/L Total Protein 6.3 6.0-8.3 g/dL Albumin 1.9 L 3.5-5.0 g/dL DIAGNOSTICS / RADIOLOGY: MRI contributory for osteomyelitis 3rd toe right foot. ASSESSMENT: Abscess cellulitis 3rd toe right foot diabetic foot infection Osteomyelitis 3rd toe right foot. PLAN: Continue IV antibiotics and local wound care topical antibiotics to the toe. We will monitor progress if patient does better with antibiotics we will continue with a scare as an outpatient we will follow up. ALIE GOOD DPM Sep 29, 2024 16:54
[2024-09-30] VITALS (8 sets, daily range): BP systolic 124–142; BP diastolic 59–69; PULSE 85–93; RESP 16–20; TEMP 98.6–99.1; O2SAT 92–96
[2024-09-30 04:07] LABS: MEAN CORPUSCULAR HEMOGLOBIN 30.4 pg (27.0-33.0); MEAN CORPUSCULAR HGB CONC 32.1 g/dL (32.0-36.0); MEAN CORPUSCULAR VOLUME 94.8 fL (79-99); RED BLOOD CELL COUNT(AUTO) 3.06 MIL/uL (4.00-5.50); RED CELL DISTRIBUTION WIDTH 13.3 % (11.0-15.5); WHITE BLOOD COUNT (AUTO) 7.5 K/uL (4.8-10.8)
[2024-09-30 04:23] LABS: ALBUMIN 1.9 g/dL (3.5-5.0); BILIRUBIN,TOTAL 0.2 mg/dL (0.2-1.0); CREATININE 0.8 mg/dL (0.5-1.0); MAGNESIUM 1.8 mg/dL (1.80-2.40); POTASSIUM 3.6 mmol/L (3.5-5.1); TOTAL PROTEIN, SERUM 6.6 g/dL (6.0-8.3)
--- NOTE | 2024-09-30 08:43 | NUR ---
MEDICATIONS MORNING MEDICATIONS WERE GIVEN. LOVENOX ADMINISTERED ON LEFT SIDE OF ABD. INSULIN ADMINISTERED ON LEFT ARM. WITNESSED BY ARTUR BERGERON. COMPUTER SHUT OFF AND WAS NOT ABLE TO SAVE MEDICATION RECORD.
--- NOTE | 2024-09-30 15:16 | PN ---
[facility] PROGRESS NOTE Date of Service: Sep 30, 2024 Time of Service: 15:13 SUBJECTIVE: This is a 59-year-old presented in ED with concern of her right 3rd toe swelling and redness and decided to come to ED for further evaluation. Onset for several days. Patient reported no injury to foot. Patient reported she has peripheral neuropathy. Noted cellulitis and discoloration of 3rd toe no drainage. She denied fever chills. Patient admitted to the medical floor for further evaluation and medical management. X-ray of the right foot was done, no evidence for fracture or subluxation. Arterial Doppler done, 50-80% stenosis of the proximal right SFA and proximal right popliteal artery, monophasic flow of the bilateral distal anterior tibial arteries as well as along the bilateral dorsalis pedis. Patient remains hemodynamically stable, afebrile, saturating normal on room air, WBC trending down 12.6. Magnesium 1.7. Patient is currently getting IV antibiotics during my visit. 09/25 patient is seen and examined at bedside, case discussed with the RN, no acute events overnight, hemodynamically stable. Patient evaluated by inspector health care facilities yesterday, I and D performed at bedside. We will continue with current pain medication, IV antibiotics, dressing changes. Patient evaluated by photocomposing machine operator, patient has been. Plavix 75 mg p.o. daily added. Follow results of MRI of the right foot, if osteomyelitis confirmed, may need to consider invasive Angiography versus CTA runoff. 09/26 patient is seen and examined at bedside, patient is still spiking fever, she is alert oriented x3, hemodynamically stable, maximum temperature last night 101.5. Septic workup reviewed, so far blood cultures negative, and aerobic culture preliminary report no growth yet. Aorta runoff normal examination, no significant vascular abnormalities identified, no significant peripheral vascular disease, runoff is preserved bilaterally. In the MRI to the right foot. Continue broad-spectrum IV antibiotics. Continue dressing changes to the right foot per Podiatry recommendations. 09/27 patient is seen and examined at bedside, case discussed with the RN, no acute events overnight, during my visit patient comfortably in bed, alert oriented x3, hemodynamically stable, results of MRI to the right foot with po ssible osteomyelitis, involving the 3rd distal phalanx. Discussed with the patient. 09/28 patient is seen and examined at bedside, case discussed with the RN, no acute events overnight, patient getting IV antibiotics at the time of my visit, getting good pain control with current medical management. No chest pain, no nausea, no vomiting, patient had slight temperature 100.2 last night. Persistent leukocytosis 11.5. Hemoglobin 9.7, hematocrit 29.8. Patient evaluated by inspector health care facilities, patient most likely we will require amputation of the 3rd toe continue local wound care. 09/29 patient is seen and examined at bedside, case discussed with the RN, no acute events overnight, patient getting IV antibiotics at the time of my visit, getting good pain control with current medical management. Patient is still spiking fever, last night 101.7. Patient evaluated by inspector health care facilities, MRI reviewed, patient most likely will need amputation of the 3rd toe. Continue local wound care, continue with physical therapy. Patient will be working with the social security specialist for insurance coverage. Podiatry to revisit this week to allow patient to make decision regarding surgical intervention. 09/30 patient seen at bedside, no acute events overnight. Podiatry recommended continue antibiotics until Wednesday at which time they will reassess for possible amputation versus continued medical management. He has no complaints at this time, vitals and labs are relatively unremarkable. REVIEW OF SYSTEMS a 14 point ROS obtained all relevant positive documented otherwise ROS negative PHYSICAL EXAM GENERAL APPEARANCE: The patient is awake, alert, and oriented, in no acute cardiopulmonary distress. NEUROLOGICAL: Cranial nerves II-XII grossly intact. Motor is 5/5 in bilateral upper and lower extremities proximal to distal. No sensory deficits. HEENT: Face is symmetric. Pupils are equal and reactive. Extraocular movements are intact. NECK: Supple. No JVD. No thyromegaly. No submental, submandibular, pre- /postauricular, occipital or supraclavicular lymphadenopathy. CHEST: Normal chest expansion. No Telemetry. LUNGS: Absence of any rales, rhonchi or any wheezing. CARDIOVASCULAR: Regular. S1 and S2 normal. No appreciable rubs, murmurs or g allops. ABDOMEN: Soft, nontender, and nondistended. There is no rebound, voluntary gua rding, or rigidity. : Deferred. No Best. EXTREMITIES: Non-edematous and not cyanotic. No clubbing. Good capillary refill. Right foot 3rd toe swollen erythematous. Amputation to the right great toe. Palpable pedal pulses. SKIN: No skin breakdown. Vital Signs (last 8hr) Date Time Temp Pulse Resp B/P (MAP) Pulse Ox O2 Delivery O2 Flow Rate FiO2 09/30/24 12:00 98.8 85 18 124/59 95 Room Air 09/30/24 08:00 98.6 86 18 138/64 92 Room Air LABS: Laboratory: Test 09/30/24 11:53 09/30/24 03:27 09/29/24 11:32 09/29/24 02:20 Range/Units Whole Blood Glucose 129 H 70-110 MG/DL White Blood Count 7.5 4.8-10.8 K/uL Red Blood Count 3.06 L 4.00-5.50 MIL/uL Hemoglobin 9.3 L 12.0-16.0 g/dL Hematocrit 29.0 L 36-48 % Mean Corpuscular Volume 94.8 79-99 fL Mean Corpuscular Hemoglobin 30.4 27.0-33.0 pg Mean Corpuscular Hemoglobin Concent 32.1 32.0-36.0 g/dL Red Cell Distribution Width 13.3 11.0-15.5 % Platelet Count 285 # 130-400 K/uL Mean Platelet Volume 9.3 7.5-10.5 fL Nucleated Red Blood Cells 0.0 0.0-0.19 % Sodium Level 139 136-145 mmol/L Potassium Level 3.6 3.5-5.1 mmol/L Chloride Level 104 101-111 mmol/L Carbon Dioxide Level 31 21-32 mmol/L Blood Urea Nitrogen 11 7-18 mg/dL Creatinine 0.8 0.5-1.0 mg/dL Glomerular Filtration Rate Calc 85 >90 mL/min Random Glucose 122 H 70-105 mg/dL Total Calcium 8.3 L 8.5-10.1 mg/dL Magnesium Level 1.80 1.80-2.40 mg/dL Total Bilirubin 0.2 0.2-1.0 mg/dL Aspartate Amino Transf (AST/SGOT) 22 10-37 U/L Alanine Aminotransferase (ALT/SGPT) 23 12-78 U/L Alkaline Phosphatase 71 50-136 U/L Total Protein 6.6 6.0-8.3 g/dL Albumin 1.9 L 3.5-5.0 g/dL Vancomycin Level Trough 20.0 10.0-20.0 UG/ML Urine Color COLORLESS YELLOW Urine Appearance CLEAR CLEAR Urine pH 6.0 5.0-8.0 Urine Specific [place] 1.007 1.001-1.031 Urine Protein NEGATIVE NEGATIVE mg/dL Urine Glucose (UA) 30 H NEGATIVE mg/dL Urine Ketones NEGATIVE NEGATIVE mg/dL Urine Occult Blood NEGATIVE NEGATIVE Urine Nitrate NEGATIVE NEGATIVE Urine Bilirubin NEGATIVE NEGATIVE mg/dL Urine Urobilinogen 0.2 0.2-1.0 mg/dL Urine Leukocyte Esterase NEGATIVE NEGATIVE Emily/uL Urine RBC 0-1 0-1 /HPF Urine WBC 0-1 0-1 /HPF Urine Bacteria None None Seen /HPF Current Medications Medications (Trade) Dose Ordered Sig/David Route PRN Reason Start Time Stop Time Status Last Admin Dose Admin Acetaminophen (TYLenol 325MG TAB) 650 mg Q4H PRN PO TEMPERATURE GREATER THAN 101.5 09/23/24 17:00 10/23/24 16:59 09/28/24 20:03 650 MG Acetaminophen/ Codeine Phosphate (TYLenol-coDEINE TAB) 1 tab Q4H PRN PO MODERATE PAIN (4-6) 09/23/24 17:00 10/23/24 16:59 Aspirin (Aspirin 81mg Ec Tab) 81 mg DAILY PO 09/25/24 09:00 10/25/24 08:59 09/30/24 08:52 81 MG Atorvastatin Calcium (LIPItor 40MG) 80 mg DAILY PO 09/25/24 09:00 10/25/24 08:59 09/30/24 08:53 80 MG Bacitracin (Bacitracin 28.4gm) 1 PATRICK AD DAILY TP 09/25/24 09:00 10/25/24 08:59 09/30/24 08:55 1 GM Cefazolin Sodium (Ancef) 2 gm Q8H IVPB 09/29/24 12:30 10/20/24 12:29 09/30/24 13:15 2 GM Clopidogrel Bisulfate (plaVIX 75MG) 75 mg DAILY PO 09/25/24 09:00 10/25/24 08:59 09/30/24 08:53 75 MG Enoxaparin Sodium (Lovenox) 40 mg DAILY SQ 09/25/24 09:00 10/25/24 08:59 09/30/24 08:55 40 MG Fluoxetine HCl (FLUoxetine HCL 20 MG CAPSULE) 20 mg DAILY PO 09/25/24 09:00 10/25/24 08:59 09/30/24 08:53 20 MG Gabapentin (NEURontin 100 mg CAP) 100 mg TID PO 09/24/24 14:00 10/24/24 13:59 09/30/24 13:15 100 MG Glipizide (GLUCOtrol 5MG TABLET) 5 mg DAILY PO 09/25/24 09:00 09/30/24 06:38 DC 09/29/24 08:02 5 MG Hydralazine HCl (APRESOLine 20MG INJ) 5 mg Q4H PRN IV ADMINISTER FOR SBP > 160 09/23/24 17:00 10/23/24 16:59 Insulin Human Isoph/Insulin Regular (humuLIN 70-30 VIAL) 40 unit BIDAC SQ 09/24/24 16:30 10/24/24 16:29 09/30/24 08:56 40 UNIT Insulin Human Regular (humuLIN R 100 UNIT/ML 3ML) INSULIN SLIDING SCAL... ACHS SQ 09/23/24 21:00 10/23/24 20:59 09/29/24 07:40 4 UNIT Lactulose (Constulose 20gm/ 30ml Udcup) 20 gm BID PRN PO CONSTIPATION 09/23/24 17:00 10/23/24 16:59 Lisinopril (Prinivil 20mg) 20 mg DAILY PO 09/25/24 09:00 10/25/24 08:59 09/30/24 08:54 20 MG Magnesium Sulfate 50 ml @ 0 mls/hr PROTOCOL IV 09/24/24 11:00 10/24/24 10:59 09/30/24 05:28 25 MLS/HR Magnesium Sulfate 50 ml @ 0 mls/hr PROTOCOL PRN IV low mag level 09/23/24 17:00 09/24/24 10:58 DC Ondansetron HCl (zoFRAN 4MG INJ) 4 mg Q6H PRN IVP NAUSEA/VOMITING 09/23/24 17:00 10/23/24 16:59 Pharmacy Profile Note (Pharmacy Communication) 1 each ONCE MISC 09/23/24 17:30 09/24/24 07:32 DC Piperacillin Sod/ Tazobactam Sod (Zosyn 3.375gm+NS 50ml) 3.375 gm Q8H IV 09/23/24 16:30 09/29/24 12:21 DC 09/29/24 08:01 3.375 GM Potassium Chloride 100 ml @ 100 mls/hr AD PRN IV POTASSIUM PROTOCOL 09/23/24 17:00 10/23/24 16:59 09/26/24 04:45 100 MLS/HR Potassium Chloride (K-Dur/Klor-Con 20meq) 20 meq AD PRN PO POTASSIUM PROTOCOL 09/23/24 17:00 10/23/24 16:59 09/30/24 13:15 20 MEQ Potassium Chloride (KCl 10% Elixir 20meq/15ml) 20 meq AD PRN PO POTASSIUM PROTOCOL 09/23/24 17:00 10/23/24 16:59 Sodium Chloride 1,000 ml @ 75 mls/hr [id number] IV 09/23/24 17:00 10/23/24 16:59 09/30/24 08:52 75 MLS/HR Vancomycin HCl (Vancomycin 1g/ 250ml Kit) 1 gm Q12H IV 09/23/24 16:30 09/25/24 05:02 DC 09/25/24 04:37 1 GM Vancomycin HCl (Vancomycin 1g/ 250ml Kit) 1 gm Q8H IV 09/25/24 12:30 09/29/24 12:21 DC 09/29/24 04:37 1 GM DIAGNOSTICS / RADIOLOGY: [ ] ASSESSMENT: Abscess cellulitis 3rd toe right foot diabetic foot infection, POA Status post I&D 09/24/2024 Osteomyelitis of third distal phalangeal tuft POA Leukocytosis POA DM with Hyperglycemia POA Peripheral neuropathy POA PAD with 50-80% stenosis proximal right SFA and proximal right popliteal artery POA Medical noncompliance POA Possible osteomyelitis focal the 3rd distal phalanx right foot. PLAN: Patient remains admitted to the medical floor Continue the patient on broad-spectrum IV antibiotics, patient DCC input noted and appreciated. Patient evaluated by inspector health care facilities, MRI reviewed, patient most likely we will need amputation of the 3rd toe. Continue local wound care, continue with physical therapy. Patient will be working with the social security specialist for insurance coverage. Podiatry consulted, appreciate recommendations Disposition: Continue reevaluation on Wednesday for possible amputation ARSENIO PATRICK MD Sep 30, 2024 15:16
[2024-10-01] VITALS (7 sets, daily range): BP systolic 133–158; BP diastolic 66–79; PULSE 79–94; RESP 16–20; TEMP 98.3–98.9; O2SAT 95–96
[2024-10-01 04:07] LABS: BASOPHILS # (AUTO) 0.04 K/uL (0.00-0.20); BASOPHILS % (AUTO) 0.5 % (0.0-5.0); EOSINOPHILS # (AUTO) 0.22 K/uL (0.00-0.70); EOSINOPHILS % (AUTO) 2.8 % (0.0-8.0); HEMATOCRIT 28.6 % (36-48); IMMATURE GRANULOCYTE ABSOLUTE 0.18 K/uL (0-1); LYMPHOCYTES # (AUTO) 1.4 K/uL (1.0-4.8); LYMPHOCYTES % (AUTO) 17.7 % (21.0-51.0); MEAN CORPUSCULAR HEMOGLOBIN 29.7 pg (27.0-33.0); MEAN CORPUSCULAR HGB CONC 31.5 g/dL (32.0-36.0); MEAN CORPUSCULAR VOLUME 94.4 fL (79-99); MONOCYTES # (AUTO) 0.8 K/uL (0.1-1.0); MONOCYTES % (AUTO) 9.7 % (3.0-13.0); NEUTROPHILS # (AUTO) 5.2 K/uL (1.8-7.7); PLATELET COUNT (AUTO) 321 K/uL (130-400); RED BLOOD CELL COUNT(AUTO) 3.03 MIL/uL (4.00-5.50); RED CELL DISTRIBUTION WIDTH 13.3 % (11.0-15.5); WHITE BLOOD COUNT (AUTO) 7.8 K/uL (4.8-10.8)
[2024-10-01 04:24] LABS: CREATININE 0.6 mg/dL (0.5-1.0); PHOSPHORUS 3.9 mg/dL (2.5-4.9); POTASSIUM 3.6 mmol/L (3.5-5.1)
--- NOTE | 2024-10-01 13:41 | PN ---
[facility] PROGRESS NOTE Date of Service: Oct 01, 2024 Time of Service: 13:36 SUBJECTIVE: This is a 59-year-old presented in ED with concern of her right 3rd toe swelling and redness and decided to come to ED for further evaluation. Onset for several days. Patient reported no injury to foot. Patient reported she has peripheral neuropathy. Noted cellulitis and discoloration of 3rd toe no drainage. She denied fever chills. Patient admitted to the medical floor for further evaluation and medical management. X-ray of the right foot was done, no evidence for fracture or subluxation. Arterial Doppler done, 50-80% stenosis of the proximal right SFA and proximal right popliteal artery, monophasic flow of the bilateral distal anterior tibial arteries as well as along the bilateral dorsalis pedis. Patient remains hemodynamically stable, afebrile, saturating normal on room air, WBC trending down 12.6. Magnesium 1.7. Patient is currently getting IV antibiotics during my visit. 09/25 patient is seen and examined at bedside, case discussed with the RN, no acute events overnight, hemodynamically stable. Patient evaluated by payment poster yesterday, I and D performed at bedside. We will continue with current pain medication, IV antibiotics, dressing changes. Patient evaluated by ends down checker, patient has been. Plavix 75 mg p.o. daily added. Follow results of MRI of the right foot, if osteomyelitis confirmed, may need to consider invasive Angiography versus CTA runoff. 09/26 patient is seen and examined at bedside, patient is still spiking fever, she is alert oriented x3, hemodynamically stable, maximum temperature last night 101.5. Septic workup reviewed, so far blood cultures negative, and aerobic culture preliminary report no growth yet. Aorta runoff normal examination, no significant vascular abnormalities identified, no significant peripheral vascular disease, runoff is preserved bilaterally. In the MRI to the right foot. Continue broad-spectrum IV antibiotics. Continue dressing changes to the right foot per Podiatry recommendations. 09/27 patient is seen and examined at bedside, case discussed with the RN, no acute events overnight, during my visit patient comfortably in bed, alert oriented x3, hemodynamically stable, results of MRI to the right foot with po ssible osteomyelitis, involving the 3rd distal phalanx. Discussed with the patient. 09/28 patient is seen and examined at bedside, case discussed with the RN, no acute events overnight, patient getting IV antibiotics at the time of my visit, getting good pain control with current medical management. No chest pain, no nausea, no vomiting, patient had slight temperature 100.2 last night. Persistent leukocytosis 11.5. Hemoglobin 9.7, hematocrit 29.8. Patient evaluated by payment poster, patient most likely we will require amputation of the 3rd toe continue local wound care. 09/29 patient is seen and examined at bedside, case discussed with the RN, no acute events overnight, patient getting IV antibiotics at the time of my visit, getting good pain control with current medical management. Patient is still spiking fever, last night 101.7. Patient evaluated by payment poster, MRI reviewed, patient most likely will need amputation of the 3rd toe. Continue local wound care, continue with physical therapy. Patient will be working with the social security benefits interviewer for insurance coverage. Podiatry to revisit this week to allow patient to make decision regarding surgical intervention. 09/30 patient seen at bedside, no acute events overnight. Podiatry recommended continue antibiotics until Wednesday at which time they will reassess for possible amputation versus continued medical management. He has no complaints at this time, vitals and labs are relatively unremarkable. 10/01 Pt seen at bedside, no acute events overnight. Continue antibiotics until Wednesday. Vitals and labs relatively unremarkable REVIEW OF SYSTEMS a 14 point ROS obtained all relevant positive documented otherwise ROS negative PHYSICAL EXAM GENERAL APPEARANCE: The patient is awake, alert, and oriented, in no acute cardiopulmonary distress. NEUROLOGICAL: Cranial nerves II-XII grossly intact. Motor is 5/5 in bilateral upper and lower extremities proximal to distal. No sensory deficits. HEENT: Face is symmetric. Pupils are equal and reactive. Extraocular movements are intact. NECK: Supple. No JVD. No thyromegaly. No submental, submandibular, pre- /postauricular, occipital or supraclavicular lymphadenopathy. CHEST: Normal chest expansion. No Telemetry. LUNGS: Absence of any rales, rhonchi or any wheezing. CARDIOVASCULAR: Regular. S1 and S2 normal. No appreciable rubs, murmurs or gallops. ABDOMEN: Soft, nontender, and nondistended. There is no rebound, voluntary g uarding, or rigidity. : Deferred. No Best. EXTREMITIES: Non-edematous and not cyanotic. No clubbing. Good capillary refill. Right foot 3rd toe swollen erythematous. Amputation to the right great toe. Palpable pedal pulses. SKIN: No skin breakdown. Vital Signs (last 8hr) Date Time Temp Pulse Resp B/P (MAP) Pulse Ox O2 Delivery O2 Flow Rate FiO2 10/01/24 12:00 98.2 88 20 158/76 95 Room Air 10/01/24 08:46 95 Room Air* 0 21 10/01/24 08:00 98.8 79 20 147/79 95 Room Air LABS: Laboratory: Test 10/01/24 11:03 10/01/24 03:44 09/30/24 03:27 Range/Units Whole Blood Glucose 180 #H 70-110 MG/DL White Blood Count 7.8 4.8-10.8 K/uL Red Blood Count 3.03 L 4.00-5.50 MIL/uL Hemoglobin 9.0 L 12.0-16.0 g/dL Hematocrit 28.6 L 36-48 % Mean Corpuscular Volume 94.4 79-99 fL Mean Corpuscular Hemoglobin 29.7 27.0-33.0 pg Mean Corpuscular Hemoglobin Concent 31.5 L 32.0-36.0 g/dL Red Cell Distribution Width 13.3 11.0-15.5 % Platelet Count 321 130-400 K/uL Mean Platelet Volume 9.3 7.5-10.5 fL Immature Granulocyte % (Auto) 2.3 H 0-1 % Neutrophils (%) (Auto) 67.0 40.0-77.0 % Lymphocytes (%) (Auto) 17.7 L 21.0-51.0 % Monocytes (%) (Auto) 9.7 3.0-13.0 % Eosinophils (%) (Auto) 2.8 0.0-8.0 % Basophils (%) (Auto) 0.5 0.0-5.0 % Neutrophils # (Auto) 5.2 1.8-7.7 K/uL Lymphocytes # (Auto) 1.4 1.0-4.8 K/uL Monocytes # (Auto) 0.8 0.1-1.0 K/uL Eosinophils # (Auto) 0.22 0.00-0.70 K/uL Basophils # (Auto) 0.04 0.00-0.20 K/uL Absolute Immature Granulocyte (auto 0.18 0-1 K/uL Nucleated Red Blood Cells 0.0 0.0-0.19 % Sodium Level 140 136-145 mmol/L Potassium Level 3.6 3.5-5.1 mmol/L Chloride Level 105 101-111 mmol/L Carbon Dioxide Level 29 21-32 mmol/L Blood Urea Nitrogen 13 7-18 mg/dL Creatinine 0.6 0.5-1.0 mg/dL Glomerular Filtration Rate Calc 104 >90 mL/min Random Glucose 121 H 70-105 mg/dL Total Calcium 8.2 L 8.5-10.1 mg/dL Phosphorus Level 3.9 2.5-4.9 mg/dL Magnesium Level 2.00 1.80-2.40 mg/dL Total Bilirubin 0.2 0.2-1.0 mg/dL Aspartate Amino Transf (AST/SGOT) 22 10-37 U/L Alanine Aminotransferase (ALT/SGPT) 23 12-78 U/L Alkaline Phosphatase 71 50-136 U/L Total Protein 6.6 6.0-8.3 g/dL Albumin 1.9 L 3.5-5.0 g/dL Current Medications Medications (Trade) Dose Ordered Sig/David Route PRN Reason Start Time Stop Time Status Last Admin Dose Admin Acetaminophen (TYLenol 325MG TAB) 650 mg Q4H PRN PO TEMPERATURE GREATER THAN 101.5 09/23/24 17:00 10/23/24 16:59 09/28/24 20:03 650 MG Acetaminophen/ Codeine Phosphate (TYLenol-coDEINE TAB) 1 tab Q4H PRN PO MODERATE PAIN (4-6) 09/23/24 17:00 10/23/24 16:59 Aspirin (Aspirin 81mg Ec Tab) 81 mg DAILY PO 09/25/24 09:00 10/25/24 08:59 10/01/24 08:46 81 MG Atorvastatin Calcium (LIPItor 40MG) 80 mg DAILY PO 09/25/24 09:00 10/25/24 08:59 10/01/24 08:46 80 MG Bacitracin (Bacitracin 28.4gm) 1 PATRICK AD DAILY TP 09/25/24 09:00 10/25/24 08:59 10/01/24 09:25 28.4 GM Cefazolin Sodium (Ancef) 2 gm Q8H IVPB 09/29/24 12:30 10/20/24 12:29 10/01/24 12:08 2 GM Clopidogrel Bisulfate (plaVIX 75MG) 75 mg DAILY PO 09/25/24 09:00 10/25/24 08:59 10/01/24 09:17 75 MG Enoxaparin Sodium (Lovenox) 40 mg DAILY SQ 09/25/24 09:00 10/25/24 08:59 10/01/24 08:47 40 MG Fluoxetine HCl (FLUoxetine HCL 20 MG CAPSULE) 20 mg DAILY PO 09/25/24 09:00 10/25/24 08:59 10/01/24 08:46 20 MG Gabapentin (NEURontin 100 mg CAP) 100 mg TID PO 09/24/24 14:00 10/24/24 13:59 10/01/24 08:46 100 MG Glipizide (GLUCOtrol 5MG TABLET) 5 mg DAILY PO 09/25/24 09:00 09/30/24 06:38 DC 09/29/24 08:02 5 MG Hydralazine HCl (APRESOLine 20MG INJ) 5 mg Q4H PRN IV ADMINISTER FOR SBP > 160 09/23/24 17:00 10/23/24 16:59 Insulin Human Isoph/Insulin Regular (humuLIN 70-30 VIAL) 40 unit BIDAC SQ 09/24/24 16:30 10/24/24 16:29 10/01/24 08:52 40 UNIT Insulin Human Regular (humuLIN R 100 UNIT/ML 3ML) INSULIN SLIDING SCAL... ACHS SQ 09/23/24 21:00 10/23/24 20:59 10/01/24 12:11 4 UNIT Lactulose (Constulose 20gm/ 30ml Udcup) 20 gm BID PRN PO CONSTIPATION 09/23/24 17:00 10/23/24 16:59 Lisinopril (Prinivil 20mg) 20 mg DAILY PO 09/25/24 09:00 10/25/24 08:59 10/01/24 08:46 20 MG Magnesium Sulfate 50 ml @ 0 mls/hr PROTOCOL IV 09/24/24 11:00 10/24/24 10:59 09/30/24 05:28 25 MLS/HR Magnesium Sulfate 50 ml @ 0 mls/hr PROTOCOL PRN IV low mag level 09/23/24 17:00 09/24/24 10:58 DC Ondansetron HCl (zoFRAN 4MG INJ) 4 mg Q6H PRN IVP NAUSEA/VOMITING 09/23/24 17:00 10/23/24 16:59 Pharmacy Profile Note (Pharmacy Communication) 1 each ONCE MISC 09/23/24 17:30 09/24/24 07:32 DC Piperacillin Sod/ Tazobactam Sod (Zosyn 3.375gm+NS 50ml) 3.375 gm Q8H IV 09/23/24 16:30 09/29/24 12:21 DC 09/29/24 08:01 3.375 GM Potassium Chloride 100 ml @ 100 mls/hr AD PRN IV POTASSIUM PROTOCOL 09/23/24 17:00 10/23/24 16:59 09/26/24 04:45 100 MLS/HR Potassium Chloride (K-Dur/Klor-Con 20meq) 20 meq AD PRN PO POTASSIUM PROTOCOL 09/23/24 17:00 10/23/24 16:59 10/01/24 09:40 20 MEQ Potassium Chloride (KCl 10% Elixir 20meq/15ml) 20 meq AD PRN PO POTASSIUM PROTOCOL 09/23/24 17:00 10/23/24 16:59 Sodium Chloride 1,000 ml @ 75 mls/hr [id number] IV 09/23/24 17:00 10/23/24 16:59 10/01/24 12:07 75 MLS/HR Vancomycin HCl (Vancomycin 1g/ 250ml Kit) 1 gm Q12H IV 09/23/24 16:30 09/25/24 05:02 DC 09/25/24 04:37 1 GM Vancomycin HCl (Vancomycin 1g/ 250ml Kit) 1 gm Q8H IV 09/25/24 12:30 09/29/24 12:21 DC 09/29/24 04:37 1 GM DIAGNOSTICS / RADIOLOGY: [ ] ASSESSMENT: Abscess cellulitis 3rd toe right foot diabetic foot infection, POA Status post I&D 09/24/2024 Osteomyelitis of third distal phalangeal tuft POA Leukocytosis POA DM with Hyperglycemia POA Peripheral neuropathy POA PAD with 50-80% stenosis proximal right SFA and proximal right popliteal artery POA Medical noncompliance POA Possible osteomyelitis focal the 3rd distal phalanx right foot. PLAN: Patient remains admitted to the medical floor Continue the patient on broad-spectrum IV antibiotics, patient DCC input noted and appreciated. Patient evaluated by payment poster, MRI reviewed, patient most likely we will need amputation of the 3rd toe. Continue local wound care, continue with physical therapy. Patient will be working with the social security benefits interviewer for insurance coverage. Podiatry consulted, appreciate recommendations Disposition: Continue reevaluation on Wednesday for possible amputation ARSENIO PATRICK MD Oct 01, 2024 13:41
[2024-10-02] VITALS (8 sets, daily range): BP systolic 136–161; BP diastolic 59–81; PULSE 72–91; RESP 16–18; TEMP 98.4–99; O2SAT 95–97
[2024-10-02 04:10] LABS: BASOPHILS # (AUTO) 0.04 K/uL (0.00-0.20); BASOPHILS % (AUTO) 0.4 % (0.0-5.0); EOSINOPHILS # (AUTO) 0.27 K/uL (0.00-0.70); EOSINOPHILS % (AUTO) 2.8 % (0.0-8.0); HEMATOCRIT 28.9 % (36-48); IMMATURE GRANULOCYTE ABSOLUTE 0.36 K/uL (0-1); LYMPHOCYTES # (AUTO) 1.4 K/uL (1.0-4.8); LYMPHOCYTES % (AUTO) 14.3 % (21.0-51.0); MEAN CORPUSCULAR HEMOGLOBIN 30.5 pg (27.0-33.0); MEAN CORPUSCULAR HGB CONC 32.2 g/dL (32.0-36.0); MEAN CORPUSCULAR VOLUME 94.8 fL (79-99); MONOCYTES # (AUTO) 0.7 K/uL (0.1-1.0); MONOCYTES % (AUTO) 7.1 % (3.0-13.0); NEUTROPHILS % (AUTO) 71.7 % (40.0-77.0); NUCLEATED RED BLOOD CELLS 0.2 % (0.0-0.19); PLATELET COUNT (AUTO) 341 K/uL (130-400); RED BLOOD CELL COUNT(AUTO) 3.05 MIL/uL (4.00-5.50); RED CELL DISTRIBUTION WIDTH 13.2 % (11.0-15.5); WHITE BLOOD COUNT (AUTO) 9.7 K/uL (4.8-10.8)
[2024-10-02 04:32] LABS: CREATININE 0.7 mg/dL (0.5-1.0); POTASSIUM 3.7 mmol/L (3.5-5.1)
--- NOTE | 2024-10-02 12:52 | PN ---
[facility] PROGRESS NOTE Date of Service: Oct 02, 2024 Time of Service: 12:48 SUBJECTIVE: This is a 59-year-old presented in ED with concern of her right 3rd toe swelling and redness and decided to come to ED for further evaluation. Onset for several days. Patient reported no injury to foot. Patient reported she has peripheral neuropathy. Noted cellulitis and discoloration of 3rd toe no drainage. She denied fever chills. Patient admitted to the medical floor for further evaluation and medical management. X-ray of the right foot was done, no evidence for fracture or subluxation. Arterial Doppler done, 50-80% stenosis of the proximal right SFA and proximal right popliteal artery, monophasic flow of the bilateral distal anterior tibial arteries as well as along the bilateral dorsalis pedis. Patient remains hemodynamically stable, afebrile, saturating normal on room air, WBC trending down 12.6. Magnesium 1.7. Patient is currently getting IV antibiotics during my visit. 09/25 patient is seen and examined at bedside, case discussed with the RN, no acute events overnight, hemodynamically stable. Patient evaluated by picking machine operator yesterday, I and D performed at bedside. We will continue with current pain medication, IV antibiotics, dressing changes. Patient evaluated by college or university registrar, patient has been. Plavix 75 mg p.o. daily added. Follow results of MRI of the right foot, if osteomyelitis confirmed, may need to consider invasive Angiography versus CTA runoff. 09/26 patient is seen and examined at bedside, patient is still spiking fever, she is alert oriented x3, hemodynamically stable, maximum temperature last night 101.5. Septic workup reviewed, so far blood cultures negative, and aerobic culture preliminary report no growth yet. Aorta runoff normal examination, no significant vascular abnormalities identified, no significant peripheral vascular disease, runoff is preserved bilaterally. In the MRI to the right foot. Continue broad-spectrum IV antibiotics. Continue dressing changes to the right foot per Podiatry recommendations. 09/27 patient is seen and examined at bedside, case discussed with the RN, no acute events overnight, during my visit patient comfortably in bed, alert oriented x3, hemodynamically stable, results of MRI to the right foot with po ssible osteomyelitis, involving the 3rd distal phalanx. Discussed with the patient. 09/28 patient is seen and examined at bedside, case discussed with the RN, no acute events overnight, patient getting IV antibiotics at the time of my visit, getting good pain control with current medical management. No chest pain, no nausea, no vomiting, patient had slight temperature 100.2 last night. Persistent leukocytosis 11.5. Hemoglobin 9.7, hematocrit 29.8. Patient evaluated by picking machine operator, patient most likely we will require amputation of the 3rd toe continue local wound care. 09/29 patient is seen and examined at bedside, case discussed with the RN, no acute events overnight, patient getting IV antibiotics at the time of my visit, getting good pain control with current medical management. Patient is still spiking fever, last night 101.7. Patient evaluated by picking machine operator, MRI reviewed, patient most likely will need amputation of the 3rd toe. Continue local wound care, continue with physical therapy. Patient will be working with the perinatal social worker for insurance coverage. Podiatry to revisit this week to allow patient to make decision regarding surgical intervention. 09/30 patient seen at bedside, no acute events overnight. Podiatry recommended continue antibiotics until Wednesday at which time they will reassess for possible amputation versus continued medical management. He has no complaints at this time, vitals and labs are relatively unremarkable. 10/01 Pt seen at bedside, no acute events overnight. Continue antibiotics until Wednesday. Vitals and labs relatively unremarkable 10/02 Pt seen at bedside, no acute events overnight. Pending podiatry reevaluation today, will follow up with their recommendations. REVIEW OF SYSTEMS a 14 point ROS obtained all relevant positive documented otherwise ROS negative PHYSICAL EXAM GENERAL APPEARANCE: The patient is awake, alert, and oriented, in no acute cardiopulmonary distress. NEUROLOGICAL: Cranial nerves II-XII grossly intact. Motor is 5/5 in bilateral upper and lower extremities proximal to distal. No sensory deficits. HEENT: Face is symmetric. Pupils are equal and reactive. Extraocular movements are intact. NECK: Supple. No JVD. No thyromegaly. No submental, submandibular, pre- /postauricular, occipital or supraclavicular lymphadenopathy. CHEST: Normal chest expansion. No Telemetry. LUNGS: Absence of any rales, rhonchi or any wheezing. CARDIOVASCULAR: Regular. S1 and S2 normal. No appreciable rubs, murmurs or gallops. ABDOMEN: Soft, nontender, and nondistended. There is no rebound, voluntary guarding, or rigidity. : Deferred. No Best. EXTREMITIES: Non-edematous and not cyanotic. No clubbing. Good capillary refill. Right foot 3rd toe swollen erythematous. Amputation to the right great toe. Palpable pedal pulses. SKIN: No skin breakdown. Vital Signs (last 8hr) Date Time Temp Pulse Resp B/P (MAP) Pulse Ox O2 Delivery O2 Flow Rate FiO2 10/02/24 12:03 98.4 89 18 136/69 94 Room Air 10/02/24 08:00 98.4 87 17 156/80 95 Room Air LABS: Laboratory: Test 10/02/24 11:11 10/02/24 03:41 10/01/24 03:44 Range/Units Whole Blood Glucose 182 H 70-110 MG/DL White Blood Count 9.7 4.8-10.8 K/uL Red Blood Count 3.05 L 4.00-5.50 MIL/uL Hemoglobin 9.3 L 12.0-16.0 g/dL Hematocrit 28.9 L 36-48 % Mean Corpuscular Volume 94.8 79-99 fL Mean Corpuscular Hemoglobin 30.5 27.0-33.0 pg Mean Corpuscular Hemoglobin Concent 32.2 32.0-36.0 g/dL Red Cell Distribution Width 13.2 11.0-15.5 % Platelet Count 341 130-400 K/uL Mean Platelet Volume 9.1 7.5-10.5 fL Immature Granulocyte % (Auto) 3.7 H 0-1 % Neutrophils (%) (Auto) 71.7 40.0-77.0 % Lymphocytes (%) (Auto) 14.3 L 21.0-51.0 % Monocytes (%) (Auto) 7.1 3.0-13.0 % Eosinophils (%) (Auto) 2.8 0.0-8.0 % Basophils (%) (Auto) 0.4 0.0-5.0 % Neutrophils # (Auto) 7.0 1.8-7.7 K/uL Lymphocytes # (Auto) 1.4 1.0-4.8 K/uL Monocytes # (Auto) 0.7 0.1-1.0 K/uL Eosinophils # (Auto) 0.27 0.00-0.70 K/uL Basophils # (Auto) 0.04 0.00-0.20 K/uL Absolute Immature Granulocyte (auto 0.36 0-1 K/uL Nucleated Red Blood Cells 0.2 H 0.0-0.19 % Sodium Level 140 136-145 mmol/L Potassium Level 3.7 3.5-5.1 mmol/L Chloride Level 103 101-111 mmol/L Carbon Dioxide Level 31 21-32 mmol/L Blood Urea Nitrogen 14 7-18 mg/dL Creatinine 0.7 0.5-1.0 mg/dL Glomerular Filtration Rate Calc 100 >90 mL/min Random Glucose 105 70-105 mg/dL Total Calcium 8.4 L 8.5-10.1 mg/dL Phosphorus Level 3.9 2.5-4.9 mg/dL Magnesium Level 2.00 1.80-2.40 mg/dL Current Medications Medications (Trade) Dose Ordered Sig/David Route PRN Reason Start Time Stop Time Status Last Admin Dose Admin Acetaminophen (TYLenol 325MG TAB) 650 mg Q4H PRN PO TEMPERATURE GREATER THAN 101.5 09/23/24 17:00 10/23/24 16:59 09/28/24 20:03 650 MG Acetaminophen/ Codeine Phosphate (TYLenol-coDEINE TAB) 1 tab Q4H PRN PO MODERATE PAIN (4-6) 09/23/24 17:00 10/23/24 16:59 Aspirin (Aspirin 81mg Ec Tab) 81 mg DAILY PO 09/25/24 09:00 10/25/24 08:59 10/02/24 09:43 81 MG Atorvastatin Calcium (LIPItor 40MG) 80 mg DAILY PO 09/25/24 09:00 10/25/24 08:59 10/02/24 09:43 80 MG Bacitracin (Bacitracin 28.4gm) 1 PATRICK AD DAILY TP 09/25/24 09:00 10/25/24 08:59 10/02/24 09:44 1 GM Cefazolin Sodium (Ancef) 2 gm Q8H IVPB 09/29/24 12:30 10/20/24 12:29 10/02/24 04:10 2 GM Clopidogrel Bisulfate (plaVIX 75MG) 75 mg DAILY PO 09/25/24 09:00 10/25/24 08:59 10/02/24 09:43 75 MG Enoxaparin Sodium (Lovenox) 40 mg DAILY SQ 09/25/24 09:00 10/25/24 08:59 10/02/24 09:44 40 MG Fluoxetine HCl (FLUoxetine HCL 20 MG CAPSULE) 20 mg DAILY PO 09/25/24 09:00 10/25/24 08:59 10/02/24 09:42 20 MG Gabapentin (NEURontin 100 mg CAP) 100 mg TID PO 09/24/24 14:00 10/24/24 13:59 10/02/24 09:43 100 MG Glipizide (GLUCOtrol 5MG TABLET) 5 mg DAILY PO 09/25/24 09:00 09/30/24 06:38 DC 09/29/24 08:02 5 MG Hydralazine HCl (APRESOLine 20MG INJ) 5 mg Q4H PRN IV ADMINISTER FOR SBP > 160 09/23/24 17:00 10/23/24 16:59 Insulin Human Isoph/Insulin Regular (humuLIN 70-30 VIAL) 40 unit BIDAC SQ 09/24/24 16:30 10/24/24 16:29 10/02/24 09:00 40 UNIT Insulin Human Regular (humuLIN R 100 UNIT/ML 3ML) INSULIN SLIDING SCAL... ACHS SQ 09/23/24 21:00 10/23/24 20:59 10/02/24 11:52 4 UNIT Lactulose (Constulose 20gm/ 30ml Udcup) 20 gm BID PRN PO CONSTIPATION 09/23/24 17:00 10/23/24 16:59 Lisinopril (Prinivil 20mg) 20 mg DAILY PO 09/25/24 09:00 10/25/24 08:59 10/02/24 09:43 20 MG Magnesium Sulfate 50 ml @ 0 mls/hr PROTOCOL IV 09/24/24 11:00 10/24/24 10:59 09/30/24 05:28 25 MLS/HR Magnesium Sulfate 50 ml @ 0 mls/hr PROTOCOL PRN IV low mag level 09/23/24 17:00 09/24/24 10:58 DC Ondansetron HCl (zoFRAN 4MG INJ) 4 mg Q6H PRN IVP NAUSEA/VOMITING 09/23/24 17:00 10/23/24 16:59 Pharmacy Profile Note (Pharmacy Communication) 1 each ONCE MISC 09/23/24 17:30 09/24/24 07:32 DC Piperacillin Sod/ Tazobactam Sod (Zosyn 3.375gm+NS 50ml) 3.375 gm Q8H IV 09/23/24 16:30 09/29/24 12:21 DC 09/29/24 08:01 3.375 GM Potassium Chloride 100 ml @ 100 mls/hr AD PRN IV POTASSIUM PROTOCOL 09/23/24 17:00 10/23/24 16:59 09/26/24 04:45 100 MLS/HR Potassium Chloride (K-Dur/Klor-Con 20meq) 20 meq AD PRN PO POTASSIUM PROTOCOL 09/23/24 17:00 10/23/24 16:59 10/02/24 05:26 20 MEQ Potassium Chloride (KCl 10% Elixir 20meq/15ml) 20 meq AD PRN PO POTASSIUM PROTOCOL 09/23/24 17:00 10/23/24 16:59 Sodium Chloride 1,000 ml @ 75 mls/hr [id number] IV 09/23/24 17:00 10/23/24 16:59 10/01/24 12:07 75 MLS/HR Vancomycin HCl (Vancomycin 1g/ 250ml Kit) 1 gm Q12H IV 09/23/24 16:30 09/25/24 05:02 DC 09/25/24 04:37 1 GM Vancomycin HCl (Vancomycin 1g/ 250ml Kit) 1 gm Q8H IV 09/25/24 12:30 09/29/24 12:21 DC 09/29/24 04:37 1 GM DIAGNOSTICS / RADIOLOGY: [ ] ASSESSMENT: Abscess cellulitis 3rd toe right foot diabetic foot infection, POA Status post I&D 09/24/2024 Osteomyelitis of third distal phalangeal tuft POA Leukocytosis POA DM with Hyperglycemia POA Peripheral neuropathy POA PAD with 50-80% stenosis proximal right SFA and proximal right popliteal artery POA Medical noncompliance POA Possible osteomyelitis focal the 3rd distal phalanx right foot. PLAN: Patient remains admitted to the medical floor Continue the patient on broad-spectrum IV antibiotics, patient DCC input noted and appreciated. Patient evaluated by picking machine operator, MRI reviewed, patient most likely we will need amputation of the 3rd toe. Continue local wound care, continue with physical therapy. Patient will be working with the perinatal social worker for insurance coverage. Podiatry consulted, appreciate recommendations Disposition: Continue reevaluation on Wednesday for possible amputation ARSENIO PATRICK MD Oct 02, 2024 12:52
--- NOTE | 2024-10-02 17:49 | PN ---
INFECTIOUS DISEASE PROGRESS NOTE Date of Service: Oct 02, 2024 SUBJECTIVE: This is a 59-year-old female patient who was seen and examined at bedside in room 330. Patient is awake, alert and oriented x3. Patient with right 3rd toe infection with methicillin sensitive Staphylococcus aureus and Strep agalactiae group B and osteomyelitis. Patient is afebrile today, temperature is 98.4 and a WBC of 9.7. On examination today the left 3rd toe having small amount of purulent drainage. Podiatry following patient and has recommended amputation, patient is pending to decide. Patient continues on cefazolin IV. We will continue to follow patient's care. PHYSICAL EXAM EYES: Anicteric. Pupils equal and reactive. HENT: No oral thrush seen, moist Oral mucosa NECK: Supple, no JVD or thyromegaly. LUNGS: Good air entry. No rales, no rhonchi. CARDIOVASCULAR: S1, S2 regular. No murmur heard. ABDOMEN: Soft, non tender, bowel sounds present, no organomegaly CENTRAL NERVOUS SYSTEM: Awake, alert, oriented x 3. SKIN: No rashes, no swelling. LYMPHATICS: No peripheral lymphadenopathy MUSCULOSKELETAL: No joint swelling, erythema or tenderness. EXTREMITIES: No cyanosis or clubbing. Right 3rd toe diabetic foot ulcer with abscess and osteomyelitis. BACK: No deformity, no pressure ulcer. GENITOURINARY: No dysuria or hematuria. Vital Sign (Last 12 Hours) 10/02/24 10/02/24 10/02/24 10/02/24 08:00 08:00 12:03 15:58 Temp 98.4 98.4 98.8 Pulse 87 89 91 Resp 17 18 18 B/P (MAP) 156/80 136/69 139/75 Pulse Ox 95 95 94 93 O2 Delivery Room Air* Room Air Room Air Room Air O2 Flow Rate 0 FiO2 21 Intake & Output (last 24hrs) 10/01/24 10/01/24 10/02/24 15:00 23:00 07:00 Intake Total 600.0 ml Output Total 475 ml Balance -475 ml 600.0 ml LABS: Laboratory: Test 10/02/24 15:30 10/02/24 03:41 10/01/24 03:44 Range/Units Whole Blood Glucose 155 H 70-110 MG/DL White Blood Count 9.7 4.8-10.8 K/uL Red Blood Count 3.05 L 4.00-5.50 MIL/uL Hemoglobin 9.3 L 12.0-16.0 g/dL Hematocrit 28.9 L 36-48 % Mean Corpuscular Volume 94.8 79-99 fL Mean Corpuscular Hemoglobin 30.5 27.0-33.0 pg Mean Corpuscular Hemoglobin Concent 32.2 32.0-36.0 g/dL Red Cell Distribution Width 13.2 11.0-15.5 % Platelet Count 341 130-400 K/uL Mean Platelet Volume 9.1 7.5-10.5 fL Immature Granulocyte % (Auto) 3.7 H 0-1 % Neutrophils (%) (Auto) 71.7 40.0-77.0 % Lymphocytes (%) (Auto) 14.3 L 21.0-51.0 % Monocytes (%) (Auto) 7.1 3.0-13.0 % Eosinophils (%) (Auto) 2.8 0.0-8.0 % Basophils (%) (Auto) 0.4 0.0-5.0 % Neutrophils # (Auto) 7.0 1.8-7.7 K/uL Lymphocytes # (Auto) 1.4 1.0-4.8 K/uL Monocytes # (Auto) 0.7 0.1-1.0 K/uL Eosinophils # (Auto) 0.27 0.00-0.70 K/uL Basophils # (Auto) 0.04 0.00-0.20 K/uL Absolute Immature Granulocyte (auto 0.36 0-1 K/uL Nucleated Red Blood Cells 0.2 H 0.0-0.19 % Sodium Level 140 136-145 mmol/L Potassium Level 3.7 3.5-5.1 mmol/L Chloride Level 103 101-111 mmol/L Carbon Dioxide Level 31 21-32 mmol/L Blood Urea Nitrogen 14 7-18 mg/dL Creatinine 0.7 0.5-1.0 mg/dL Glomerular Filtration Rate Calc 100 >90 mL/min Random Glucose 105 70-105 mg/dL Total Calcium 8.4 L 8.5-10.1 mg/dL Phosphorus Level 3.9 2.5-4.9 mg/dL Magnesium Level 2.00 1.80-2.40 mg/dL ASSESSMENT: Right 3rd toe osteomyelitis. Right 3rd toe diabetic foot ulcer with abscess. Infection with methicillin sensitive Staphylococcus aureus. Sepsis. History of right great toe amputation. Diabetes mellitus. PLAN: Continue Ancef as currently ordered. Continue monitoring glucose levels. Continue wound care. Continue pain management. Continue antiplatelets. Health Care Aide following patient. We will monitor electrolytes. This case was reviewed and discussed with my supervising physician and the above assessment and plan was formulated and agreed upon. ATTESTATION BY PHYSICIAN I have seen and examined the patient. I reviewed the documentation, medical decision making, and treatment plan as noted by the mid-level provider above. I agree with the findings and plan of care. LUIS ANTONIO SERRANO MD, [facility] Oct 02, 2024 17:49
--- NOTE | 2024-10-02 18:10 | NUR ---
PHYSICIAN ROUNDING Dr. Braden at bedside to assess wound. Patient is to decide on amputation versus discharge home with antibiotics. Sampson recommendation is for amputation. Patient instructed to notify staff by Wednesday10/03/2024 afternoon so that amputation could be put on Wednesday schedule. Patient verbalized understanding.
--- NOTE | 2024-10-02 19:15 | NUR ---
PATIENT DECISION During report with organic gardening teacher nurse, patient verbalized that she is agreeable to move forward with amputation on Wednesday as explained by Dr. Braden.
--- NOTE | 2024-10-02 22:12 | PN ---
PROGRESS NOTE Date of Service: Oct 02, 2024 Time of Service: 22:04 SUBJECTIVE: 59 years old female was seen for follow up on diabetic foot infection to 3rd toe right foot the patient MRI was contributory for osteomyelitis of the distal phalanx of the 3rd toe at this time she still continues with cellulitis and infection. She was recommended amputation of toe to prevent further complications. She still can't make a decision. She is on IV antibiotics. REVIEW OF SYSTEMS CONSTITUTIONAL: Denies fever, chills, or fatigue. HEAD/FACE: No signs of trauma. EENT: Denies eye pain, blurred vision, double vision, or light sensitivity. RESPIRATORY: Denies shortness of breath, cough, wheezing CARDIOVASCULAR: Denies chest pain, palpitation, syncope GASTROINTESTINAL/ABDOMINAL: Denies abdominal pain, constipation, diarrhea, nausea or vomiting GENITOURINARY: Denies dysuria or hematuria. MUSCULOSKELETAL: Denies joint pain, tenderness, or trauma. Osteomyelitis of the distal phalanx of the 3rd toe right foot. INTEGUMENTARY: Abscess formation periungual on the 3rd toe right foot. Ulcer distal toe edema erythema and osteomyelitis NEUROLOGICAL/PSYCH: Denies anxiety, depression, heat or cold intolerance. PHYSICAL EXAM EYES: Anicteric. Pupils equal and reactive. HENT: No oral thrush seen, moist Oral mucosa NECK: Supple, no JVD or thyromegaly. LUNGS: Good air entry. No rales, no rhonchi. CARDIOVASCULAR: S1, S2 regular. No murmur heard. ABDOMEN: Soft, non tender, bowel sounds present, no organomegaly CENTRAL NERVOUS SYSTEM: Awake, alert, oriented x 3. No focal deficits. SKIN: Swelling pus blister formation periungual area of 3rd toe right foot and distal aspect of the 3rd toe right foot LYMPHATICS: No peripheral lymphadenopathy MUSCULOSKELETAL: No joint swelling, erythema or tenderness. MRI positive for osteomyelitis of 3rd toe right foot. EXTREMITIES: No cyanosis or clubbing BACK: No deformity, no pressure ulcer. GENITOURINARY: No dysuria or hematuria Vital Signs (last 8hr) Date Time Temp Pulse Resp B/P (MAP) Pulse Ox O2 Delivery O2 Flow Rate FiO2 10/02/24 20:00 99.0 91 18 157/81 97 Room Air 10/02/24 18:15 72 17 161/62 96 Nasal Cannula 2.0 10/02/24 17:15 78 17 141/59 94 Nasal Cannula 3.0 10/02/24 15:58 98.8 91 18 139/75 93 Room Air LABS: Laboratory: Test 10/02/24 19:09 10/02/24 03:41 10/01/24 03:44 Range/Units Whole Blood Glucose 134 H 70-110 MG/DL White Blood Count 9.7 4.8-10.8 K/uL Red Blood Count 3.05 L 4.00-5.50 MIL/uL Hemoglobin 9.3 L 12.0-16.0 g/dL Hematocrit 28.9 L 36-48 % Mean Corpuscular Volume 94.8 79-99 fL Mean Corpuscular Hemoglobin 30.5 27.0-33.0 pg Mean Corpuscular Hemoglobin Concent 32.2 32.0-36.0 g/dL Red Cell Distribution Width 13.2 11.0-15.5 % Platelet Count 341 130-400 K/uL Mean Platelet Volume 9.1 7.5-10.5 fL Immature Granulocyte % (Auto) 3.7 H 0-1 % Neutrophils (%) (Auto) 71.7 40.0-77.0 % Lymphocytes (%) (Auto) 14.3 L 21.0-51.0 % Monocytes (%) (Auto) 7.1 3.0-13.0 % Eosinophils (%) (Auto) 2.8 0.0-8.0 % Basophils (%) (Auto) 0.4 0.0-5.0 % Neutrophils # (Auto) 7.0 1.8-7.7 K/uL Lymphocytes # (Auto) 1.4 1.0-4.8 K/uL Monocytes # (Auto) 0.7 0.1-1.0 K/uL Eosinophils # (Auto) 0.27 0.00-0.70 K/uL Basophils # (Auto) 0.04 0.00-0.20 K/uL Absolute Immature Granulocyte (auto 0.36 0-1 K/uL Nucleated Red Blood Cells 0.2 H 0.0-0.19 % Sodium Level 140 136-145 mmol/L Potassium Level 3.7 3.5-5.1 mmol/L Chloride Level 103 101-111 mmol/L Carbon Dioxide Level 31 21-32 mmol/L Blood Urea Nitrogen 14 7-18 mg/dL Creatinine 0.7 0.5-1.0 mg/dL Glomerular Filtration Rate Calc 100 >90 mL/min Random Glucose 105 70-105 mg/dL Total Calcium 8.4 L 8.5-10.1 mg/dL Phosphorus Level 3.9 2.5-4.9 mg/dL Magnesium Level 2.00 1.80-2.40 mg/dL DIAGNOSTICS / RADIOLOGY: MRI contributory for osteomyelitis 3rd toe right foot. ASSESSMENT: Abscess cellulitis 3rd toe right foot diabetic foot infection Osteomyelitis 3rd toe right foot. PLAN: Continue IV antibiotics and local wound care topical antibiotics to the toe. Recommended amputation of toe to prevent future problems. Risks and benefits explained patient will discuss decision with family and plan for surgery will be for Wednesday if patient agree with plan. ALIE GOOD DPM Oct 02, 2024 22:11
[2024-10-03] VITALS (8 sets, daily range): BP systolic 132–158; BP diastolic 67–85; PULSE 85–89; RESP 16–18; TEMP 98.2–98.9; O2SAT 93–96
[2024-10-03 04:11] LABS: BASOPHILS # (AUTO) 0.05 K/uL (0.00-0.20); BASOPHILS % (AUTO) 0.4 % (0.0-5.0); EOSINOPHILS # (AUTO) 0.27 K/uL (0.00-0.70); EOSINOPHILS % (AUTO) 2.3 % (0.0-8.0); HEMATOCRIT 29.3 % (36-48); IMMATURE GRANULOCYTE ABSOLUTE 0.26 K/uL (0-1); LYMPHOCYTES # (AUTO) 1.7 K/uL (1.0-4.8); LYMPHOCYTES % (AUTO) 14.6 % (21.0-51.0); MEAN CORPUSCULAR HEMOGLOBIN 29.9 pg (27.0-33.0); MEAN CORPUSCULAR HGB CONC 31.4 g/dL (32.0-36.0); MEAN CORPUSCULAR VOLUME 95.1 fL (79-99); MONOCYTES # (AUTO) 0.9 K/uL (0.1-1.0); MONOCYTES % (AUTO) 7.4 % (3.0-13.0); NEUTROPHILS # (AUTO) 8.4 K/uL (1.8-7.7); PLATELET COUNT (AUTO) 394 K/uL (130-400); RED BLOOD CELL COUNT(AUTO) 3.08 MIL/uL (4.00-5.50); RED CELL DISTRIBUTION WIDTH 13.4 % (11.0-15.5); WHITE BLOOD COUNT (AUTO) 11.5 K/uL (4.8-10.8)
[2024-10-03 04:23] LABS: CREATININE 0.7 mg/dL (0.5-1.0); POTASSIUM 3.9 mmol/L (3.5-5.1)
--- NOTE | 2024-10-03 11:28 | NUR ---
[facility] Follow-up: Patient re-assessed by wound healing team. See wound assessment. Assessment and recommendations provided to primary nurse. Education provided. Wound care done. Addendum: 10/04/24 at 1543 by MITCH SALINAS RN RN/ Amended: Links added.
--- NOTE | 2024-10-03 19:29 | PN ---
[facility] PROGRESS NOTE Date of Service: Oct 03, 2024 Time of Service: 19:28 SUBJECTIVE: This is a 59-year-old presented in ED with concern of her right 3rd toe swelling and redness and decided to come to ED for further evaluation. Onset for several days. Patient reported no injury to foot. Patient reported she has peripheral neuropathy. Noted cellulitis and discoloration of 3rd toe no drainage. She denied fever chills. Patient admitted to the medical floor for further evaluation and medical management. X-ray of the right foot was done, no evidence for fracture or subluxation. Arterial Doppler done, 50-80% stenosis of the proximal right SFA and proximal right popliteal artery, monophasic flow of the bilateral distal anterior tibial arteries as well as along the bilateral dorsalis pedis. Patient remains hemodynamically stable, afebrile, saturating normal on room air, WBC trending down 12.6. Magnesium 1.7. Patient is currently getting IV antibiotics during my visit. 09/25 patient is seen and examined at bedside, case discussed with the RN, no acute events overnight, hemodynamically stable. Patient evaluated by cost report clerk yesterday, I and D performed at bedside. We will continue with current pain medication, IV antibiotics, dressing changes. Patient evaluated by mangle catcher, patient has been. Plavix 75 mg p.o. daily added. Follow results of MRI of the right foot, if osteomyelitis confirmed, may need to consider invasive Angiography versus CTA runoff. 09/26 patient is seen and examined at bedside, patient is still spiking fever, she is alert oriented x3, hemodynamically stable, maximum temperature last night 101.5. Septic workup reviewed, so far blood cultures negative, and aerobic culture preliminary report no growth yet. Aorta runoff normal examination, no significant vascular abnormalities identified, no significant peripheral vascular disease, runoff is preserved bilaterally. In the MRI to the right foot. Continue broad-spectrum IV antibiotics. Continue dressing changes to the right foot per Podiatry recommendations. 09/27 patient is seen and examined at bedside, case discussed with the RN, no acute events overnight, during my visit patient comfortably in bed, alert oriented x3, hemodynamically stable, results of MRI to the right foot with po ssible osteomyelitis, involving the 3rd distal phalanx. Discussed with the patient. 09/28 patient is seen and examined at bedside, case discussed with the RN, no acute events overnight, patient getting IV antibiotics at the time of my visit, getting good pain control with current medical management. No chest pain, no nausea, no vomiting, patient had slight temperature 100.2 last night. Persistent leukocytosis 11.5. Hemoglobin 9.7, hematocrit 29.8. Patient evaluated by cost report clerk, patient most likely we will require amputation of the 3rd toe continue local wound care. 09/29 patient is seen and examined at bedside, case discussed with the RN, no acute events overnight, patient getting IV antibiotics at the time of my visit, getting good pain control with current medical management. Patient is still spiking fever, last night 101.7. Patient evaluated by cost report clerk, MRI reviewed, patient most likely will need amputation of the 3rd toe. Continue local wound care, continue with physical therapy. Patient will be working with the older adult social work specialist for insurance coverage. Podiatry to revisit this week to allow patient to make decision regarding surgical intervention. 09/30 patient seen at bedside, no acute events overnight. Podiatry recommended continue antibiotics until Wednesday at which time they will reassess for possible amputation versus continued medical management. He has no complaints at this time, vitals and labs are relatively unremarkable. 10/01 Pt seen at bedside, no acute events overnight. Continue antibiotics until Wednesday. Vitals and labs relatively unremarkable 10/02 Pt seen at bedside, no acute events overnight. Pending podiatry reevaluation today, will follow up with their recommendations. 10/03 patient seen at bedside, no acute events overnight. Podiatry discuss options with the patient and she decided she we will go ahead with amputation, we will be scheduled for tomorrow. We will follow up postprocedure. REVIEW OF SYSTEMS a 14 point ROS obtained all relevant positive documented otherwise ROS negative PHYSICAL EXAM GENERAL APPEARANCE: The patient is awake, alert, and oriented, in no acute cardiopulmonary distress. NEUROLOGICAL: Cranial nerves II-XII grossly intact. Motor is 5/5 in bilateral upper and lower extremities proximal to distal. No sensory deficits. HEENT: Face is symmetric. Pupils are equal and reactive. Extraocular movements are intact. NECK: Supple. No JVD. No thyromegaly. No submental, submandibular, pre- /postauricular, occipital or supraclavicular lymphadenopathy. CHEST: Normal chest expansion. No Telemetry. LUNGS: Absence of any rales, rhonchi or any wheezing. CARDIOVASCULAR: Regular. S1 and S2 normal. No appreciable rubs, murmurs or gallops. ABDOMEN: Soft, nontender, and nondistended. There is no rebound, voluntary guarding, or rigidity. : Deferred. No Best. EXTREMITIES: Non-edematous and not cyanotic. No clubbing. Good capillary refill. Right foot 3rd toe swollen erythematous. Amputation to the right great toe. Palpable pedal pulses. SKIN: No skin breakdown. Vital Signs (last 8hr) Date Time Temp Pulse Resp B/P (MAP) Pulse Ox O2 Delivery O2 Flow Rate FiO2 10/03/24 16:00 99.0 87 18 158/85 96 Room Air 10/03/24 11:58 98.2 85 17 140/71 93 Room Air LABS: Laboratory: Test 10/03/24 19:07 10/03/24 03:50 Range/Units Whole Blood Glucose 216 H 70-110 MG/DL White Blood Count 11.5 H 4.8-10.8 K/uL Red Blood Count 3.08 L 4.00-5.50 MIL/uL Hemoglobin 9.2 L 12.0-16.0 g/dL Hematocrit 29.3 L 36-48 % Mean Corpuscular Volume 95.1 79-99 fL Mean Corpuscular Hemoglobin 29.9 27.0-33.0 pg Mean Corpuscular Hemoglobin Concent 31.4 L 32.0-36.0 g/dL Red Cell Distribution Width 13.4 11.0-15.5 % Platelet Count 394 130-400 K/uL Mean Platelet Volume 9.1 7.5-10.5 fL Immature Granulocyte % (Auto) 2.3 H 0-1 % Neutrophils (%) (Auto) 73.0 40.0-77.0 % Lymphocytes (%) (Auto) 14.6 L 21.0-51.0 % Monocytes (%) (Auto) 7.4 3.0-13.0 % Eosinophils (%) (Auto) 2.3 0.0-8.0 % Basophils (%) (Auto) 0.4 0.0-5.0 % Neutrophils # (Auto) 8.4 H 1.8-7.7 K/uL Lymphocytes # (Auto) 1.7 1.0-4.8 K/uL Monocytes # (Auto) 0.9 0.1-1.0 K/uL Eosinophils # (Auto) 0.27 0.00-0.70 K/uL Basophils # (Auto) 0.05 0.00-0.20 K/uL Absolute Immature Granulocyte (auto 0.26 0-1 K/uL Nucleated Red Blood Cells 0.0 0.0-0.19 % Sodium Level 141 136-145 mmol/L Potassium Level 3.9 3.5-5.1 mmol/L Chloride Level 103 101-111 mmol/L Carbon Dioxide Level 34 H 21-32 mmol/L Blood Urea Nitrogen 15 7-18 mg/dL Creatinine 0.7 0.5-1.0 mg/dL Glomerular Filtration Rate Calc 100 >90 mL/min Random Glucose 91 70-105 mg/dL Total Calcium 8.5 8.5-10.1 mg/dL Current Medications Medications (Trade) Dose Ordered Sig/David Route PRN Reason Start Time Stop Time Status Last Admin Dose Admin Acetaminophen (TYLenol 325MG TAB) 650 mg Q4H PRN PO TEMPERATURE GREATER THAN 101.5 09/23/24 17:00 10/23/24 16:59 09/28/24 20:03 650 MG Acetaminophen/ Codeine Phosphate (TYLenol-coDEINE TAB) 1 tab Q4H PRN PO MODERATE PAIN (4-6) 09/23/24 17:00 10/23/24 16:59 Aspirin (Aspirin 81mg Ec Tab) 81 mg DAILY PO 09/25/24 09:00 10/25/24 08:59 10/03/24 08:27 81 MG Atorvastatin Calcium (LIPItor 40MG) 80 mg DAILY PO 09/25/24 09:00 10/25/24 08:59 10/03/24 08:28 80 MG Bacitracin (Bacitracin 28.4gm) 1 PATRICK AD DAILY TP 09/25/24 09:00 10/25/24 08:59 10/02/24 09:44 1 GM Cefazolin Sodium (Ancef) 2 gm Q8H IVPB 09/29/24 12:30 10/20/24 12:29 10/03/24 11:30 2 GM Clopidogrel Bisulfate (plaVIX 75MG) 75 mg DAILY PO 09/25/24 09:00 10/25/24 08:59 10/03/24 08:27 75 MG Enoxaparin Sodium (Lovenox) 40 mg DAILY SQ 09/25/24 09:00 10/25/24 08:59 10/03/24 08:27 40 MG Fluoxetine HCl (FLUoxetine HCL 20 MG CAPSULE) 20 mg DAILY PO 09/25/24 09:00 10/25/24 08:59 10/03/24 08:27 20 MG Gabapentin (NEURontin 100 mg CAP) 100 mg TID PO 09/24/24 14:00 10/24/24 13:59 10/03/24 16:21 100 MG Glipizide (GLUCOtrol 5MG TABLET) 5 mg DAILY PO 09/25/24 09:00 09/30/24 06:38 DC 09/29/24 08:02 5 MG Hydralazine HCl (APRESOLine 20MG INJ) 5 mg Q4H PRN IV ADMINISTER FOR SBP > 160 09/23/24 17:00 10/23/24 16:59 Insulin Human Isoph/Insulin Regular (humuLIN 70-30 VIAL) 40 unit BIDAC SQ 09/24/24 16:30 10/24/24 16:29 10/03/24 16:16 40 UNIT Insulin Human Regular (humuLIN R 100 UNIT/ML 3ML) INSULIN SLIDING SCAL... ACHS SQ 09/23/24 21:00 10/23/24 20:59 10/03/24 16:19 8 UNIT Lactulose (Constulose 20gm/ 30ml Udcup) 20 gm BID PRN PO CONSTIPATION 09/23/24 17:00 10/23/24 16:59 Lisinopril (Prinivil 20mg) 20 mg DAILY PO 09/25/24 09:00 10/25/24 08:59 10/03/24 08:28 20 MG Magnesium Sulfate 50 ml @ 0 mls/hr PROTOCOL IV 09/24/24 11:00 10/24/24 10:59 09/30/24 05:28 25 MLS/HR Magnesium Sulfate 50 ml @ 0 mls/hr PROTOCOL PRN IV low mag level 09/23/24 17:00 09/24/24 10:58 DC Ondansetron HCl (zoFRAN 4MG INJ) 4 mg Q6H PRN IVP NAUSEA/VOMITING 09/23/24 17:00 10/23/24 16:59 Pharmacy Profile Note (Pharmacy Communication) 1 each ONCE MISC 09/23/24 17:30 09/24/24 07:32 DC Piperacillin Sod/ Tazobactam Sod (Zosyn 3.375gm+NS 50ml) 3.375 gm Q8H IV 09/23/24 16:30 09/29/24 12:21 DC 09/29/24 08:01 3.375 GM Potassium Chloride 100 ml @ 100 mls/hr AD PRN IV POTASSIUM PROTOCOL 09/23/24 17:00 10/23/24 16:59 09/26/24 04:45 100 MLS/HR Potassium Chloride (K-Dur/Klor-Con 20meq) 20 meq AD PRN PO POTASSIUM PROTOCOL 09/23/24 17:00 10/23/24 16:59 10/02/24 12:47 20 MEQ Potassium Chloride (KCl 10% Elixir 20meq/15ml) 20 meq AD PRN PO POTASSIUM PROTOCOL 09/23/24 17:00 10/23/24 16:59 Sodium Chloride 1,000 ml @ 75 mls/hr [id number] IV 09/23/24 17:00 10/23/24 16:59 10/03/24 16:22 75 MLS/HR Vancomycin HCl (Vancomycin 1g/ 250ml Kit) 1 gm Q12H IV 09/23/24 16:30 09/25/24 05:02 DC 09/25/24 04:37 1 GM Vancomycin HCl (Vancomycin 1g/ 250ml Kit) 1 gm Q8H IV 09/25/24 12:30 09/29/24 12:21 DC 09/29/24 04:37 1 GM DIAGNOSTICS / RADIOLOGY: [ ] ASSESSMENT: Abscess cellulitis 3rd toe right foot diabetic foot infection, POA Status post I&D 09/24/2024 Osteomyelitis of third distal phalangeal tuft POA Leukocytosis POA DM with Hyperglycemia POA Peripheral neuropathy POA PAD with 50-80% stenosis proximal right SFA and proximal right popliteal artery POA Medical noncompliance POA Possible osteomyelitis focal the 3rd distal phalanx right foot. PLAN: Patient remains admitted to the medical floor Continue the patient on broad-spectrum IV antibiotics, patient DCC input noted and appreciated. Patient evaluated by cost report clerk, MRI reviewed, patient most likely we will need amputation of the 3rd toe. Continue local wound care, continue with physical therapy. Patient will be working with the older adult social work specialist for insurance coverage. Podiatry consulted, appreciate recommendations Disposition: Pending amputation tomorrow and postop course ARSENIO PATRICK MD Oct 03, 2024 19:29
--- NOTE | 2024-10-03 22:01 | PN ---
INFECTIOUS DISEASE PROGRESS NOTE Date of Service: Oct 03, 2024 SUBJECTIVE: This is a 59-year-old female patient who was seen and examined at bedside in room 330. Patient is awake, alert and oriented x3. Patient with right 3rd toe diabetic foot ulcer with abscess and osteomyelitis. Patient has been scheduled for amputation for tomorrow. The WBC s slightly elevated at 11.5 today but no fever, temperature is 98.2. We will continue on cefazolin IV. We will continue to follow patient's care. PHYSICAL EXAM EYES: Anicteric. Pupils equal and reactive. HENT: No oral thrush seen, moist Oral mucosa NECK: Supple, no JVD or thyromegaly. LUNGS: Good air entry. No rales, no rhonchi. CARDIOVASCULAR: S1, S2 regular. No murmur heard. ABDOMEN: Soft, non tender, bowel sounds present, no organomegaly CENTRAL NERVOUS SYSTEM: Awake, alert, oriented x 3. SKIN: No rashes, no swelling. LYMPHATICS: No peripheral lymphadenopathy MUSCULOSKELETAL: No joint swelling, erythema or tenderness. EXTREMITIES: No cyanosis or clubbing. Right 3rd toe diabetic foot ulcer with abscess and osteomyelitis. BACK: No deformity, no pressure ulcer. GENITOURINARY: No dysuria or hematuria. Vital Sign (Last 12 Hours) 10/03/24 10/03/24 10/03/24 11:58 16:00 20:00 Temp 98.2 99.0 98.8 Pulse 85 87 89 Resp 17 18 17 B/P (MAP) 140/71 158/85 133/67 Pulse Ox 93 96 95 O2 Delivery Room Air Room Air Room Air Intake & Output (last 24hrs) 10/02/24 10/02/24 10/03/24 15:00 23:00 07:00 Intake Total 100.0 ml 580.0 ml Balance 100.0 ml 580.0 ml LABS: Laboratory: Test 10/03/24 19:07 10/03/24 03:50 Range/Units Whole Blood Glucose 216 H 70-110 MG/DL White Blood Count 11.5 H 4.8-10.8 K/uL Red Blood Count 3.08 L 4.00-5.50 MIL/uL Hemoglobin 9.2 L 12.0-16.0 g/dL Hematocrit 29.3 L 36-48 % Mean Corpuscular Volume 95.1 79-99 fL Mean Corpuscular Hemoglobin 29.9 27.0-33.0 pg Mean Corpuscular Hemoglobin Concent 31.4 L 32.0-36.0 g/dL Red Cell Distribution Width 13.4 11.0-15.5 % Platelet Count 394 130-400 K/uL Mean Platelet Volume 9.1 7.5-10.5 fL Immature Granulocyte % (Auto) 2.3 H 0-1 % Neutrophils (%) (Auto) 73.0 40.0-77.0 % Lymphocytes (%) (Auto) 14.6 L 21.0-51.0 % Monocytes (%) (Auto) 7.4 3.0-13.0 % Eosinophils (%) (Auto) 2.3 0.0-8.0 % Basophils (%) (Auto) 0.4 0.0-5.0 % Neutrophils # (Auto) 8.4 H 1.8-7.7 K/uL Lymphocytes # (Auto) 1.7 1.0-4.8 K/uL Monocytes # (Auto) 0.9 0.1-1.0 K/uL Eosinophils # (Auto) 0.27 0.00-0.70 K/uL Basophils # (Auto) 0.05 0.00-0.20 K/uL Absolute Immature Granulocyte (auto 0.26 0-1 K/uL Nucleated Red Blood Cells 0.0 0.0-0.19 % Sodium Level 141 136-145 mmol/L Potassium Level 3.9 3.5-5.1 mmol/L Chloride Level 103 101-111 mmol/L Carbon Dioxide Level 34 H 21-32 mmol/L Blood Urea Nitrogen 15 7-18 mg/dL Creatinine 0.7 0.5-1.0 mg/dL Glomerular Filtration Rate Calc 100 >90 mL/min Random Glucose 91 70-105 mg/dL Total Calcium 8.5 8.5-10.1 mg/dL ASSESSMENT: Right 3rd toe osteomyelitis. Right 3rd toe diabetic foot ulcer with abscess. Infection with methicillin sensitive Staphylococcus aureus. Sepsis. History of right great toe amputation. Diabetes mellitus. PLAN: Continue Ancef as currently ordered. Continue monitoring glucose levels. Continue wound care. Continue pain management. Continue antiplatelets. Cream Buyer following patient and scheduled for right 3rd toe amputation for tomorrow. This case was reviewed and discussed with my supervising physician and the above assessment and plan was formulated and agreed upon. ATTESTATION BY PHYSICIAN I have seen and examined the patient. I reviewed the documentation, medical decision making, and treatment plan as noted by the mid-level provider above. I agree with the findings and plan of care. LUIS ANTONIO SERRANO MD, [facility] Oct 03, 2024 22:01
[2024-10-04] VITALS (9 sets, daily range): BP systolic 127–163; BP diastolic 67–80; PULSE 65–90; RESP 16–20; TEMP 98.1–98.5; O2SAT 94–96
--- NOTE | 2024-10-04 16:20 | PN ---
[facility] PROGRESS NOTE Date of Service: Oct 04, 2024 Time of Service: 16:19 SUBJECTIVE: This is a 59-year-old presented in ED with concern of her right 3rd toe swelling and redness and decided to come to ED for further evaluation. Onset for several days. Patient reported no injury to foot. Patient reported she has peripheral neuropathy. Noted cellulitis and discoloration of 3rd toe no drainage. She denied fever chills. Patient admitted to the medical floor for further evaluation and medical management. X-ray of the right foot was done, no evidence for fracture or subluxation. Arterial Doppler done, 50-80% stenosis of the proximal right SFA and proximal right popliteal artery, monophasic flow of the bilateral distal anterior tibial arteries as well as along the bilateral dorsalis pedis. Patient remains hemodynamically stable, afebrile, saturating normal on room air, WBC trending down 12.6. Magnesium 1.7. Patient is currently getting IV antibiotics during my visit. 09/25 patient is seen and examined at bedside, case discussed with the RN, no acute events overnight, hemodynamically stable. Patient evaluated by ornament stapler yesterday, I and D performed at bedside. We will continue with current pain medication, IV antibiotics, dressing changes. Patient evaluated by quality internship, patient has been. Plavix 75 mg p.o. daily added. Follow results of MRI of the right foot, if osteomyelitis confirmed, may need to consider invasive Angiography versus CTA runoff. 09/26 patient is seen and examined at bedside, patient is still spiking fever, she is alert oriented x3, hemodynamically stable, maximum temperature last night 101.5. Septic workup reviewed, so far blood cultures negative, and aerobic culture preliminary report no growth yet. Aorta runoff normal examination, no significant vascular abnormalities identified, no significant peripheral vascular disease, runoff is preserved bilaterally. In the MRI to the right foot. Continue broad-spectrum IV antibiotics. Continue dressing changes to the right foot per Podiatry recommendations. 09/27 patient is seen and examined at bedside, case discussed with the RN, no acute events overnight, during my visit patient comfortably in bed, alert oriented x3, hemodynamically stable, results of MRI to the right foot with po ssible osteomyelitis, involving the 3rd distal phalanx. Discussed with the patient. 09/28 patient is seen and examined at bedside, case discussed with the RN, no acute events overnight, patient getting IV antibiotics at the time of my visit, getting good pain control with current medical management. No chest pain, no nausea, no vomiting, patient had slight temperature 100.2 last night. Persistent leukocytosis 11.5. Hemoglobin 9.7, hematocrit 29.8. Patient evaluated by ornament stapler, patient most likely we will require amputation of the 3rd toe continue local wound care. 09/29 patient is seen and examined at bedside, case discussed with the RN, no acute events overnight, patient getting IV antibiotics at the time of my visit, getting good pain control with current medical management. Patient is still spiking fever, last night 101.7. Patient evaluated by ornament stapler, MRI reviewed, patient most likely will need amputation of the 3rd toe. Continue local wound care, continue with physical therapy. Patient will be working with the hospice social worker for insurance coverage. Podiatry to revisit this week to allow patient to make decision regarding surgical intervention. 09/30 patient seen at bedside, no acute events overnight. Podiatry recommended continue antibiotics until Wednesday at which time they will reassess for possible amputation versus continued medical management. He has no complaints at this time, vitals and labs are relatively unremarkable. 10/01 Pt seen at bedside, no acute events overnight. Continue antibiotics until Wednesday. Vitals and labs relatively unremarkable 10/02 Pt seen at bedside, no acute events overnight. Pending podiatry reevaluation today, will follow up with their recommendations. 10/03 patient seen at bedside, no acute events overnight. Podiatry discuss options with the patient and she decided she we will go ahead with amputation, we will be scheduled for tomorrow. We will follow up postprocedure. 10/04 patient seen at bedside, no acute events overnight. Amputation rescheduled again for tomorrow. Lab holiday today, repeat labs tomorrow REVIEW OF SYSTEMS a 14 point ROS obtained all relevant positive documented otherwise ROS negative PHYSICAL EXAM GENERAL APPEARANCE: The patient is awake, alert, and oriented, in no acute cardiopulmonary distress. NEUROLOGICAL: Cranial nerves II-XII grossly intact. Motor is 5/5 in bilateral upper and lower extremities proximal to distal. No sensory deficits. HEENT: Face is symmetric. Pupils are equal and reactive. Extraocular movements are intact. NECK: Supple. No JVD. No thyromegaly. No submental, submandibular, pre- /postauricular, occipital or supraclavicular lymphadenopathy. CHEST: Normal chest expansion. No Telemetry. LUNGS: Absence of any rales, rhonchi or any wheezing. CARDIOVASCULAR: Regular. S1 and S2 normal. No appreciable rubs, murmurs or gallops. ABDOMEN: Soft, nontender, and nondistended. There is no rebound, voluntary guarding, or rigidity. : Deferred. No Best. EXTREMITIES: Non-edematous and not cyanotic. No clubbing. Good capillary refill. Right foot 3rd toe swollen erythematous. Amputation to the right great toe. Palpable pedal pulses. SKIN: No skin breakdown. Vital Signs (last 8hr) Date Time Temp Pulse Resp B/P (MAP) Pulse Ox O2 Delivery O2 Flow Rate FiO2 10/04/24 16:01 98.2 83 16 142/74 98 Room Air 10/04/24 11:29 98.1 85 17 162/78 98 Room Air LABS: Laboratory: Test 10/04/24 15:29 10/03/24 03:50 Range/Units Whole Blood Glucose 182 H 70-110 MG/DL White Blood Count 11.5 H 4.8-10.8 K/uL Red Blood Count 3.08 L 4.00-5.50 MIL/uL Hemoglobin 9.2 L 12.0-16.0 g/dL Hematocrit 29.3 L 36-48 % Mean Corpuscular Volume 95.1 79-99 fL Mean Corpuscular Hemoglobin 29.9 27.0-33.0 pg Mean Corpuscular Hemoglobin Concent 31.4 L 32.0-36.0 g/dL Red Cell Distribution Width 13.4 11.0-15.5 % Platelet Count 394 130-400 K/uL Mean Platelet Volume 9.1 7.5-10.5 fL Immature Granulocyte % (Auto) 2.3 H 0-1 % Neutrophils (%) (Auto) 73.0 40.0-77.0 % Lymphocytes (%) (Auto) 14.6 L 21.0-51.0 % Monocytes (%) (Auto) 7.4 3.0-13.0 % Eosinophils (%) (Auto) 2.3 0.0-8.0 % Basophils (%) (Auto) 0.4 0.0-5.0 % Neutrophils # (Auto) 8.4 H 1.8-7.7 K/uL Lymphocytes # (Auto) 1.7 1.0-4.8 K/uL Monocytes # (Auto) 0.9 0.1-1.0 K/uL Eosinophils # (Auto) 0.27 0.00-0.70 K/uL Basophils # (Auto) 0.05 0.00-0.20 K/uL Absolute Immature Granulocyte (auto 0.26 0-1 K/uL Nucleated Red Blood Cells 0.0 0.0-0.19 % Sodium Level 141 136-145 mmol/L Potassium Level 3.9 3.5-5.1 mmol/L Chloride Level 103 101-111 mmol/L Carbon Dioxide Level 34 H 21-32 mmol/L Blood Urea Nitrogen 15 7-18 mg/dL Creatinine 0.7 0.5-1.0 mg/dL Glomerular Filtration Rate Calc 100 >90 mL/min Random Glucose 91 70-105 mg/dL Total Calcium 8.5 8.5-10.1 mg/dL Current Medications Medications (Trade) Dose Ordered Sig/David Route PRN Reason Start Time Stop Time Status Last Admin Dose Admin Acetaminophen (TYLenol 325MG TAB) 650 mg Q4H PRN PO TEMPERATURE GREATER THAN 101.5 09/23/24 17:00 10/23/24 16:59 09/28/24 20:03 650 MG Acetaminophen/ Codeine Phosphate (TYLenol-coDEINE TAB) 1 tab Q4H PRN PO MODERATE PAIN (4-6) 09/23/24 17:00 10/23/24 16:59 Aspirin (Aspirin 81mg Ec Tab) 81 mg DAILY PO 09/25/24 09:00 10/25/24 08:59 10/04/24 08:22 81 MG Atorvastatin Calcium (LIPItor 40MG) 80 mg DAILY PO 09/25/24 09:00 10/25/24 08:59 10/04/24 08:22 80 MG Bacitracin (Bacitracin 28.4gm) 1 PATRICK AD DAILY TP 09/25/24 09:00 10/25/24 08:59 10/04/24 08:23 1 GM Cefazolin Sodium (Ancef) 2 gm Q8H IVPB 09/29/24 12:30 10/20/24 12:29 10/04/24 11:51 2 GM Clopidogrel Bisulfate (plaVIX 75MG) 75 mg DAILY PO 09/25/24 09:00 10/25/24 08:59 10/04/24 08:23 75 MG Enoxaparin Sodium (Lovenox) 40 mg DAILY SQ 09/25/24 09:00 10/25/24 08:59 10/03/24 08:27 40 MG Fluoxetine HCl (FLUoxetine HCL 20 MG CAPSULE) 20 mg DAILY PO 09/25/24 09:00 10/25/24 08:59 10/04/24 08:23 20 MG Gabapentin (NEURontin 100 mg CAP) 100 mg TID PO 09/24/24 14:00 10/24/24 13:59 10/04/24 14:01 100 MG Glipizide (GLUCOtrol 5MG TABLET) 5 mg DAILY PO 09/25/24 09:00 09/30/24 06:38 DC 09/29/24 08:02 5 MG Hydralazine HCl (APRESOLine 20MG INJ) 5 mg Q4H PRN IV ADMINISTER FOR SBP > 160 09/23/24 17:00 10/23/24 16:59 Insulin Human Isoph/Insulin Regular (humuLIN 70-30 VIAL) 40 unit BIDAC SQ 09/24/24 16:30 10/24/24 16:29 10/04/24 06:20 40 UNIT Insulin Human Regular (humuLIN R 100 UNIT/ML 3ML) INSULIN SLIDING SCAL... ACHS SQ 09/23/24 21:00 10/23/24 20:59 10/04/24 06:19 8 UNIT Lactulose (Constulose 20gm/ 30ml Udcup) 20 gm BID PRN PO CONSTIPATION 09/23/24 17:00 10/23/24 16:59 Lisinopril (Prinivil 20mg) 20 mg DAILY PO 09/25/24 09:00 10/25/24 08:59 10/04/24 08:22 20 MG Magnesium Sulfate 50 ml @ 0 mls/hr PROTOCOL IV 09/24/24 11:00 10/24/24 10:59 09/30/24 05:28 25 MLS/HR Magnesium Sulfate 50 ml @ 0 mls/hr PROTOCOL PRN IV low mag level 09/23/24 17:00 09/24/24 10:58 DC Ondansetron HCl (zoFRAN 4MG INJ) 4 mg Q6H PRN IVP NAUSEA/VOMITING 09/23/24 17:00 10/23/24 16:59 Pharmacy Profile Note (Pharmacy Communication) 1 each ONCE MISC 09/23/24 17:30 09/24/24 07:32 DC Piperacillin Sod/ Tazobactam Sod (Zosyn 3.375gm+NS 50ml) 3.375 gm Q8H IV 09/23/24 16:30 09/29/24 12:21 DC 09/29/24 08:01 3.375 GM Potassium Chloride 100 ml @ 100 mls/hr AD PRN IV POTASSIUM PROTOCOL 09/23/24 17:00 10/23/24 16:59 09/26/24 04:45 100 MLS/HR Potassium Chloride (K-Dur/Klor-Con 20meq) 20 meq AD PRN PO POTASSIUM PROTOCOL 09/23/24 17:00 10/23/24 16:59 10/02/24 12:47 20 MEQ Potassium Chloride (KCl 10% Elixir 20meq/15ml) 20 meq AD PRN PO POTASSIUM PROTOCOL 09/23/24 17:00 10/23/24 16:59 Sodium Chloride 1,000 ml @ 75 mls/hr [id number] IV 09/23/24 17:00 10/23/24 16:59 10/04/24 04:07 75 MLS/HR Vancomycin HCl (Vancomycin 1g/ 250ml Kit) 1 gm Q12H IV 09/23/24 16:30 09/25/24 05:02 DC 09/25/24 04:37 1 GM Vancomycin HCl (Vancomycin 1g/ 250ml Kit) 1 gm Q8H IV 09/25/24 12:30 09/29/24 12:21 DC 09/29/24 04:37 1 GM DIAGNOSTICS / RADIOLOGY: [ ] ASSESSMENT: Abscess cellulitis 3rd toe right foot diabetic foot infection, POA Status post I&D 09/24/2024 Osteomyelitis of third distal phalangeal tuft POA Leukocytosis POA DM with Hyperglycemia POA Peripheral neuropathy POA PAD with 50-80% stenosis proximal right SFA and proximal right popliteal artery POA Medical noncompliance POA Possible osteomyelitis focal the 3rd distal phalanx right foot. PLAN: Patient remains admitted to the medical floor Continue the patient on broad-spectrum IV antibiotics, patient DCC input noted and appreciated. Patient evaluated by ornament stapler, MRI reviewed, patient most likely we will need amputation of the 3rd toe. Continue local wound care, continue with physical therapy. Patient will be working with the hospice social worker for insurance coverage. Podiatry consulted, appreciate recommendations Disposition: Pending amputation tomorrow and postop course ARSENIO PATRICK MD Oct 04, 2024 16:20
--- NOTE | 2024-10-04 22:15 | PN ---
INFECTIOUS DISEASE PROGRESS NOTE Date of Service: Oct 04, 2024 SUBJECTIVE: This is a 59-year-old female patient who was seen and examined at bedside in room 330. Patient is awake, alert and oriented x3. Right 3rd toe amputation has been rescheduled for tomorrow. No fever, temperature 98.1. We will continue on cefazolin IV. No other issues reported by nursing. PHYSICAL EXAM EYES: Anicteric. Pupils equal and reactive. HENT: No oral thrush seen, moist Oral mucosa NECK: Supple, no JVD or thyromegaly. LUNGS: Good air entry. No rales, no rhonchi. CARDIOVASCULAR: S1, S2 regular. No murmur heard. ABDOMEN: Soft, non tender, bowel sounds present, no organomegaly CENTRAL NERVOUS SYSTEM: Awake, alert, oriented x 3. SKIN: No rashes, no swelling. LYMPHATICS: No peripheral lymphadenopathy MUSCULOSKELETAL: No joint swelling, erythema or tenderness. EXTREMITIES: No cyanosis or clubbing. Right 3rd toe diabetic foot ulcer with abscess and osteomyelitis. BACK: No deformity, no pressure ulcer. GENITOURINARY: No dysuria or hematuria. Vital Sign (Last 12 Hours) 10/04/24 10/04/24 10/04/24 11:29 16:01 19:00 Temp 98.1 98.2 98.4 Pulse 85 83 88 Resp 17 16 20 B/P (MAP) 162/78 142/74 139/67 Pulse Ox 98 98 94 O2 Delivery Room Air Room Air Room Air Intake & Output (last 24hrs) 10/03/24 10/03/24 10/04/24 15:00 23:00 07:00 Intake Total 100.0 ml 340.0 ml Balance 100.0 ml 340.0 ml LABS: Laboratory: Test 10/04/24 19:41 10/03/24 03:50 Range/Units Whole Blood Glucose 260 H 70-110 MG/DL Bedside Glucose Comment Notified Nurse White Blood Count 11.5 H 4.8-10.8 K/uL Red Blood Count 3.08 L 4.00-5.50 MIL/uL Hemoglobin 9.2 L 12.0-16.0 g/dL Hematocrit 29.3 L 36-48 % Mean Corpuscular Volume 95.1 79-99 fL Mean Corpuscular Hemoglobin 29.9 27.0-33.0 pg Mean Corpuscular Hemoglobin Concent 31.4 L 32.0-36.0 g/dL Red Cell Distribution Width 13.4 11.0-15.5 % Platelet Count 394 130-400 K/uL Mean Platelet Volume 9.1 7.5-10.5 fL Immature Granulocyte % (Auto) 2.3 H 0-1 % Neutrophils (%) (Auto) 73.0 40.0-77.0 % Lymphocytes (%) (Auto) 14.6 L 21.0-51.0 % Monocytes (%) (Auto) 7.4 3.0-13.0 % Eosinophils (%) (Auto) 2.3 0.0-8.0 % Basophils (%) (Auto) 0.4 0.0-5.0 % Neutrophils # (Auto) 8.4 H 1.8-7.7 K/uL Lymphocytes # (Auto) 1.7 1.0-4.8 K/uL Monocytes # (Auto) 0.9 0.1-1.0 K/uL Eosinophils # (Auto) 0.27 0.00-0.70 K/uL Basophils # (Auto) 0.05 0.00-0.20 K/uL Absolute Immature Granulocyte (auto 0.26 0-1 K/uL Nucleated Red Blood Cells 0.0 0.0-0.19 % Sodium Level 141 136-145 mmol/L Potassium Level 3.9 3.5-5.1 mmol/L Chloride Level 103 101-111 mmol/L Carbon Dioxide Level 34 H 21-32 mmol/L Blood Urea Nitrogen 15 7-18 mg/dL Creatinine 0.7 0.5-1.0 mg/dL Glomerular Filtration Rate Calc 100 >90 mL/min Random Glucose 91 70-105 mg/dL Total Calcium 8.5 8.5-10.1 mg/dL ASSESSMENT: Right 3rd toe osteomyelitis. Right 3rd toe diabetic foot ulcer with abscess. Infection with methicillin sensitive Staphylococcus aureus. Sepsis. History of right great toe amputation. Diabetes mellitus. PLAN: Continue Ancef as currently ordered. Continue monitoring glucose levels. Continue wound care. Continue pain management. Continue antiplatelets. Right 3rd toe amputation has been rescheduled for tomorrow. This case was reviewed and discussed with my supervising physician and the above assessment and plan was formulated and agreed upon. ATTESTATION BY PHYSICIAN I have seen and examined the patient. I reviewed the documentation, medical decision making, and treatment plan as noted by the mid-level provider above. I agree with the findings and plan of care. LUIS ANTONIO SERRANO MD, [facility]TA [facility] Oct 04, 2024 22:15
[2024-10-05] VITALS (24 sets, daily range): BP systolic 90–147; BP diastolic 42–79; PULSE 67–91; RESP 15–20; TEMP 97.2–98.3; O2SAT 94–98
[2024-10-05 04:33] LABS: BASOPHILS # (AUTO) 0.05 K/uL (0.00-0.20); BASOPHILS % (AUTO) 0.5 % (0.0-5.0); EOSINOPHILS # (AUTO) 0.32 K/uL (0.00-0.70); HEMATOCRIT 29.4 % (36-48); IMMATURE GRANULOCYTE ABSOLUTE 0.25 K/uL (0-1); LYMPHOCYTES # (AUTO) 1.4 K/uL (1.0-4.8); LYMPHOCYTES % (AUTO) 13.1 % (21.0-51.0); MEAN CORPUSCULAR HEMOGLOBIN 31.4 pg (27.0-33.0); MEAN CORPUSCULAR HGB CONC 32.7 g/dL (32.0-36.0); MEAN CORPUSCULAR VOLUME 96.1 fL (79-99); MONOCYTES # (AUTO) 0.8 K/uL (0.1-1.0); MONOCYTES % (AUTO) 7.5 % (3.0-13.0); NEUTROPHILS % (AUTO) 73.6 % (40.0-77.0); PLATELET COUNT (AUTO) 405 K/uL (130-400); RED BLOOD CELL COUNT(AUTO) 3.06 MIL/uL (4.00-5.50); RED CELL DISTRIBUTION WIDTH 13.7 % (11.0-15.5); WHITE BLOOD COUNT (AUTO) 10.8 K/uL (4.8-10.8)
[2024-10-05 04:47] LABS: CREATININE 0.7 mg/dL (0.5-1.0); MAGNESIUM 1.8 mg/dL (1.80-2.40); PHOSPHORUS 4.3 mg/dL (2.5-4.9); POTASSIUM 3.8 mmol/L (3.5-5.1)
[2024-10-05] MEDS: 0.9%NACL 1000ML 1,000 ML IV ONE (06:34)
[2024-10-05] MEDS ORDERED: MIDAZOLAM HCL 1 MG/ML 2ML VIAL ONE (06:42)
[2024-10-05] MEDS ORDERED: LIDOCAINE PF 100MG/5ML (2%) SYRINGE 5ML ONE (06:42)
[2024-10-05] MEDS ORDERED: FENTanyl CITRate PF 50 MCG/1 ML 2ML VIAL ONE (06:42)
[2024-10-05] MEDS ORDERED: proPOFol 10 MG/ML 20ML VIAL IV ONE (06:42)
[2024-10-05] MEDS ORDERED: LIDOCAINE HCL 1% 20 ML VIAL ONE (06:50)
[2024-10-05] MEDS: LIDOCAINE HCL 1% 20 ML VIAL INJ ONE (06:54)
[2024-10-05] MEDS: BUPIvacaine/PF 0.5% 30ML VIAL ONE (06:54)
[2024-10-05] MEDS ORDERED: dexaMETHasone SOD PHOSPHATE 4 MG/ML 1ML VIAL ONE (07:03)
[2024-10-05] MEDS ORDERED: ondanSETRON 4MG INJ ONE (07:03)
--- NOTE | 2024-10-05 07:26 | OP ---
Operative Note: DATE OF PROCEDURE: 10/05/24 SURGEON: ALIE GOOD DPM [employer]LECOMM[employer]ICATION[employer] NETWORK PLANNER: Or Tech ANESTHESIA: 10 cc 1% xylocaine 0.25% bupivacaine via local infiltration plain under IV sedation ANESTHESIOLOGIST/BOBTAIL DRIVER: Ulises Fam CRNA PREOPERATIVE DIAGNOSIS: Osteomyelitis 3rd toe right POSTOPERATIVE DIAGNOSIS: Cellulitis 3rd toe right SYNOPSIS: This female 59 years old was admitted through the emergency room with abscess and cellulitis to the 3rd toe right MRI demonstrated osteomyelitis of the 3rd toe right at this time decision was made for amputation of the 3rd toe right in an attempt to salvage the foot no guarantees were offered at this time patient has comorbidities of peripheral vascular disease and diabetes with neuropathy. PROCEDURE: Amputation 3rd toe right at the level of the metatarsophalangeal joint ESTIMATED BLOOD LOSS: Less than 3 cc INDICATIONS: Osteomyelitis DESCRIPTION OF PROCEDURE: Patient was brought into the operating room table placed in the supine position. At this time the right foot was prepped and draped in the usual sterile fashion. On the IV sedation local anesthesia was given via local infiltration of the metatarsal level 3rd of 1% xylocaine 0.25% bupivacaine plain total of 10 cc. At this time the foot was prepped and draped in the usual sterile fashion. Utilizing a 15 blade two semielliptical incision were performed along the metatarsophalangeal joint. The incision was carried down through subcutaneous tissue making sure to protect and retract neurovascular structures down to capsular level were lateral collateral medial collateral extensor and flexor tendons were dissected by this way disarticulating the metatarsophalangeal joint and removing the toe from the operative site. At this moment the wound was irrigated with copious amounts saline solution bleeders were cauterized utilizing electrocautery cultures and sensitivity were taken. At this time the wound were reapproximated utilizing 2- 0 nylon on the simple fashion dressing was applied lysing Adaptic 4x4s and Kerlix patient tolerated procedure and anesthesia well was sent to recovery room then to the floor for continued medical management and possible discharge in the next 24-48 hours. ALIE GOOD DPM Oct 05, 2024 07:26
--- NOTE | 2024-10-05 13:07 | PN ---
[facility] PROGRESS NOTE Date of Service: Oct 05, 2024 Time of Service: 13:06 SUBJECTIVE: This is a 59-year-old presented in ED with concern of her right 3rd toe swelling and redness and decided to come to ED for further evaluation. Onset for several days. Patient reported no injury to foot. Patient reported she has peripheral neuropathy. Noted cellulitis and discoloration of 3rd toe no drainage. She denied fever chills. Patient admitted to the medical floor for further evaluation and medical management. X-ray of the right foot was done, no evidence for fracture or subluxation. Arterial Doppler done, 50-80% stenosis of the proximal right SFA and proximal right popliteal artery, monophasic flow of the bilateral distal anterior tibial arteries as well as along the bilateral dorsalis pedis. Patient remains hemodynamically stable, afebrile, saturating normal on room air, WBC trending down 12.6. Magnesium 1.7. Patient is currently getting IV antibiotics during my visit. 09/25 patient is seen and examined at bedside, case discussed with the RN, no acute events overnight, hemodynamically stable. Patient evaluated by soap maker yesterday, I and D performed at bedside. We will continue with current pain medication, IV antibiotics, dressing changes. Patient evaluated by advisory intern, patient has been. Plavix 75 mg p.o. daily added. Follow results of MRI of the right foot, if osteomyelitis confirmed, may need to consider invasive Angiography versus CTA runoff. 09/26 patient is seen and examined at bedside, patient is still spiking fever, she is alert oriented x3, hemodynamically stable, maximum temperature last night 101.5. Septic workup reviewed, so far blood cultures negative, and aerobic culture preliminary report no growth yet. Aorta runoff normal examination, no significant vascular abnormalities identified, no significant peripheral vascular disease, runoff is preserved bilaterally. In the MRI to the right foot. Continue broad-spectrum IV antibiotics. Continue dressing changes to the right foot per Podiatry recommendations. 09/27 patient is seen and examined at bedside, case discussed with the RN, no acute events overnight, during my visit patient comfortably in bed, alert oriented x3, hemodynamically stable, results of MRI to the right foot with po ssible osteomyelitis, involving the 3rd distal phalanx. Discussed with the patient. 09/28 patient is seen and examined at bedside, case discussed with the RN, no acute events overnight, patient getting IV antibiotics at the time of my visit, getting good pain control with current medical management. No chest pain, no nausea, no vomiting, patient had slight temperature 100.2 last night. Persistent leukocytosis 11.5. Hemoglobin 9.7, hematocrit 29.8. Patient evaluated by soap maker, patient most likely we will require amputation of the 3rd toe continue local wound care. 09/29 patient is seen and examined at bedside, case discussed with the RN, no acute events overnight, patient getting IV antibiotics at the time of my visit, getting good pain control with current medical management. Patient is still spiking fever, last night 101.7. Patient evaluated by soap maker, MRI reviewed, patient most likely will need amputation of the 3rd toe. Continue local wound care, continue with physical therapy. Patient will be working with the social science teacher for insurance coverage. Podiatry to revisit this week to allow patient to make decision regarding surgical intervention. 09/30 patient seen at bedside, no acute events overnight. Podiatry recommended continue antibiotics until Wednesday at which time they will reassess for possible amputation versus continued medical management. He has no complaints at this time, vitals and labs are relatively unremarkable. 10/01 Pt seen at bedside, no acute events overnight. Continue antibiotics until Wednesday. Vitals and labs relatively unremarkable 10/02 Pt seen at bedside, no acute events overnight. Pending podiatry reevaluation today, will follow up with their recommendations. 10/03 patient seen at bedside, no acute events overnight. Podiatry discuss options with the patient and she decided she we will go ahead with amputation, we will be scheduled for tomorrow. We will follow up postprocedure. 10/04 patient seen at bedside, no acute events overnight. Amputation rescheduled again for tomorrow. Lab holiday today, repeat labs tomorrow 10/05 patient seen at bedside, no acute events overnight. Amputation was done early this morning, patient seen at bedside, her postoperative dressing appeared to be soft with some sanguinous output, discussed with Podiatry and the dressing we will be reinforced and Podiatry we will reassess again later today. REVIEW OF SYSTEMS a 14 point ROS obtained all relevant positive documented otherwise ROS negative PHYSICAL EXAM GENERAL APPEARANCE: The patient is awake, alert, and oriented, in no acute car diopulmonary distress. NEUROLOGICAL: Cranial nerves II-XII grossly intact. Motor is 5/5 in bilateral upper and lower extremities proximal to distal. No sensory deficits. HEENT: Face is symmetric. Pupils are equal and reactive. Extraocular movements are intact. NECK: Supple. No JVD. No thyromegaly. No submental, submandibular, pre- /postauricular, occipital or supraclavicular lymphadenopathy. CHEST: Normal chest expansion. No Telemetry. LUNGS: Absence of any rales, rhonchi or any wheezing. CARDIOVASCULAR: Regular. S1 and S2 normal. No appreciable rubs, murmurs or gallops. ABDOMEN: Soft, nontender, and nondistended. There is no rebound, voluntary guarding, or rigidity. : Deferred. No Best. EXTREMITIES: Non-edematous and not cyanotic. No clubbing. Good capillary refill. Right foot 3rd toe swollen erythematous. Amputation to the right great toe. Palpable pedal pulses. SKIN: No skin breakdown. Vital Signs (last 8hr) Date Time Temp Pulse Resp B/P (MAP) Pulse Ox O2 Delivery O2 Flow Rate FiO2 10/05/24 12:30 74 17 136/72 97 Room Air 10/05/24 11:30 76 17 130/74 97 Room Air 10/05/24 10:30 98.1 80 17 132/70 96 Room Air 10/05/24 09:30 76 17 137/72 97 Nasal Cannula 3.0 10/05/24 09:00 74 17 132/76 98 Nasal Cannula 3.0 10/05/24 08:30 97.9 76 17 135/78 98 Nasal Cannula 3.0 10/05/24 08:15 77 17 139/79 99 Nasal Cannula 3.0 10/05/24 08:00 98 Room Air* 0 21 10/05/24 08:00 76 18 133/76 99 Nasal Cannula 3.0 10/05/24 07:47 97.9 75 16 125/70 96 Nasal Cannula 2.0 10/05/24 07:45 97.9 79 18 123/72 96 Nasal Cannula 3.0 10/05/24 07:42 76 17 116/67 96 Nasal Cannula 2.0 10/05/24 07:37 78 16 114/62 96 Nasal Cannula 2.0 10/05/24 07:32 74 15 109/63 95 Nasal Cannula 2.0 10/05/24 07:27 72 16 103/57 97 Nasal Cannula 2.0 10/05/24 07:22 67 15 95/49 97 Nasal Cannula 2.0 10/05/24 07:17 98.1 68 16 90/42 99 Nonrebreathing Mask 10.0 10/05/24 06:25 97.2 85 18 140/70 98 Room Air LABS: Laboratory: Test 10/05/24 10:47 10/05/24 03:38 10/04/24 19:41 Range/Units Whole Blood Glucose 197 #H 70-110 MG/DL White Blood Count 10.8 4.8-10.8 K/uL Red Blood Count 3.06 L 4.00-5.50 MIL/uL Hemoglobin 9.6 L 12.0-16.0 g/dL Hematocrit 29.4 L 36-48 % Mean Corpuscular Volume 96.1 79-99 fL Mean Corpuscular Hemoglobin 31.4 27.0-33.0 pg Mean Corpuscular Hemoglobin Concent 32.7 32.0-36.0 g/dL Red Cell Distribution Width 13.7 11.0-15.5 % Platelet Count 405 H 130-400 K/uL Mean Platelet Volume 9.1 7.5-10.5 fL Immature Granulocyte % (Auto) 2.3 H 0-1 % Neutrophils (%) (Auto) 73.6 40.0-77.0 % Lymphocytes (%) (Auto) 13.1 L 21.0-51.0 % Monocytes (%) (Auto) 7.5 3.0-13.0 % Eosinophils (%) (Auto) 3.0 0.0-8.0 % Basophils (%) (Auto) 0.5 0.0-5.0 % Neutrophils # (Auto) 8.0 H 1.8-7.7 K/uL Lymphocytes # (Auto) 1.4 1.0-4.8 K/uL Monocytes # (Auto) 0.8 0.1-1.0 K/uL Eosinophils # (Auto) 0.32 0.00-0.70 K/uL Basophils # (Auto) 0.05 0.00-0.20 K/uL Absolute Immature Granulocyte (auto 0.25 0-1 K/uL Nucleated Red Blood Cells 0.0 0.0-0.19 % Sodium Level 138 136-145 mmol/L Potassium Level 3.8 3.5-5.1 mmol/L Chloride Level 103 101-111 mmol/L Carbon Dioxide Level 31 21-32 mmol/L Blood Urea Nitrogen 21 H 7-18 mg/dL Creatinine 0.7 0.5-1.0 mg/dL Glomerular Filtration Rate Calc 100 >90 mL/min Random Glucose 124 H 70-105 mg/dL Total Calcium 8.4 L 8.5-10.1 mg/dL Phosphorus Level 4.3 2.5-4.9 mg/dL Magnesium Level 1.80 1.80-2.40 mg/dL Bedside Glucose Comment Notified Nurse Current Medications Medications (Trade) Dose Ordered Sig/David Route PRN Reason Start Time Stop Time Status Last Admin Dose Admin Acetaminophen (TYLenol 325MG TAB) 650 mg Q4H PRN PO TEMPERATURE GREATER THAN 101.5 09/23/24 17:00 10/23/24 16:59 09/28/24 20:03 650 MG Acetaminophen/ Codeine Phosphate (TYLenol-coDEINE TAB) 1 tab Q4H PRN PO MODERATE PAIN (4-6) 09/23/24 17:00 10/23/24 16:59 Aspirin (Aspirin 81mg Ec Tab) 81 mg DAILY PO 09/25/24 09:00 10/25/24 08:59 10/05/24 08:31 81 MG Atorvastatin Calcium (LIPItor 40MG) 80 mg DAILY PO 09/25/24 09:00 10/25/24 08:59 10/05/24 08:31 80 MG Bacitracin (Bacitracin 28.4gm) 1 PATRICK AD DAILY TP 09/25/24 09:00 10/25/24 08:59 10/04/24 08:23 1 GM Cefazolin Sodium (Ancef) 2 gm Q8H IVPB 09/29/24 12:30 10/20/24 12:29 10/05/24 11:48 2 GM Clopidogrel Bisulfate (plaVIX 75MG) 75 mg DAILY PO 09/25/24 09:00 10/25/24 08:59 10/05/24 08:31 75 MG Enoxaparin Sodium (Lovenox) 40 mg DAILY SQ 09/25/24 09:00 10/25/24 08:59 10/03/24 08:27 40 MG Fluoxetine HCl (FLUoxetine HCL 20 MG CAPSULE) 20 mg DAILY PO 09/25/24 09:00 10/25/24 08:59 10/05/24 08:31 20 MG Gabapentin (NEURontin 100 mg CAP) 100 mg TID PO 09/24/24 14:00 10/24/24 13:59 10/05/24 08:31 100 MG Glipizide (GLUCOtrol 5MG TABLET) 5 mg DAILY PO 09/25/24 09:00 09/30/24 06:38 DC 09/29/24 08:02 5 MG Hydralazine HCl (APRESOLine 20MG INJ) 5 mg Q4H PRN IV ADMINISTER FOR SBP > 160 09/23/24 17:00 10/23/24 16:59 Insulin Human Isoph/Insulin Regular (humuLIN 70-30 VIAL) 40 unit BIDAC SQ 09/24/24 16:30 10/24/24 16:29 10/04/24 16:43 40 UNIT Insulin Human Regular (humuLIN R 100 UNIT/ML 3ML) INSULIN SLIDING SCAL... ACHS SQ 09/23/24 21:00 10/23/24 20:59 10/05/24 11:46 4 UNIT Lactulose (Constulose 20gm/ 30ml Udcup) 20 gm BID PRN PO CONSTIPATION 09/23/24 17:00 10/23/24 16:59 Lisinopril (Prinivil 20mg) 20 mg DAILY PO 09/25/24 09:00 10/25/24 08:59 10/05/24 08:31 20 MG Magnesium Sulfate 50 ml @ 0 mls/hr PROTOCOL IV 09/24/24 11:00 10/24/24 10:59 10/05/24 05:34 25 MLS/HR Magnesium Sulfate 50 ml @ 0 mls/hr PROTOCOL PRN IV low mag level 09/23/24 17:00 09/24/24 10:58 DC Ondansetron HCl (zoFRAN 4MG INJ) 4 mg Q6H PRN IVP NAUSEA/VOMITING 09/23/24 17:00 10/23/24 16:59 Pharmacy Profile Note (Pharmacy Communication) 1 each ONCE MISC 09/23/24 17:30 09/24/24 07:32 DC Piperacillin Sod/ Tazobactam Sod (Zosyn 3.375gm+NS 50ml) 3.375 gm Q8H IV 09/23/24 16:30 09/29/24 12:21 DC 09/29/24 08:01 3.375 GM Potassium Chloride 100 ml @ 100 mls/hr AD PRN IV POTASSIUM PROTOCOL 09/23/24 17:00 10/23/24 16:59 09/26/24 04:45 100 MLS/HR Potassium Chloride (K-Dur/Klor-Con 20meq) 20 meq AD PRN PO POTASSIUM PROTOCOL 09/23/24 17:00 10/23/24 16:59 10/02/24 12:47 20 MEQ Potassium Chloride (KCl 10% Elixir 20meq/15ml) 20 meq AD PRN PO POTASSIUM PROTOCOL 09/23/24 17:00 10/23/24 16:59 Sodium Chloride 1,000 ml @ 75 mls/hr [id number] IV 09/23/24 17:00 10/23/24 16:59 10/04/24 04:07 75 MLS/HR Vancomycin HCl (Vancomycin 1g/ 250ml Kit) 1 gm Q12H IV 09/23/24 16:30 09/25/24 05:02 DC 09/25/24 04:37 1 GM Vancomycin HCl (Vancomycin 1g/ 250ml Kit) 1 gm Q8H IV 09/25/24 12:30 09/29/24 12:21 DC 09/29/24 04:37 1 GM DIAGNOSTICS / RADIOLOGY: [ ] ASSESSMENT: Abscess cellulitis 3rd toe right foot diabetic foot infection, POA Status post I&D 09/24/2024 Osteomyelitis of third distal phalangeal tuft POA Leukocytosis POA DM with Hyperglycemia POA Peripheral neuropathy POA PAD with 50-80% stenosis proximal right SFA and proximal right popliteal artery POA Medical noncompliance POA Possible osteomyelitis focal the 3rd distal phalanx right foot. PLAN: Patient remains admitted to the medical floor Continue the patient on broad-spectrum IV antibiotics, patient DCC input noted and appreciated. Patient evaluated by soap maker, MRI reviewed, patient most likely we will need amputation of the 3rd toe. Continue local wound care, continue with physical therapy. Patient will be working with the social science teacher for insurance coverage. Podiatry consulted, appreciate recommendations Disposition: Pending postop course ARSENIO PATRICK MD Oct 05, 2024 13:07
--- NOTE | 2024-10-05 13:34 | PN ---
INFECTIOUS DISEASE PROGRESS NOTE Date of Service: Oct 05, 2024 SUBJECTIVE: This is a 59-year-old female patient who was seen and examined at bedside in room 330. Patient is status post amputation of the right 3rd toe today. No fever, temperature is 98.1 and a WBC of 10.8. We will continue on cefazolin IV. We will follow up on the intraoperative wound culture results and possible cleared for discharge on oral antibiotics tomorrow. PHYSICAL EXAM EYES: Anicteric. Pupils equal and reactive. HENT: No oral thrush seen, moist Oral mucosa NECK: Supple, no JVD or thyromegaly. LUNGS: Good air entry. No rales, no rhonchi. CARDIOVASCULAR: S1, S2 regular. No murmur heard. ABDOMEN: Soft, non tender, bowel sounds present, no organomegaly CENTRAL NERVOUS SYSTEM: Awake, alert, oriented x 3. SKIN: No rashes, no swelling. LYMPHATICS: No peripheral lymphadenopathy MUSCULOSKELETAL: No joint swelling, erythema or tenderness. EXTREMITIES: No cyanosis or clubbing. Right 3rd toe diabetic foot ulcer with abscess and osteomyelitis. BACK: No deformity, no pressure ulcer. GENITOURINARY: No dysuria or hematuria. Vital Sign (Last 12 Hours) 10/05/24 10/05/24 10/05/24 10/05/24 04:00 06:25 07:17 07:22 Temp 98.2 97.2 98.1 Pulse 88 85 68 67 Resp 20 18 16 15 B/P (MAP) 136/72 140/70 90/42 95/49 Pulse Ox 97 98 99 97 O2 Delivery Room Air Room Air Nonrebreathing Mask Nasal Cannula O2 Flow Rate 10.0 2.0 10/05/24 10/05/24 10/05/24 10/05/24 07:27 07:32 07:37 07:42 Pulse 72 74 78 76 Resp 16 15 16 17 B/P (MAP) 103/57 109/63 114/62 116/67 Pulse Ox 97 95 96 96 O2 Delivery Nasal Cannula Nasal Cannula Nasal Cannula Nasal Cannula O2 Flow Rate 2.0 2.0 2.0 2.0 10/05/24 10/05/24 10/05/24 10/05/24 07:45 07:47 08:00 08:00 Temp 97.9 97.9 Pulse 79 75 76 Resp 18 16 18 B/P (MAP) 123/72 125/70 133/76 Pulse Ox 96 96 99 98 O2 Delivery Nasal Cannula Nasal Cannula Nasal Cannula Room Air* O2 Flow Rate 3.0 2.0 3.0 0 FiO2 21 10/05/24 10/05/24 10/05/24 10/05/24 08:15 08:30 09:00 09:30 Temp 97.9 Pulse 77 76 74 76 Resp 17 17 17 17 B/P (MAP) 139/79 135/78 132/76 137/72 Pulse Ox 99 98 98 97 O2 Delivery Nasal Cannula Nasal Cannula Nasal Cannula Nasal Cannula O2 Flow Rate 3.0 3.0 3.0 3.0 10/05/24 10/05/24 10/05/24 10:30 11:30 12:30 Temp 98.1 Pulse 80 76 74 Resp 17 17 17 B/P (MAP) 132/70 130/74 136/72 Pulse Ox 96 97 97 O2 Delivery Room Air Room Air Room Air Intake & Output (last 24hrs) 10/04/24 10/04/24 10/05/24 15:00 23:00 07:00 Intake Total 100.0 ml 150.0 ml Balance 100.0 ml 150.0 ml LABS: Laboratory: Test 10/05/24 10:47 10/05/24 03:38 10/04/24 19:41 Range/Units Whole Blood Glucose 197 #H 70-110 MG/DL White Blood Count 10.8 4.8-10.8 K/uL Red Blood Count 3.06 L 4.00-5.50 MIL/uL Hemoglobin 9.6 L 12.0-16.0 g/dL Hematocrit 29.4 L 36-48 % Mean Corpuscular Volume 96.1 79-99 fL Mean Corpuscular Hemoglobin 31.4 27.0-33.0 pg Mean Corpuscular Hemoglobin Concent 32.7 32.0-36.0 g/dL Red Cell Distribution Width 13.7 11.0-15.5 % Platelet Count 405 H 130-400 K/uL Mean Platelet Volume 9.1 7.5-10.5 fL Immature Granulocyte % (Auto) 2.3 H 0-1 % Neutrophils (%) (Auto) 73.6 40.0-77.0 % Lymphocytes (%) (Auto) 13.1 L 21.0-51.0 % Monocytes (%) (Auto) 7.5 3.0-13.0 % Eosinophils (%) (Auto) 3.0 0.0-8.0 % Basophils (%) (Auto) 0.5 0.0-5.0 % Neutrophils # (Auto) 8.0 H 1.8-7.7 K/uL Lymphocytes # (Auto) 1.4 1.0-4.8 K/uL Monocytes # (Auto) 0.8 0.1-1.0 K/uL Eosinophils # (Auto) 0.32 0.00-0.70 K/uL Basophils # (Auto) 0.05 0.00-0.20 K/uL Absolute Immature Granulocyte (auto 0.25 0-1 K/uL Nucleated Red Blood Cells 0.0 0.0-0.19 % Sodium Level 138 136-145 mmol/L Potassium Level 3.8 3.5-5.1 mmol/L Chloride Level 103 101-111 mmol/L Carbon Dioxide Level 31 21-32 mmol/L Blood Urea Nitrogen 21 H 7-18 mg/dL Creatinine 0.7 0.5-1.0 mg/dL Glomerular Filtration Rate Calc 100 >90 mL/min Random Glucose 124 H 70-105 mg/dL Total Calcium 8.4 L 8.5-10.1 mg/dL Phosphorus Level 4.3 2.5-4.9 mg/dL Magnesium Level 1.80 1.80-2.40 mg/dL Bedside Glucose Comment Notified Nurse ASSESSMENT: Right 3rd toe diabetic ulcer with osteomyelitis, status post amputation. Infection with methicillin sensitive Staphylococcus aureus. Sepsis. History of right great toe amputation. Diabetes mellitus. PLAN: Continue Ancef as currently ordered. Continue monitoring glucose levels. Continue wound care. Continue pain management. Continue antiplatelets. We will follow up on the intraoperative wound culture results and possible cleared or discharge on oral antibiotics tomorrow. This case was reviewed and discussed with my supervising physician and the above assessment and plan was formulated and agreed upon. ATTESTATION BY PHYSICIAN I have seen and examined the patient. I reviewed the documentation, medical decision making, and treatment plan as noted by the mid-level provider above. I agree with the findings and plan of care. LUIS ANTONIO SERRANO MD, MIRTA L [facility] Oct 05, 2024 13:34
[2024-10-06 04:16] LABS: BASOPHILS # (AUTO) 0.05 K/uL (0.00-0.20); BASOPHILS % (AUTO) 0.6 % (0.0-5.0); EOSINOPHILS # (AUTO) 0.26 K/uL (0.00-0.70); EOSINOPHILS % (AUTO) 3.1 % (0.0-8.0); HEMATOCRIT 27.8 % (36-48); IMMATURE GRANULOCYTE ABSOLUTE 0.12 K/uL (0-1); LYMPHOCYTES # (AUTO) 1.3 K/uL (1.0-4.8); LYMPHOCYTES % (AUTO) 14.7 % (21.0-51.0); MEAN CORPUSCULAR VOLUME 96.9 fL (79-99); MONOCYTES # (AUTO) 0.7 K/uL (0.1-1.0); NEUTROPHILS # (AUTO) 6.2 K/uL (1.8-7.7); NEUTROPHILS % (AUTO) 72.2 % (40.0-77.0); PLATELET COUNT (AUTO) 385 K/uL (130-400); RED BLOOD CELL COUNT(AUTO) 2.87 MIL/uL (4.00-5.50); RED CELL DISTRIBUTION WIDTH 13.8 % (11.0-15.5); WHITE BLOOD COUNT (AUTO) 8.5 K/uL (4.8-10.8)
[2024-10-06 04:29] VITALS: BP 130/67; PULSE 87; RESP 20; TEMP 98.6
[2024-10-06 04:35] LABS: CREATININE 0.8 mg/dL (0.5-1.0)
[2024-10-06 08:00] VITALS: BP 149/82; PULSE 85; RESP 17; TEMP 98.5; O2SAT 98
[2024-10-06 12:00] VITALS: BP 145/72; PULSE 87; RESP 17; TEMP 98.2
[2024-10-06] MEDS ORDERED: CLOP-31 PO (14:30)
[2024-10-06] MEDS ORDERED: AEC81 PO (14:30)
--- NOTE | 2024-10-06 14:51 | NUR ---
[facility] Follow-up: Patient re-assessed by wound healing team. Assessment and recommendations provided to primary nurse. Education provided. Patient s/p right 3rd toe amputation. Wound care done. Addendum: 10/06/24 at 1452 by MITCH SALINAS RN RN/ Amended: Links added.
--- NOTE | 2024-10-06 15:00 | NUR ---
note pt dc at this time, iv's removed dc paperwork provided, pending ride
--- NOTE | 2024-10-06 19:30 | DS ---
Discharge Summary Hospital Course Summary: 59-year-old presents in ED with concern of her right 3rd toe swelling and redness and decided to come to ED for further evaluation. Onset for several days. Patient reports no injury to foot. Patient reports she has peripheral neuropathy. Noted cellulitis and discoloration of 3rd toe no drainage. She d enies fever chills. She was admitted and Podiatry was consulted. Cardiology was consulted for further vascular workup, an abdominal CT with runoff was ordered that did not show any hemodynamically significant stenosis. She was started on empiric antibiotics, MRI was ordered of her foot that showed focal 3rd distal phalangeal osteomyelitis. Podiatry recommended amputation, initially the patient deferred preferring medical management however after several days of treatment with no improvement she accepted amputation. She was taken for a successful 3rd toe amputation. By hospital day 13 she was evaluated as stable and ready for discharge back home. Evp Operations(s): Infectious disease Podiatry Cardiology Procedure(s): MRI RIGHT MID AND FOREFOOT WITHOUT AND WITH CONTRAST INDICATION: Evaluate for osteomyelitis COMPARISON: None TECHNIQUE: Long and short axis fat and water weighted sequences were obtained through the right mid and forefoot before and after the administration of 12 mL of Clariscan contrast material without adverse effect. FINDINGS: Nominal coalescent low T1 signal encroaches upon the tip of the third distal phalanx, and nominal subcortical reactive marrow edema may be present at the same level. Amputation of the great toe phalanges. No evidence for periosteal reaction, cortical erosive changes, or any abnormal subperiosteal bone resorption. No high-grade ligamentous or tendinous abnormality detected. Midfoot alignment is well maintained, and Lisfranc ligament is intact. No significant degenerative joint disease identified. No evidence for sesamoiditis, sesamoid dysplasia, or sesamoid migration. No abnormal soft tissue mass, ganglion, or Cr's neuroma identified. No evidence for muscle atrophy, fatty infiltration, or denervation myoedema. No abnormal enhancement noted. No evidence for fracture. IMPRESSION: Findings suggesting focal third distal phalangeal tuft osteitis or very early osteomyelitis, without abscess. Exam Type: CT angiogram abdomen and pelvis and lower extremities run-off with contrast Exam Type: CT ANGIO ABD AORTA W RUNOFF Clinical Information: PAD Comparison: None Technique: Routine helical scanning at 5mm collimation through the abdomen and pelvis after contrast administration. In addition, sagittal and coronary formations of the abdomen pelvis and surface rendering three-dimensional reconstructions of the abdominal aorta and the bilateral lower extremity arterial system were performed. Findings: The vascular exam is unremarkable. The abdominal aorta, bifurcation, and both lower extremity arterial system to included the common femoral artery, the superficial femoral artery, the popliteal artery, and the vessels of the trifurcation runoff are intact bilaterally without evidence of significant atheromatous disease or occlusion. There is no aortic aneurysm. There is no occlusion. There is no dissection. There is no extravasation to suggest laceration or rupture. No evidence of nephro or ureterolithiasis is found. No hydronephrosis or ureteral dilatation is seen. The visualized portion of the stomach is unremarkable. It shows no wall thickening. No gross ulceration is seen. It is not overly distended. There are no surrounding inflammatory changes. No wall lesions are identified to suggest cancer. The visualized portion of the spleen is unremarkable. It is not enlarged. The pancreas shows normal anatomy. It is not fatty replaced. It shows no lesions. The pancreatic duct is not dilated. There is evidence of cholelithiasis. No evidence of acute or chronic inflammation is seen. The adrenal glands are unremarkable. There is no enlargement. No lesions are noted. The visualized portion of the liver is unremarkable. It shows no focal masses. The appendix is unremarkable. It shows no evidence of inflammation. No appendicolith is seen. The small bowel is unremarkable. There is no evidence of dilatation to suggest obstruction. No evidence of adynamic ileus is seen. There is no small bowel wall thickening to suggest enteritis. Abundant fecal matter is noted throughout the colon consistent with constipation. The urinary bladder is unremarkable. There is no wall thickening to suggest tumor or inflammation. There are no intraluminal calculi. There are no diverticula. There is no evidence of chronic bladder outlet obstruction. There is no evidence of urinary bladder distention to suggest urinary retention. The other pelvic structures are unremarkable. The bony and vascular structures are unremarkable for the patient's age. IMPRESSION: 1. Normal examination. No significant vascular abnormalities are identified. No significant peripheral vascular disease detected. Runoff is preserved bilaterally. This study was performed using dose reduction techniques to include automated exposure control and/or adjustment of the mA and/or kV according to patient size. ULTRASOUND ARTERIAL DUPLEX LOWER EXTREMITY, BILATERAL INDICATION: Infected foot diabetes mellitus TECHNIQUE: Routine grayscale, color Doppler, and power Doppler ultrasound of the bilateral lower extremity arteries were obtained. COMPARISON: None FINDINGS: Velocities in cm/sec. RIGHT: COMPUTER PROGRAMMING MANAGER: 139 SFA: Prox 209, Mid 192, Distal 187 Popliteal: 205 proximally and 175 distally Anterior Tibial: 140 distally Posterior tibial: 128 Dorsalis Pedis: Higher 23 Triphasic flow along the right lower extremity arterial system except for biphasic along the right posterior tibial artery and monophasic along the distal right anterior tibial artery as well as right dorsalis pedis artery. LEFT: COMPUTER PROGRAMMING MANAGER: 106 SFA: Prox 171, Mid 141, Distal 160 Popliteal: 118 proximally and 181 distally Anterior Tibial: 82 distally Posterior Tibial: 117 Dorsalis Pedis: 109 Triphasic flow along the left lower extremity arterial system except for monophasic along the distal left anterior tibial artery as well as along the left dorsalis pedis artery. Extensive calcific plaque along both lower extremity arterial system [place]. IMPRESSION: 50-80% stenosis along the proximal right SFA and proximal right popliteal artery. Monophasic flow along the bilateral distal anterior tibial arteries as well as along the bilateral dorsalis pedis arteries. Parameters as reported. RIGHT SECOND THROUGH FIFTH TOE RADIOGRAPHS - 2-3 VIEWS INDICATION: Pain after injury COMPARISON: None FINDINGS: AP, lateral views. Amputation of the first toe phalanges. No acute fracture or subluxation identified. No significant degenerative joint disease detected. No radiopaque foreign body noted. IMPRESSION: No evidence for fracture or subluxation. Assessment/Plan: Abscess cellulitis 3rd toe right foot diabetic foot infection, POA Status post I&D 09/24/2024 Status post amputation 3rd toe 10/05/24 Osteomyelitis of third distal phalangeal tuft POA Leukocytosis POA DM with Hyperglycemia POA Peripheral neuropathy POA PAD with 50-80% stenosis proximal right SFA and proximal right popliteal artery POA Medical noncompliance POA Possible osteomyelitis focal the 3rd distal phalanx right foot. Discharge Instructions: Follow up with PCP in 3-7 days Follow up with online advertising manager in 1-2 weeks Home Medications: Active Scripts Clopidogrel Bisulfate (Plavix) 75 Mg Tablet, 75 MG PO DAILY, #30 TAB Prov:ARSENIO PATRICK MD 10/06/24 Aspirin (ASPIRIN 81 MG ECTAB) 81 Mg Ectab, 81 MG PO DAILY, #30 TAB.EC Prov:ARSENIO PATRICK MD 10/06/24 Reported Medications Rosuvastatin Calcium (Rosuvastatin Calcium) 40 Mg Tablet, 1 TAB PO DAILY for high cholesterol for 30 Days, #30 TAB 0 Refills 09/24/24 Lisinopril (Lisinopril) 20 Mg Tablet, 1 TAB PO DAILY for 30 Days, #30 TAB 0 Refills 09/23/24 Gabapentin (Gabapentin) 100 Mg Capsule, 1 CAP PO TID for 30 Days, #90 CAP 0 Refills 09/23/24 [Kombiglyze Xr] 2.10/999 MG No Conflict Check, 1 TAB PO BID 09/23/24 Glipizide (Glipizide) 5 Mg Tablet, 1 TAB PO DAILY for 30 Days, #30 TAB 0 Refills 09/23/24 Fluoxetine HCl (Fluoxetine HCl) 20 Mg Tablet, 1 TAB PO DAILY for 30 Days, #30 TAB 0 Refills 09/23/24 Insuln Asp Prt/Insulin Aspart (Novolog Mix 70-30 Flexpen Syrn) 100 Unit/Ml (70- 30) Insuln.pen, 40 UNITS SQ BID, SYRINGE 09/23/24 New Medications: Aspirin (Aspirin 81 Mg Ectab) 81 Mg Ectab 81 MG PO DAILY, #30 TAB.EC Clopidogrel Bisulfate (Plavix) 75 Mg Tablet 75 MG PO DAILY, #30 TAB Continued Medications: Fluoxetine HCl (Fluoxetine HCl) 20 Mg Tablet 1 TAB PO DAILY for 30 Days, #30 TAB 0 Refills Gabapentin (Gabapentin) 100 Mg Capsule 1 CAP PO TID for 30 Days, #90 CAP 0 Refills Glipizide (Glipizide) 5 Mg Tablet 1 TAB PO DAILY for 30 Days, #30 TAB 0 Refills Insuln Asp Prt/Insulin Aspart (Novolog Mix 70-30 Flexpen Syrn) 100 Unit/Ml (70- 30) Insuln.pen 40 UNITS SQ BID, SYRINGE [Kombiglyze Xr] () 2.10/999 MG 1 TAB PO BID Lisinopril (Lisinopril) 20 Mg Tablet 1 TAB PO DAILY for 30 Days, #30 TAB 0 Refills Rosuvastatin Calcium (Rosuvastatin Calcium) 40 Mg Tablet 1 TAB PO DAILY for high cholesterol for 30 Days, #30 TAB 0 Refills Time spent arranging discharge: 31-60 minutes ARSENIO PATRICK MD Oct 06, 2024 19:30
--- NOTE | 2024-10-06 22:55 | PN ---
INFECTIOUS DISEASE PROGRESS NOTE Date of Service: Oct 06, 2024 SUBJECTIVE: This is a 59-year-old female patient who was seen and examined at bedside in room 330. Patient is s/p amputation of the right 3rd toe day # 1. Patient remaining afebrile, temperature 98.4 and a WBC of 8.5. From Infectious Disease standpoint patient can be discharged to home on Ceftin 500 mg p.o. b.i.d. x 14 days. Prescription was written. PHYSICAL EXAM EYES: Anicteric. Pupils equal and reactive. HENT: No oral thrush seen, moist Oral mucosa NECK: Supple, no JVD or thyromegaly. LUNGS: Good air entry. No rales, no rhonchi. CARDIOVASCULAR: S1, S2 regular. No murmur heard. ABDOMEN: Soft, non tender, bowel sounds present, no organomegaly CENTRAL NERVOUS SYSTEM: Awake, alert, oriented x 3. SKIN: No rashes, no swelling. LYMPHATICS: No peripheral lymphadenopathy MUSCULOSKELETAL: No joint swelling, erythema or tenderness. EXTREMITIES: No cyanosis or clubbing. Right 3rd toe diabetic foot ulcer and osteomyelitis, s/p amputation. BACK: No deformity, no pressure ulcer. GENITOURINARY: No dysuria or hematuria. Vital Sign (Last 12 Hours) 10/06/24 12:00 Temp 98.2 Pulse 87 Resp 17 B/P (MAP) 145/72 Pulse Ox 94 O2 Delivery Room Air Intake & Output (last 24hrs) 10/05/24 10/05/24 10/06/24 15:00 23:00 07:00 Intake Total 200 ml Balance 200 ml LABS: Laboratory: Test 10/06/24 11:31 10/06/24 03:37 10/05/24 19:28 10/05/24 03:38 Range/Units Whole Blood Glucose 79 70-110 MG/DL White Blood Count 8.5 4.8-10.8 K/uL Red Blood Count 2.87 L 4.00-5.50 MIL/uL Hemoglobin 8.9 L 12.0-16.0 g/dL Hematocrit 27.8 L 36-48 % Mean Corpuscular Volume 96.9 79-99 fL Mean Corpuscular Hemoglobin 31.0 27.0-33.0 pg Mean Corpuscular Hemoglobin Concent 32.0 32.0-36.0 g/dL Red Cell Distribution Width 13.8 11.0-15.5 % Platelet Count 385 130-400 K/uL Mean Platelet Volume 9.0 7.5-10.5 fL Immature Granulocyte % (Auto) 1.4 H 0-1 % Neutrophils (%) (Auto) 72.2 40.0-77.0 % Lymphocytes (%) (Auto) 14.7 L 21.0-51.0 % Monocytes (%) (Auto) 8.0 3.0-13.0 % Eosinophils (%) (Auto) 3.1 0.0-8.0 % Basophils (%) (Auto) 0.6 0.0-5.0 % Neutrophils # (Auto) 6.2 1.8-7.7 K/uL Lymphocytes # (Auto) 1.3 1.0-4.8 K/uL Monocytes # (Auto) 0.7 0.1-1.0 K/uL Eosinophils # (Auto) 0.26 0.00-0.70 K/uL Basophils # (Auto) 0.05 0.00-0.20 K/uL Absolute Immature Granulocyte (auto 0.12 0-1 K/uL Nucleated Red Blood Cells 0.0 0.0-0.19 % Sodium Level 139 136-145 mmol/L Potassium Level 4.0 3.5-5.1 mmol/L Chloride Level 104 101-111 mmol/L Carbon Dioxide Level 31 21-32 mmol/L Blood Urea Nitrogen 20 H 7-18 mg/dL Creatinine 0.8 0.5-1.0 mg/dL Glomerular Filtration Rate Calc 85 >90 mL/min Random Glucose 123 H 70-105 mg/dL Total Calcium 8.4 L 8.5-10.1 mg/dL Bedside Glucose Comment Notified Nurse Phosphorus Level 4.3 2.5-4.9 mg/dL Magnesium Level 1.80 1.80-2.40 mg/dL ASSESSMENT: Right 3rd toe diabetic ulcer with osteomyelitis, status post amputation. Infection with methicillin sensitive Staphylococcus aureus. Sepsis. History of right great toe amputation. Diabetes mellitus. PLAN: From Infectious Disease standpoint patient can be discharged to home on Ceftin 500 mg p.o. b.i.d. for 14 days. Prescription was written. This case was reviewed and discussed with my supervising physician and the above assessment and plan was formulated and agreed upon. ATTESTATION BY PHYSICIAN I have seen and examined the patient. I reviewed the documentation, medical decision making, and treatment plan as noted by the mid-level provider above. I agree with the findings and plan of care. LUIS ANTONIO SERRANO MD, [facility] Oct 06, 2024 22:55
== END 2024-10-06 15:45 | disposition home or self-care (01) | DRG 854 ==
LOC: EDH 14:30 → EDHIP 14:31 → 3AH 22:30
PROVIDERS: ADMIT Internal Medicine; ATTEND Internal Medicine
PROC: 0Y6T0Z0 Detachment at Right 3rd Toe, Complete, Open Approach (ICD-10-PCS; principal; 2024-10-05 07:00)
DX: A41.9 Sepsis, unspecified organism (principal); E44.0 Moderate protein-calorie malnutrition; L03.115 Cellulitis of right lower limb; L97.518 Non-pressure chronic ulcer of other part of right foot with other specified severity; M86.8X7 Other osteomyelitis, ankle and foot; E11.628 Type 2 diabetes mellitus with other skin complications; L03.031 Cellulitis of right toe; E11.42 Type 2 diabetes mellitus with diabetic polyneuropathy; E11.65 Type 2 diabetes mellitus with hyperglycemia; E78.5 Hyperlipidemia, unspecified; I10 Essential (primary) hypertension; I70.201 Unspecified atherosclerosis of native arteries of extremities, right leg; E11.51 Type 2 diabetes mellitus with diabetic peripheral angiopathy without gangrene; B95.61 Methicillin susceptible Staphylococcus aureus infection as the cause of diseases classified elsewhere; F41.9 Anxiety disorder, unspecified; F32.A Depression, unspecified; E11.621 Type 2 diabetes mellitus with foot ulcer; E11.69 Type 2 diabetes mellitus with other specified complication; Z79.02 Long term (current) use of antithrombotics/antiplatelets; Z86.73 Personal history of transient ischemic attack (TIA), and cerebral infarction without residual deficits; Z89.411 Acquired absence of right great toe; Z79.899 Other long term (current) drug therapy; Z83.3 Family history of diabetes mellitus; Z91.199 Patient's noncompliance with other medical treatment and regimen due to unspecified reason; Z89.419 Acquired absence of unspecified great toe; Z89.421 Acquired absence of other right toe(s); Z68.20 Body mass index [BMI] 20.0-20.9, adult
CPT/HCPCS: 36415; 73660; 73720; 75635; 80048; 80053; 80061; 80202; 81001; 82948; 83036; 83735; 84100; 85025; 85027; 85651; 86140; 87040; 87070; 87076; 87086; 87186; 93925; 99285; G0378; J1100; J1650; J1815; J2003; J2250; J2405; J2543; J2704; J3010; J3370; J3475; J3480; J7030; J7120; Q9967; A4216; A4222; A4223; A4649; A9575; J0665; J0690; J3490